=== PATIENT | female | born 1945 | race Caucasian/White ===

== ENCOUNTER 2020-10-15 22:32 | Inpatient (IN) | payer MEDICARE, SELFPAY ==
--- NOTE | 2020-10-15 08:55 | ECG_ITS ---
APPROVED REPORT Exam: Resting ECG HR:118 bpm ECG Measurements Heart Rate 118 AXES OK 166 P 56 QRSd 122 QRS -46 QT 334 T 81 QTc 468 Conclusion Sinus tachycardia Right bundle branch block Left anterior fascicular block Bifascicular block Abnormal ECG Electronically signed by : Ham Payne, 10/16/2020 21:08:26
--- NOTE | 2020-10-15 22:53 | PC.NURSE ---
patient arrived to floor at 22:36.
[2020-10-15 22:57] VITALS: BMI 24.3
[2020-10-16] VITALS (19 sets, daily range): BP systolic 105–134; BP diastolic 56–82; PULSE 98–119; RESP 12–20; TEMP 36.6–43; O2SAT 89–100; BMI 24.4
--- NOTE | 2020-10-16 00:01 | XR_ITS ---
PROCEDURE: XR CHEST PORTABLE CLINICAL HISTORY: sob COMPARISON: No exams were available for comparison FINDINGS: The cardiomediastinal silhouette and pulmonary vascularity are within normal limits. The lungs are clear without infiltrates, suspicious nodules, or pleural effusions. Surgical clips are present in the right paratracheal region. No acute bony finding. IMPRESSION: No acute findings. Dictated by: Jem Patterson MD 10/16/2020 08:27 Jem Patterson MD in [place] 10/16/2020 08:27
--- NOTE | 2020-10-16 00:25 | PC.NURSE ---
Med rec cannot be done at this time, pt is unable to recall medications taken
--- NOTE | 2020-10-16 04:20 | PC.NURSE ---
Pt A&O x4. Lungs CTA, on room air. Pt has been in immense pain since arrival to floor, pain has been partially relieved with dilaudid 1mg per mar. Pt has been NPO since midnight. Bowel soudns x4, abd soft and nontender. IV patent, NS @ 75. VSS, call light in reach, no concerns at this time.
[2020-10-16 07:20] LABS: Basophils % 0.3 % (0.1-2.0); Chloride 103 mmol/L (98-107); Hematocrit 40.6 % (37.0-47.0); Lymphocytes # 1.6 K/mm3 (0.7-4.5); Lymphocytes % 16.1 % (10-50); Mean Corpuscular HGB Conc 32.1 g/dL (31.8-35.4); Mean Corpuscular Hemoglobin 27.1 pg (27.0-31.2); Mean Corpuscular Volume 84.6 fl (81-99); Mean Platelet Volume 8.2 fl (7.4-10.4); Monocytes # 0.4 K/mm3 (0.1-1.0); Monocytes % 4.4 % (1.7-9.3); Neutrophils # 7.6 K/mm3 (1.8-7.8); Platelet Count 208 K/mm3 (142-424); Potassium 3.4 mmoL/L (3.5-5.1); Red Cell Distribution Width 12.5 % (11.5-17.5); Sodium 138 mmol/L (136-145); White Blood Count 9.6 K/mm3 (4.8-10.8)
[2020-10-16 07:23] LABS: Anion Gap 12.4 mEq/L (5-15); Blood Urea Nitrogen 16 mg/dl (7-17); Calcium 9.1 mg/dl (8.4-10.2); Carbon Dioxide 26 mmol/L (22.0-30.0); Creatinine Clearance Estimated 49 mL/min (50-200); Estimated Glomerular Filt Rate 120 ml/min (>60); GFR (African American) 145 ML/MIN (>60); Glucose 130 mg/dl (74-100)
[2020-10-16 07:24] LABS: Magnesium 1.9 mg/dl (1.6-2.3)
[2020-10-16 07:26] LABS: Prothrombin Time 10.7 seconds (10.1-12.5)
--- NOTE | 2020-10-16 07:54 | PC.NURSE ---
Dr. Brown notified of consult.
--- NOTE | 2020-10-16 08:37 | XR_ITS ---
PROCEDURE: XR HIP RT 2-3V W/PELVIS CLINICAL INDICATION: pain Fall with injury and pain COMPARISON: No exams were available for comparison FINDINGS: Fractures present through the right femoral neck in the transcervical/basicervical region with impaction of the fracture fragments. There is foreshortening of the femoral neck by approximately 1.7 cm. The femoral head is located. Mild osteoarthritic changes are present in the hips. There is some mild bony hypertrophy along the anterior superior iliac spine IMPRESSION: Impacted right femoral neck fracture Dictated by: Jem Patterson MD 10/16/2020 09:05 eJm Patterson MD in [facility] 10/16/2020 09:05
--- NOTE | 2020-10-16 09:31 | HMH.HP ---
*Admission Date: 10/15/20 *Chief complaint: fall *History of present illness: this is a wf who had fall at home trip type injury after playing with dog - she is ambulatory and lives at home - she was seen at [facility] and transferred to [facility] for ortho eval and treatment - she has htn but denied ht disease - and no prev issues with prev surg [facility] History I have reviewed the patient's past medical history: Yes Medical History: Reports:: Hyperlipidemia, Hypertension Denies:: Diabetes Mellitus Type 1, Diabetes Mellitus Type 2 *Have you ever received a pneumonia vaccine?: No *Have you received a flu vaccine this season?: No Other Medical History: Reports: Hypothyroidism Other Surgeries: Yes: Appendectomy, Cholecystectomy, Tubal Ligation - *Social History Last grade of school completed: GED Alcohol Intake: never *Occupational Status:: retired Household Members: spouse *Travel in the last 8 weeks: None Family Hx:: Unable to obtain Review of Systems - Review of Systems Review of systems:: pertinent systems reviewed and negative unless documented below - Constitutional Denies fever(s) - Eyes Denies change in vision - ENT Denies sore throat - *Cardiovascular Denies chest pain, Denies shortness of breath - *Respiratory Denies cough - *Gastrointestinal Denies abdominal pain - *Genitourinary Denies blood in urine - *Musculoskeletal Reports joint pain, Reports limited joint movement - Integumentary/Breasts Denies rash - *Neurologic Denies dizziness, Denies headache(s), Denies seizure-like activity - Psychiatric Denies depression Meds Allergies Allergy/AdvReac Type Severity Reaction Status Date / Time acetaminophen [From Percocet] AdvReac Mild Flushing Verified 10/16/20 01:13 oxycodone [From Percocet] AdvReac Mild Flushing Verified 10/16/20 01:13 Opioid Allergy Unknown Uncoded 07/02/17 14:38 Penicillin Allergy Unknown Uncoded 07/02/17 14:38 Sulfonamide Related Allergy Unknown Uncoded 07/02/17 14:38 Exam Vital signs and Labs for Last 24 Hours: Temp Pulse Resp BP Pulse Ox 99.1 F 119 H 18 134/72 90 L 10/16/20 08:00 10/16/20 08:00 10/16/20 08:00 10/16/20 08:00 10/16/20 08:00 Laboratory Results - last 24 hr 10/16/20 06:20: WBC 9.6, RBC 4.80, Hgb 13.0, Hct 40.6, MCV 84.6, MCH 27.1, MCHC 32.1, RDW 12.5, Plt Count 208, MPV 8.2, Neut % (Auto) 79.0, Lymph % (Auto) 16.1, [place]e % (Auto) 4.4, Eos % (Auto) 0.0 L, Baso % (Auto) 0.3, Neut # (Auto) 7.6, Lymph # (Auto) 1.6, [place] # (Auto) 0.4, Eos # (Auto) 0.0, Baso # (Auto) 0.0 10/16/20 06:20: PT 10.7, INR 0.90 10/16/20 06:20: Sodium 138, Potassium 3.4 L, Chloride 103, Carbon Dioxide 26, Anion Gap 12.4, BUN 16, Creatinine 0.50 L, Estimated Creat Clear 49, Estimated GFR 120, Est GFR ( Amer) 145, Glucose 130 H, Calcium 9.1, Magnesium 1.9 I & O for Last 24 hours: Intake & Output 10/13/20 10/14/20 10/15/20 10/16/20 11:59 11:59 11:59 11:59 Output Total 150 / 150 Balance -150 / -150 Weight 143 lb 3 oz - Constitutional no acute distress, average body habitus - *Routine HEENT Exam Head: Present: normocephalic Eye: Present: EOMI, PERRL ENT: Present: mucous membranes dry - *Routine Neck Exam Present: supple. Absent: JVD - *Routine Respiratory Exam Present: CTA bilaterally - *Routine Cardiovascular Exam Present: RRR, murmur, S4 - *Routine Abdominal Exam Present: soft - *Routine Extremities Exam Absent: calf tenderness Comments: rt lower leg shortening with pain with rom - *Routine Skin Exam Present: intact - *Routine Neurological Exam Present: alert, oriented X3, CN II-XII intact. Absent: motor deficit - Routine Psychiatric Exam Present: normal affect Assessment and Plan (1) Hip fracture Status: Acute Qualifiers: Encounter type: initial encounter Fracture type: closed Laterality: right Qualified Code(s): S72.001A - Fracture of unspecified part of neck of right femur, initial encounte
[2020-10-16 10:24] LABS: Microscopic, Urine URINE MICROSCOPIC (MICROSCOPIC)
--- NOTE | 2020-10-16 10:41 | HMH.ORTHOCON ---
*Admission Date: 10/15/20 *Reason for consult:: Fracture neck of femur, right hip *History of present illness: Ms Guerrero is a 75 year old female admitted to [facility] last night following transfer from [facility] for management of her RIGHT hip fracture. She says she is a resident of [place] and went to visit her son. She says a dog jumped on her while she was getting out of the car, causing her to fall and injure the right hip. She says she could not get up or walk after the fall. She reports that she was initially taken to a local hospital from where she was transferred to [facility]. However, [facility] contacted us to transfer the patient as their orthopedic surgeon is out of town for few days. Patient was transferred here last night and admitted to the floor under Dr. Malcolm's team. This morning she says she has pain around the right hip and spasms in the right lower extremity. 2 of her sons are by her bedside; one of the son lives here in [place]. X-rays at [facility] confirmed a displaced subcapital femoral neck fracture on the RIGHT side. Patient says she lives with her . She says she was mobile and independent prior to the fall. She normally does not use any walking aids. She reports that she had back surgery about 5 to 6 years ago and still continues to have occasional back pain. No history of any distal tingling or numbness, radicular symptoms or weakness. No history of any hip pain or problems prior to the fall. She has history of hypertension and hyperlipidemia but otherwise in fairly good health. She denies any other injuries including head injury, neck injury, back injury, chest or abdominal injury or upper extremity injury. She has not otherwise been ill. No history of any dizziness, headache or neck pain. She denies loss of consciousness, chest pain and shortness of breath. [facility] History I have reviewed the patient's past medical history: Yes Medical History: Reports:: Hyperlipidemia, Hypertension Denies:: Diabetes Mellitus Type 1, Diabetes Mellitus Type 2 *Have you ever received a pneumonia vaccine?: No *Have you received a flu vaccine this season?: No Other Medical History: Reports: Hypothyroidism Other Surgeries: Yes: Appendectomy, Cholecystectomy, Tubal Ligation - *Social History Last grade of school completed: GED Alcohol Intake: never *Occupational Status:: retired Household Members: spouse *Travel in the last 8 weeks: None Family Hx:: Unable to obtain Review of Systems - Review of Systems Review of systems:: pertinent systems reviewed and negative unless documented below - Constitutional Denies anorexia, Denies chills, Denies fever(s) - Eyes Denies change in vision - ENT Denies abnormal hearing, Denies change in voice - *Cardiovascular Denies chest pain, Denies shortness of breath - *Respiratory Denies chest congestion, Denies cough - *Gastrointestinal Denies abdominal pain - *Musculoskeletal Reports abnormal walking, Reports limited joint movement - *Neurologic Denies dizziness, Denies headache(s), Denies seizure-like activity - Endocrine Denies cold intolerance, Denies heat intolerance - Hematologic/Lymphatic Denies easy bleeding, Denies easy bruising Meds Allergies Allergy/AdvReac Type Severity Reaction Status Date / Time acetaminophen [From Percocet] AdvReac Mild Flushing Verified 10/16/20 01:13 oxycodone [From Percocet] AdvReac Mild Flushing Verified 10/16/20 01:13 Opioid Allergy Unknown Uncoded 07/02/17 14:38 Penicillin Allergy Unknown Uncoded 07/02/17 14:38 Sulfonamide Related Allergy Unknown Uncoded 07/02/17 14:38 Exam Vital signs and Labs for Last 24 Hours: Temp Pulse Resp BP Pulse Ox 99.1 F 119 H 18 134/72 90 L 10/16/20 08:00 10/16/20 08:00 10/16/20 08:00 10/16/20 08:00 10/16/20 08:00 Laboratory Results - last 24 hr 10/16/20 06:20: WBC 9.6, RBC 4.80, Hgb 13.0, Hc
[2020-10-16 10:43] LABS: Appearance,Urine SL CLOUDY (Clear); Bilirubin,Urine Negative (Negative); Blood, Urine 1+ (Negative); Color,Urine YELLOW (Yellow); Glucose,Urine (UA) Negative (Negative); Ketones,Urine 1+ (Negative); Leukocyte Esterase,Urine Negative (Negative); Nitrate,Urine Negative (Negative); PH,Urine 5.5 (5.0-8.5); Protein,Urine TRACE (Negative); Specific Gravity, Urine >= 1.030 (1.005-1.030); Urobilinogen,Urine 0.2 EU/dl (0.2)
[2020-10-16 11:14] LABS: Amorphous Sediment,Urine 2+ /lpf; Mucus,Urine 1+ /lpf
--- NOTE | 2020-10-16 12:21 | P.PN_ITS ---
[facility] Anesthesia Checklist - Structural Data Admitted From: Inpatient Planned Operative Procedure/s: orif r hip Consent for Planned Operative Procedure(s) Verified: Yes - Airway Assessment C-Spine Mobility Assessed: Yes TMJ Mobility Assessed: Yes Dentition: Poor Dentition - Neurological Assessment Level of Consciousness: Awake, Alert, Appropriate - Anesthesia Plan Anesthesia Risk discussed: Yes Anesthesia Plan: Verified ASA Class: III Anesthesia Type: Spinal [facility] History I have reviewed the patient's past medical history: Yes Medical History: Reports:: Hyperlipidemia, Hypertension Denies:: Diabetes Mellitus Type 1, Diabetes Mellitus Type 2 *Have you ever received a pneumonia vaccine?: No *Have you received a flu vaccine this season?: No Other Medical History: Reports: Hypothyroidism Anesthesia experience/problems:: none Other Surgeries: Yes: Appendectomy, Cholecystectomy, Tubal Ligation - *Social History Last grade of school completed: GED Alcohol Intake: never Substance Use Type: denies use *Occupational Status:: retired Household Members: spouse *Travel in the last 8 weeks: None Family Hx:: Unable to obtain
--- NOTE | 2020-10-16 13:13 | XR_ITS ---
PROCEDURE: XR HIP RT 2-3V W/PELVIS CLINICAL INDICATION: s/p right hip hemiarthroplasty Follow-up surgery COMPARISON: CR XR HIP RT 2-3V W/PELVIS from 10/16/2020 FINDINGS: Status post right hip hemiarthroplasty with good alignment of the prosthesis. Postsurgical gas noted. Hypertrophic change once again noted involving the right anterior superior iliac spine. Mild osteoarthritic change left hip. IMPRESSION: Good alignment status post right hip hemiarthroplasty Dictated by: Jem Patterson MD 10/17/2020 05:22 Jem Patterson MD in [place] 10/17/2020 05:22
--- NOTE | 2020-10-16 13:35 | HMH.ANESI ---
[facility] Anesthesia Record Part I Intake, IV Amount: 2,200 Estimated blood loss (mL): 150 Urine output (mL): 250 Blood Pressure: 107/56 SaO2: 99 Pulse Rate: 104 Respiratory Rate: 12 Temperature: 98.6 F Patient is:: Awake, Stable Stable to PACU at:: 13:25
--- NOTE | 2020-10-16 13:55 | HMH.OPNOTE ---
Date of procedure: 10/16/20 Pre-op Diagnosis:: Displaced subcapital fracture, right hip Post-op Diagnosis:: Same Procedure performed:: Uncemented bipolar hemiarthroplasty, right hip Surgeon:: Manuel Brown MD Performance Improvement Analyst(s):: Gosia Boyer ROD HANGER:: Brendon Hays Anesthesia: spinal Estimated blood loss (mL): 150 Clinical Note:: Patient is a 75-year-old female who sustained a displaced intracapsular fracture neck of right femur following a mechanical fall. A hemiarthroplasty is indicated to relieve pain and restore function. The operation is clinically indicated and is the standard of care for this type of fracture. Please refer to my consult note for full details. Operative findings:: Displaced sub capital femoral neck fracture of the right hip as noted on the preoperative hip x-rays. The articular cartilage of the acetabulum is well preserved without evidence of any significant arthritis. The proximal femur bone quality is good. Operative note:: On the day of the procedure the patient and family were met on the floor, and a physical examination was performed. The operating side and site were marked and initialed by me. I reviewed the diagnosis, natural history and management options in detail including both the nonsurgical and surgical. Given the nature of the fracture, I have recommended surgery in the form of a hemiarthroplasty of the right hip. I have discussed the procedure, risks and benefits, alternatives, potential complications and expected outcomes with the patient and family. The complications discussed include but are not limited to infection, injury to nerves and blood vessels, DVT and PE, femur fracture, limb length inequality, dislocation, implant failure, loosening, acetabular wear, osteolysis, periprosthetic femur fracture, heterotopic ossification, abductor weakness and a limp, incomplete relief of pain, incomplete return of function or motion, likely need for further surgery in future including revision, anesthetic/medical complications including heart attack, stroke, transfusion reactions and even . We discussed how any of these events can be devastating. We have discussed nonsurgical alternatives as well. We also discussed the postoperative course including the rehab and physical therapy required. Patient understood the risks, agreed to proceed with surgery, signed the consent form and no guarantees or assurances were given or implied. The patient was brought to the operating room and a spinal anesthesia was administered by the grain scooper. The patient was then transferred onto the operating table and positioned in the left lateral decubitus position with the right hip facing upwards. All the bony prominences were well-padded. The right lower extremity was then prepped and draped in the usual sterile fashion. The entire operative team used isolation suits and room traffic was controlled. The surgical landmarks and incision was marked over the skin with a marking pen. Ioban sterile drape was used to cover the operative site and isolate the perineum completely from the operative field. Administration of prophylactic IV antibiotics (Ancef and vancomycin) was confirmed with the grain scooper. A preprocedure timeout was performed as per hospital protocol. A posterior approach was used to the hip joint. An electrocautery was used for hemostasis. The skin incision was made centering over the posterior border of the greater trochanter extending posteriorly in a curvilinear fashion across the buttock. The dissection was carried through subcutaneous tissue down to the fascia ashanti. The fascia ashanti and gluteus fascia were split and a Charnley retractor was placed. The trochanteric bursa was then removed with blunt dissection. The sciatic nerve was identified and kept out of the harm's way throughout the rest of the procedure. The hip was then internally rotated and the fat over the external rotators was cleared with a sponge. The short external rotator musc
--- NOTE | 2020-10-16 13:57 | SUR.PHASEI ---
1357-radiology at bedside
--- NOTE | 2020-10-16 14:19 | PC.NURSE ---
1401-detailed report called to SelvinRN 1405-pt transported to 2nd floor room 206 via hospital bed with conchita rails up and left in care of AMAYA Montalvo with bed locked in lowest position, vss, pt stable, family at bedside
--- NOTE | 2020-10-16 14:28 | HMH.PHAVTE ---
[facility] VTE Monitoring - Patient Demographics Admission date: 10/15/20 Report Date: 10/16/20 Time: 14:28 Allergies/Adverse Reactions: Patient Allergies Penicillins Allergy (Verified 10/16/20 14:12) Unknown allergy reaction Sulfa (Sulfonamide Antibiotics) Allergy (Verified 10/16/20 14:12) Unknown allergy reaction acetaminophen [From Percocet] Adverse Reaction (Mild, Verified 10/16/20 01:13) Flushing oxycodone [From Percocet] Adverse Reaction (Mild, Verified 10/16/20 01:13) Flushing Height: 1.63 m Weight: 64.949 kg Patient Problems: Current Active Problems Hip fracture (Acute) RBBB (right bundle branch block with left anterior fascicular block) (Acute) Hypertension (Acute) Hyperlipidemia (Acute) - VTE Risk Labs: VTE Related Lab Results Hgb 13.0 g/dL (12.2-16.2) 10/16/20 06:20 Hct 40.6 % (37.0-47.0) 10/16/20 06:20 Plt Count 208 K/mm3 (142-424) 10/16/20 06:20 PT 10.7 seconds (10.1-12.5) 10/16/20 06:20 INR 0.90 (0.9-1.1) 10/16/20 06:20 BUN 16 mg/dl (7-17) 10/16/20 06:20 Creatinine 0.50 mg/dl (0.52-1.04) L 10/16/20 06:20 Estimated Creat Clear 49 mL/min (50-200) 10/16/20 06:20 VTE Score: 3 VTE Risk Level: Low Risk - Prophylaxis VTE Prophylaxis Ordered?: Yes Types of VTE Prophylaxis: IPCS Thigh High, Pharmacological Location of Applied Device: Bilateral Lower Extremeties Pharmacologic Type: Enoxaparin
--- NOTE | 2020-10-16 21:17 | PC.NURSE ---
PT IS RESTING IN BED. ALERT AND ORIENTED X4. PT HAS NOT COMPLAINED OF ANY PAIN SINCE SURGERY BUT STATED SHE WAS HAVING SOME NAUSEA AND HEARTBURN. PT HAD A DOSE OF ZOFRAN. DR. LUGO NOTIFIED AND HE STATED TO GIVE PT A ONE TIME DOSE OF REGLAN 10 MG IV. BEFORE GIVING THE REGLAN PT VOMITED UP A MODERATE AMOUNT OF COFFEE GROUND EMESIS. NOTIFIED AND HE ORDERED PROTONIX IV 40 MG BID AND HE WANTS GENERAL SURGERY TO SEE PT TOMORROW FOR A POSSIBLE EGD. PT WILL ALSO NEED TO BE NPO. PT HAS NOT VOMITED SINCE SHE HAD PROTONIX. TOLERATED BATH AND BED CHANGE. LUNG SOUNDS CLEAR. ABDOMEN SOFT/NON TENDER WITH ACTIVE BOWEL SOUNDS. DRESSING TO THE RT HIP C/D/I. KELVIN NOTED TO THE LLE. PT WAS TURNED AND REPOSITIONED AFTER BATH. HEEL PROTECTORS ON. PALPABLE PULSES. VSS. WILL CONTINUE TO MONITOR.
[2020-10-17] VITALS (7 sets, daily range): BP systolic 111–146; BP diastolic 53–75; PULSE 100–118; RESP 16–20; TEMP 36.8–37.3; O2SAT 93–99
--- NOTE | 2020-10-17 04:12 | PC.NURSE ---
No acute changes this shift, Pt A&O x4, lungs CTA, Pt on 2L NC PRN, Bowel sounds present in all 4 quadrants, cheema catheter in place and patent, yellow urine flowing, Pt Rt hip dressing CDI, Pt denies SOA, headache, N/V, Pt medicated for pain per MAR
[2020-10-17 06:59] LABS: Basophils % 0.4 % (0.1-2.0); Eosinophils % 0.3 % (0.1-12.0); Hematocrit 31.3 % (37.0-47.0); Lymphocytes # 1.3 K/mm3 (0.7-4.5); Lymphocytes % 15.7 % (10-50); Mean Corpuscular Hemoglobin 27.6 pg (27.0-31.2); Mean Corpuscular Volume 86.4 fl (81-99); Mean Platelet Volume 8.4 fl (7.4-10.4); Monocytes # 0.4 K/mm3 (0.1-1.0); Monocytes % 5.1 % (1.7-9.3); Neutrophils # 6.4 K/mm3 (1.8-7.8); Neutrophils % 78.5 % (37.0-80.0); Platelet Count 160 K/mm3 (142-424); Red Blood Count 3.62 M/mm3 (4.20-5.40); Red Cell Distribution Width 12.7 % (11.5-17.5); White Blood Count 8.2 K/mm3 (4.8-10.8)
[2020-10-17 07:02] LABS: Chloride 108 mmol/L (98-107); Potassium 3.2 mmoL/L (3.5-5.1); Sodium 138 mmol/L (136-145)
[2020-10-17 07:05] LABS: Alanine Aminotransferase 19 U/L (12-78); Albumin Level 3.2 g/dl (3.5-5.0); Albumin/Globulin Ratio 1.3 (1.1-1.8); Alkaline Phosphatase 54 U/L (38-126); Anion Gap 6.2 mEq/L (5-15); Aspartate Amino Transferase 44 U/L (14-36); Bilirubin,Total 0.6 mg/dl (0.2-1.3); Blood Urea Nitrogen 12 mg/dl (7-17); Carbon Dioxide 27 mmol/L (22.0-30.0); Creatinine Clearance Estimated 49 mL/min (50-200); Estimated Glomerular Filt Rate 155 ml/min (>60); GFR (African American) 188 ML/MIN (>60); Globulin 2.5 g/dL (1.3-3.2); Total Protein,Serum 5.7 g/dl (6.3-8.2)
[2020-10-17 07:06] LABS: Calcium 8.2 mg/dl (8.4-10.2); Glucose 121 mg/dl (74-100)
--- NOTE | 2020-10-17 07:28 | P.PN_ITS ---
[facility] Anesthesia Record Part II Discharge Time: 14:05 Destination: Obstetric PACU nurse assessment reviewed?: Yes Patient Condition:: Good Anesthesia Complications:: None Swallowing reflex intact?: Yes Cyanosis?: No Blood Pressure: 111/60 Pulse Rate: 100 Temperature: 98.5 F Mental Status: Alert & Oriented Pain level:: 0 Nausea and/or vomitting:: None Intake, IV Amount: 0
--- NOTE | 2020-10-17 08:00 | PC.NURSE ---
PT ASSESSED AT THIS TIME. BILATERAL LUNG SOUNDS CLEAR. NO EDEMA NOTED. INDWELLING CATHETER PATENT AND DRAINING DARK YELLOW URINE. 93% SPO2 ON 2L NC. IV INFUSING WELL. PAIN RATED 8/10 ON VERBAL SCALE R/T R HIP. INCISIONAL DRESSING C/D/I NO DRAINAGE NOTED. PT IN BED AND WEDGE IN PLACE. WILL CONTINUE TO OBSERVE.
--- NOTE | 2020-10-17 08:00 | HMH.PHAINT ---
MEDICATION RECONCILIATION COMPLETED ON PATIENT USING EXTERNAL FILL HISTORY FROM PHARMACY. -ANNMARIE SIEGEL, NIMAD
--- NOTE | 2020-10-17 08:05 | PC.NURSE ---
DR. BAILON AT BEDSIDE FOR CONSULT. STATES HE DOES NOT WANT TO PERFORM A PROCEDURE AT THIS TIME. STATES FOR NURSING TO CONTINUE TO ASSESS EMESIS AND BM FOR SIGNS OF BLEEDING AND NOTIFY HIM.
--- NOTE | 2020-10-17 08:20 | HMH.GSCON ---
*Admission Date: 10/15/20 *Reason for consult:: Possible coffee-ground emesis *History of present illness: Patient is a pleasant 75-year-old female who was transferred to [facility] after she sustained a right hip fracture at outside facility. She underwent right hip hemiarthroplasty yesterday morning. Reportedly in the postoperative period she had some vomiting which was possibly coffee-ground. Patient does not recall this. She had no preceding gastrointestinal complaints and none at this point. Denies any known hematemesis. No melena. Review of Systems - Review of Systems Review of systems:: pertinent systems reviewed and negative unless documented below - *Neurologic Reports abnormal walking, Denies abnormal hearing, Denies dizziness, Denies headache(s), Denies seizure-like activity [facility] History I have reviewed the patient's past medical history: Yes Medical History: Reports:: Hyperlipidemia, Hypertension Denies:: Diabetes Mellitus Type 1, Diabetes Mellitus Type 2 *Have you ever received a pneumonia vaccine?: No *Have you received a flu vaccine this season?: No Other Medical History: Reports: Hypothyroidism Anesthesia experience/problems:: none Other Surgeries: Yes: Appendectomy, Cholecystectomy, Tubal Ligation - *Social History Last grade of school completed: GED Alcohol Intake: never Substance Use Type: denies use *Occupational Status:: retired Household Members: spouse *Travel in the last 8 weeks: None Family Hx:: Unable to obtain Meds Home Medications Medication Instructions Recorded Confirmed Type Cholecalciferol (Vitamin D3) 50,000 unit PO WEEKLY 10/16/20 10/16/20 History [Vitamin D3 50,000 unit Cap] Metoprolol Tartrate 50 mg PO DAILY 10/16/20 10/16/20 History Omeprazole [Omeprazole 40mg 40 mg PO DAILY 10/16/20 10/16/20 History Capsule] Sennosides/Docusate Sodium 1 each PO DAILY 10/16/20 10/16/20 History [Docusate Sodium-Senna Tablet] Simvastatin 20 mg PO HS 10/16/20 10/17/20 History diphenhydrAMINE HCL 25 mg PO DAILY 10/16/20 10/16/20 History [Diphenhydramine HCl] Carbidopa/Levodopa 1 each PO HS 10/17/20 10/17/20 History [Carbidopa/Levodopa 25/100mg Tablet] Allergies Allergy/AdvReac Type Severity Reaction Status Date / Time Penicillins Allergy Unknown Verified 10/16/20 14:12 allergy reaction Sulfa (Sulfonamide Allergy Unknown Verified 10/16/20 14:12 Antibiotics) allergy reaction acetaminophen [From Percocet] AdvReac Mild [place] Verified 10/16/20 01:13 oxycodone [From Percocet] AdvReac Mild [place] Verified 10/16/20 01:13 Exam Vital signs and Labs for Last 24 Hours: Temp Pulse Resp BP Pulse Ox 98.5 F 100 H 19 111/60 94 L 10/17/20 07:29 10/17/20 07:29 10/17/20 04:00 10/17/20 07:29 10/17/20 04:00 Laboratory Results - last 24 hr 10/16/20 09:50: Urine Color Yellow, Urine Appearance Sl cloudy, Urine pH 5.5, Ur Specific [place] >= 1.030, Urine Protein Trace, Urine Glucose (UA) Negative, Urine Ketones 1+, Urine Blood 1+, Urine Nitrate Negative, Urine Bilirubin Negative, Urine Urobilinogen 0.2, Ur Leukocyte Esterase Negative, Urine RBC 10-20, Urine WBC 5-10, Ur Squamous Epith Cells 5-10, Amorphous Sediment 2+, Urine Bacteria None, Urine Mucus 1+ 10/16/20 10:30: Blood Type A Negative, Antibody Screen Negative 10/17/20 06:41: WBC 8.2, RBC 3.62 L, Hgb 10.0 L, Hct 31.3 L, MCV 86.4, MCH 27.6, MCHC 32.0, RDW 12.7, Plt Count 160, MPV 8.4, Neut % (Auto) 78.5, Lymph % (Auto) 15.7, [place] % (Auto) 5.1, Eos % (Auto) 0.3, Baso % (Auto) 0.4, Neut # (Auto) 6.4, Lymph # (Auto) 1.3, [place] # (Auto) 0.4, Eos # (Auto) 0.0, Baso # (Auto) 0.0 10/17/20 06:41: Sodium 138, Potassium 3.2 L, Chloride 108 H, Carbon Dioxide 27, Anion Gap 6.2, BUN 12, Creatinine 0.40 L, Estimated Creat Clear 49, Estimated GFR 155, Est GFR ( Amer) 188 D, Glucose 121 H, Calcium 8.2 L, Total Bilirubin 0.6, AST 44 H, ALT 19, Alkaline Phosphatase 54, Total Protein 5.7 L, Al
--- NOTE | 2020-10-17 09:00 | PC.NURSE ---
PT X1 ASSIST TO CHAIR AT THIS TIME VIA PHYSICAL THERAPY. PT TOLERATED WELL.
--- NOTE | 2020-10-17 10:35 | HMH.ACPN2 ---
Internal Medicine - PN: Subj *Date: 10/18/20 *Time: 12:30 Interval history: doing better and no more episodes of vomiting - has pain assoc with hip repair Exam Vital signs and Labs for Last 24 Hours: Temp Pulse Resp BP Pulse Ox 98.5 F 100 H 19 111/60 94 L 10/17/20 07:29 10/17/20 07:29 10/17/20 04:00 10/17/20 07:29 10/17/20 04:00 Laboratory Results - last 24 hr 10/16/20 09:50: Urine Color Yellow, Urine Appearance Sl cloudy, Urine pH 5.5, Ur Specific [place] >= 1.030, Urine Protein Trace, Urine Glucose (UA) Negative, Urine Ketones 1+, Urine Blood 1+, Urine Nitrate Negative, Urine Bilirubin Negative, Urine Urobilinogen 0.2, Ur Leukocyte Esterase Negative, Urine RBC 10-20, Urine WBC 5-10, Ur Squamous Epith Cells 5-10, Amorphous Sediment 2+, Urine Bacteria None, Urine Mucus 1+ 10/16/20 10:30: Blood Type A Negative, Antibody Screen Negative 10/17/20 06:41: WBC 8.2, RBC 3.62 L, Hgb 10.0 L, Hct 31.3 L, MCV 86.4, MCH 27.6, MCHC 32.0, RDW 12.7, Plt Count 160, MPV 8.4, Neut % (Auto) 78.5, Lymph % (Auto) 15.7, [place] % (Auto) 5.1, Eos % (Auto) 0.3, Baso % (Auto) 0.4, Neut # (Auto) 6.4, Lymph # (Auto) 1.3, [place] # (Auto) 0.4, Eos # (Auto) 0.0, Baso # (Auto) 0.0 10/17/20 06:41: Sodium 138, Potassium 3.2 L, Chloride 108 H, Carbon Dioxide 27, Anion Gap 6.2, BUN 12, Creatinine 0.40 L, Estimated Creat Clear 49, Estimated GFR 155, Est GFR ( Amer) 188 D, Glucose 121 H, Calcium 8.2 L, Total Bilirubin 0.6, AST 44 H, ALT 19, Alkaline Phosphatase 54, Total Protein 5.7 L, Albumin 3.2 L, Globulin 2.5, Albumin/Globulin Ratio 1.3 I & O for Last 24 hours: Intake & Output 10/14/20 10/15/20 10/16/20 10/17/20 11:59 11:59 11:59 11:59 Intake Total 2200 / 2200 Output Total 150 / 150 1775 / 1775 Balance -150 / -150 425 / 425 Weight 143 lb 3 oz Microbiology Reports for the Last 24 Hours: Microbiology 10/15/20 10:30 Nasopharyngeal Coronavirus COVID-19 PCR - Final - Constitutional no acute distress - *Routine HEENT Exam Head: Present: normocephalic Eye: Present: EOMI, PERRL ENT: Present: mucous membranes dry - *Routine Neck Exam Present: supple. Absent: JVD - *Routine Respiratory Exam Present: CTA bilaterally - *Routine Cardiovascular Exam Present: RRR - *Routine Abdominal Exam Present: soft - *Routine Extremities Exam Absent: calf tenderness - *Routine Skin Exam Present: intact - *Routine Neurological Exam Present: alert, CN II-XII intact - Routine Psychiatric Exam Present: normal affect Assessment and Plan (1) Hip fracture Status: Acute Qualifiers: Encounter type: initial encounter Fracture type: closed Laterality: right Qualified Code(s): S72.001A - Fracture of unspecified part of neck of right femur, initial encounter for closed fracture Category: Medical Code(s): S72.009A - Fracture of unspecified part of neck of unspecified femur, initial encounter for closed fracture (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
--- NOTE | 2020-10-17 10:44 | HMH.PTEV ---
Physical Therapy Evaluation Rehab PT IP Evaluation Start: 10/16/20 13:51 Freq: ONCE Status: Active Protocol: Document 10/17/20 09:00 PHORNE (Rec: 10/17/20 10:44 PHORNE [id number]) Subjective/History History History 75 yowf adm to [facility] after fall at home with R hip fx, now S/P ALLI. She reports she has no stairs at home, lives with her , and is independent with ambulation at baseline. Subjective Subjective Pt c/o pain in the R hip Rehab PT IP Eval Objective Appearance Patient Behavior Appropriate Patient Orientation Person,Place,Time Difficulty following instructions none Speech Pattern Clear Ambulation Patient Able to Ambulate Yes Ambulation Observation IP General Gait Pattern Observation Antalgic Gait,Decrease Weight Bear (L),Decrease Stride Lngth (R),Decrease Stride Lngth (L) Ambulation Distance (feet) 4 Ambulation Assistive Device Rolling Walker Ambulation Ability Minimal x 1 (25% assist) Balance Ability to Arise Able, uses arms to help Sitting Balance Steady, safe Standing Balance Narrow stance w/o support Dynamic Sitting Balance Ability Good Dynamic Standing Balance Ability Fair Transfers Bed Transfer Ability Minimal x 1 (25% assist) Chair Transfer Ability Minimal x 1 (25% assist) Sit to Stand Bed Transfer Ability Minimal x 1 (25% assist) Sit to Stand Chair Transfer Ability Minimal x 1 (25% assist) ROM All Extremities PT ROM Status WFL MMT All Extremities PT MMT WFL Rehab PT IP prob,goals,plan Problems Date of Evaluation: 10/17/20 PT IP Problems Bed Mobility,Transfers,Gait Rehab Potential Rehab Potential Good Equipment Needs Assistive Devices Rolling / Wheeled Walker Plan PT Intervention Plan Bed Mobility,Transfers,Gait, Therapeutic Exercise PT Plan Frequency BID Duration LOS Discharge Goals Bed Transfer Ability Contact Guard/Hand Hold Sit to Stand Chair Transfer Ability Contact Guard/Hand Hold Ambulation Assistive Device Rolling Walker Ambulation Distance (feet) 25 Discharge Plan PT Discharge Plan Pt is most appropriate for rehab placement at this time. However she could return home once medically stable if she has assistance at home. G -code Required No Eval
--- NOTE | 2020-10-17 11:13 | HMH.OTEV ---
OT Inpatient Evaluation Rehab OT IP Evaluation Start: 10/16/20 13:51 Freq: ONCE Status: Complete Protocol: Document 10/17/20 11:07 ASHELYBEN (Rec: 10/17/20 11:12 LÓPEZ [id number]) Rehab OT IP Assessment Subjective History Patient is a 75-year-old female who sustained a displaced intracapsular fracture neck of right femur following a mechanical fall. A hemiarthroplasty is indicated to relieve pain and restore function. The operation is clinically indicated and is the standard of care for this type of fracture. Please refer to my consult note for full details. Displaced sub capital femoral neck fracture of the right hip as noted on the preoperative hip x-rays. The articular cartilage of the acetabulum is well preserved without evidence of any significant arthritis. The proximal femur bone quality is good. Uncemented bipolar hemiarthroplasty, right hip. PMH: Hyperlipidemia, Hypertension Subjective I can try to get up. Instructed Patient on safety awareness during functional transfers with usage of RW x2. Instructed Patient on safety awareness from standing->SPT to EOB->supine requiring Min A . No LOB noted. Objective Patient Orientation Person,Place,Name,Age,Birthday ,Year,Situation Upper Extremity Gross ROM WNL Bed Mobility bed mobility - supine/sit Assist Level Minimal x 1 (25% assist) Transfer Training Sit/Stand/Pivot Transfer Assist Level Minimal x 1 (25% assist) Chair Transfer Ability Minimal x 1 (25% assist) Chair Transfer Technique Stand Step Pivot Chair Transfer Assistive Devices Rolling Walker Rehab OT IP prob,goals,plan Problems Date of Evaluation: 10/17/20 OT IP Problems Bed Mobility,Transfers,Balance ,Self care,Safety Rehab Potential
--- NOTE | 2020-10-17 11:18 | SW/DCPLANNER ---
Addendum entered by Sammie Arcadia 10/18/20 09:06: Hailey with [facility] has called me stating they can accept this patient today for their swingbed. I have notified patients family and nurse (Lis Tate) along with . Patient will discharge today. Hailey has stated that no further COVID testing is needed at this time. Report # [phone] Fax # for discharge [phone] Addendum entered by Sammie Arcadia 10/17/20 14:14: Hailey with [facility] has called stating they are interested in this patient and currently discussing patient with Finance. Hailey stated that she will call me back once she starts precert if approved. Addendum entered by Sammie Arcadia 10/17/20 11:59: Patient has called me back to her room stating that her daughter in law works for [facility] and she would like to go there to the Swingbed Unit. I spoke with daughter in law (Anna) and she stated that [employer] [facility] [employer] [facility] (Hailey) is currently waiting for referral and they do have beds available. Patient information has been faxed to Hailey and I will follow up with her once information is reviewed. I also informed Halina at [facility] to please disregard referral. [facility] (Hailey) fax #: [phone] Original Note: I have spoke with this patient regarding discharge plans due to hip surgery. Patient stated that she resides in [place] and would have 24/7 assistance at home. After lengthy discussion placement vs home health patient is agreeable for me to fax information to [facility]. I have spoke with Halina at [facility] and they do have female beds available. Patient stated that she would be agreeable to placement only in [facility]. Patient information has been faxed to Halina. I will follow up with Halina once information is reviewed. Discharge date is unknown at this time.
--- NOTE | 2020-10-17 14:30 | PC.NURSE ---
PT AMBULATED TO BR AND BACK TO BED WITH ROLLING WALKER AND X1 ASSIST. PT TOLERATED WELL.
--- NOTE | 2020-10-17 17:15 | HMH.ORTHPN ---
Subjective Date: 10/17/20 Time: 16:30 Principal diagnosis: Fracture neck of femur, right hip Interval history: Patient is status post right hip bipolar hemiarthroplasty post op day #1. Patient is lying down in the bed. Her son is by her bedside. Patient says she is doing well and reports no problems. Patient has minimal pain and says it's well-controlled with as needed pain medication. No history of any nausea or vomiting. No history of any cough, chest pain, shortness of breath or palpitations. No history of any distal tingling or numbness. PN: Obj Ex Vital signs: Temp Pulse Resp BP Pulse Ox 98.3 F 118 H 18 146/75 H 93 L 10/17/20 08:00 10/17/20 08:00 10/17/20 08:00 10/17/20 08:00 10/17/20 08:00 Narrative: Laboratory Results - last 24 hr 10/17/20 06:41: WBC 8.2, RBC 3.62 L, Hgb 10.0 L, Hct 31.3 L, MCV 86.4, MCH 27.6, MCHC 32.0, RDW 12.7, Plt Count 160, MPV 8.4, Neut % (Auto) 78.5, Lymph % (Auto) 15.7, [place] % (Auto) 5.1, Eos % (Auto) 0.3, Baso % (Auto) 0.4, Neut # (Auto) 6.4, Lymph # (Auto) 1.3, [place] # (Auto) 0.4, Eos # (Auto) 0.0, Baso # (Auto) 0.0 10/17/20 06:41: Sodium 138, Potassium 3.2 L, Chloride 108 H, Carbon Dioxide 27, Anion Gap 6.2, BUN 12, Creatinine 0.40 L, Estimated Creat Clear 49, Estimated GFR 155, Est GFR ( Amer) 188 D, Glucose 121 H, Calcium 8.2 L, Total Bilirubin 0.6, AST 44 H, ALT 19, Alkaline Phosphatase 54, Total Protein 5.7 L, Albumin 3.2 L, Globulin 2.5, Albumin/Globulin Ratio 1.3 Intake & Output 10/15/20 10/16/20 10/17/20 10/18/20 11:59 11:59 11:59 11:59 Intake Total 2320 / 2320 240 / 240 Output Total 150 / 150 2175 / 2175 250 / 250 Balance -150 / -150 145 / 145 -10 / -10 Weight 143 lb 3 oz Exam General appearance: alert, active, awake, no acute distress Cardiovascular: regular rate & rhythm, normal peripheral pulses Respiratory: Speaks in full sentences; no respiratory distress stress noted ABD: soft and non tender Neuro: alert, awake, oriented x 3 On examination of the lower extremities the limb lengths are equal. Thigh and calf are soft and nontender. On examination of the right hip the dressings are clean, dry and intact. No evidence of any bleeding or other complications noted. Distal pulses are 1+. Distal sensation is intact to light touch throughout. No motor deficits noted distally. Postoperative check x-ray is satisfactory. - Urinary Catheter Management [place] Cath placed during this visit: no Progress Note: A&P (1) Hip fracture Status: Acute (2) RBBB (right bundle branch block with left anterior fascicular block) Status: Acute (3) Hypertension Status: Acute (4) Hyperlipidemia Status: Acute Assessment and Plan for All Diagnoses:: I have reviewed the findings and progress with the patient. Overall she is doing well and reports no problems. She started mobilization and is mobilizing well with the walker and and help from physical therapist. Use abduction pillow when in bed and continue using this for 6 weeks postop. Continue standard precautions for posterior approach to the hip joint. Discontinue IV fluids as patient is eating and drinking well. Continue DVT prophylaxis for 6 weeks (Appropriate agents include [id number] aspirin, subcu Lovenox, warfarin, Xarelto, Eliquis and similar). Continue physical therapy. Patient can be discharged as appropriate from an orthopedic standpoint. Follow-up in my office in 2 weeks time. Continue medical management as per Dr. Malcolm.
--- NOTE | 2020-10-17 19:10 | PC.NURSE ---
report received from leila montilla rn
--- NOTE | 2020-10-17 19:18 | PC.NURSE ---
report given to Brandt Cornejo RN.
--- NOTE | 2020-10-17 19:30 | INFXCTL.NOTE ---
PATIENT AMBULATED TO AND FROM BATHROOM WITH WALKER AND STANDBY ASSIST. PATIENT TOLERATED WELL.
--- NOTE | 2020-10-17 21:20 | PC.NURSE ---
PATIENT AMBULATED TO [facility] AT THIS TIME. TOLERATED WELL WITH STANDBY ASSIST.
[2020-10-18 00:30] VITALS: BP 109/55; PULSE 107; RESP 20; TEMP 36.9; O2SAT 95
[2020-10-18 04:00] VITALS: BP 140/72; PULSE 104; RESP 20; TEMP 36.7; O2SAT 95
--- NOTE | 2020-10-18 04:23 | PC.NURSE ---
NO ACUTE CHANGES THIS SHIFT. PT IS A&O X4. VSS, LUNGS CTAB AND BOWELS ACTIVE X4 QUADRANTS. PAIN MANAGED WWELL ITH MEDICATION PER MAR. PATIENT HAS AMBULATED WELL TO RESTROOM AND BSC TO VOID. URINE OUTPUT IS ADEQUATE AND CLEAR, YELLOW URINE.
--- NOTE | 2020-10-18 07:01 | PC.NURSE ---
report given to chu montilla rn
[2020-10-18 07:50] VITALS: PULSE 108; RESP 20; O2SAT 94
--- NOTE | 2020-10-18 07:50 | PC.NURSE ---
ASSESSMENT COMPLETED AT THIS TIME. LUNGS CTA AND BOWEL SOUNDS ACTIVE X4. REPORTS PASSING GAS BUT NO BM. ENCOURAGED USE OF INCENTIVE SPRIO. RIGHT HIP WITH DRESSING THAT IS C/D/I. STATES MD IS GOING TO CHANGE THIS TODAY. PULSES 2+ PEDAL, CAP REFIL <3SECONDS. RATES PAIN AN 8/10 RIGHT NOW- R/T JUST GETTIG UP. PT WALKS WELL WITH STANDBY ASSIST. A/O X4. NO NEEDS. CALL LIGHT WITHIN REACH
--- NOTE | 2020-10-18 07:50 | PC.NURSE ---
Patient up to bedside commode- standby assist. tolerated well.
[2020-10-18 08:00] VITALS: BP 156/71; PULSE 105; RESP 20; TEMP 37.1; O2SAT 94
--- NOTE | 2020-10-18 08:35 | PC.NURSE ---
08:35 spoke with merlin zapata APRN ABOUT PATIENTS IV BEING D/C R/T LEAKING- HE STATES DO NOT RESTART IV AND PATIENT CAN HAVE PEPCID 40MG PO INSTEAD OF IV. R/V ALL ORDERS
--- NOTE | 2020-10-18 09:01 | PC.NURSE ---
patient up to chair. vanilla essure given to patient for breakfast at this time. no other needs voiced to nurse
--- NOTE | 2020-10-18 09:26 | HMH.DCSUM ---
General - General Admission date:: 10/15/20 Discharge date: 10/18/20 HPI HPI: this is a wf who had fall at home trip type injury after playing with dog - she is ambulatory and lives at home - she was seen at [facility] and transferred to [facility] for ortho eval and treatment - she has htn but denied ht disease - and no prev issues with prev surg Hospital Course Hospital Course: Ms Guerrero is a 75 year old female admitted to [facility] last night following transfer from [facility] for management of her RIGHT hip fracture. She says she is a resident of [place] and went to visit her son. She says a dog jumped on her while she was getting out of the car, causing her to fall and injure the right hip. She says she could not get up or walk after the fall. She reports that she was initially taken to a local hospital from where she was transferred to [facility]. However, [facility] contacted us to transfer the patient as their orthopedic surgeon is out of town for few days. Patient was transferred here last night and admitted to the floor under Dr. Malcolm's team. This morning she says she has pain around the right hip and spasms in the right lower extremity. 2 of her sons are by her bedside; one of the son lives here in [place]. X-rays at [facility] confirmed a displaced subcapital femoral neck fracture on the RIGHT side. Patient says she lives with her . She says she was mobile and independent prior to the fall. She normally does not use any walking aids. She reports that she had back surgery about 5 to 6 years ago and still continues to have occasional back pain. No history of any distal tingling or numbness, radicular symptoms or weakness. No history of any hip pain or problems prior to the fall. She has history of hypertension and hyperlipidemia but otherwise in fairly good health. She denies any other injuries including head injury, neck injury, back injury, chest or abdominal injury or upper extremity injury. She has not otherwise been ill. No history of any dizziness, headache or neck pain. She denies loss of consciousness, chest pain and shortness of breath. 10/16/20 chest x-ray: No acute findings 10/16/20 R Hip XR: FINDINGS: Fractures present through the right femoral neck in the transcervical/basicervical region with impaction of the fracture fragments. There is foreshortening of the femoral neck by approximately 1.7 cm. The femoral head is located. Mild osteoarthritic changes are present in the hips. There is some mild bony hypertrophy along the anterior superior iliac spine IMPRESSION: Impacted right femoral neck fracture Dictated by: Leonardo 10/16/20 R Hip XR: Post Uncemented bipolar hemiarthroplasty, right hip FINDINGS: Status post right hip hemiarthroplasty with good alignment of the prosthesis. Postsurgical gas noted. Hypertrophic change once again noted involving the right anterior superior iliac spine. Mild osteoarthritic change left hip. IMPRESSION: Good alignment status post right hip hemiarthroplasty Dictated by: Leonardo, 10/16/20 Ortho performed a Uncemented bipolar hemiarthroplasty, right hip Ortho has seen and recommends: I have reviewed the findings and progress with the patient. Overall she is doing well and reports no problems. She started mobilization and is mobilizing well with the walker and and help from physical therapist. Use abduction pillow when in bed and continue using this for 6 weeks postop. Continue standard precautions for posterior approach to the hip joint. Discontinue IV fluids as patient is eating and drinking well. Continue DVT prophylaxis for 6 weeks (Appropriate agents include [id number] aspirin, subcu Lovenox, warfarin, Xarelto, Eliquis and similar). Continue physical therapy. Patient can be discharged as appropriate from an orthopedic standpoint. Follow-up in my off
--- NOTE | 2020-10-18 12:04 | PC.NURSE ---
ATTEMPTED TO CALL REPORT TO [facility]. NO ANSWER WILL TRY AGAIN
--- NOTE | 2020-10-18 12:24 | PC.NURSE ---
REPORT CALLED TO DIANNE CONDE AT THIS TIME
--- NOTE | 2020-10-18 13:06 | PC.NURSE ---
CALLED DR. GERARDO OFFICE. REPORTED TO HAVE DR. OROZCO TO COME TO OB
--- NOTE | 2020-10-18 13:30 | PC.NURSE ---
DR. MATOS HERE CHANGING PATIENTS DRESSING- DR. MATOS EDUCATED PATIENT ON THIS. MD REPORTS SHE IS GOOD TO GO
== END 2020-10-18 14:30 | DRG 522 ==
LOC: 2ND 10-16 13:48 → OB 10-16 21:56
PROVIDERS: Orthopaedic Surgery; Admitting Provider Emergency Medicine; PCP Family Medicine; Visit Provider Emergency Medicine
PROC: 0SRR03A Replacement of Right Hip Joint, Femoral Surface with Ceramic Synthetic Substitute, Uncemented, Open Approach (ICD-10-PCS; CPT 27125; principal; 2020-10-16 10:30)
DX: S72.011A Unspecified intracapsular fracture of right femur, initial encounter for closed fracture (principal); V48.4XXA Person boarding or alighting a car injured in noncollision transport accident, initial encounter; Y92.014 Private driveway to single-family (private) house as the place of occurrence of the external cause; I44.7 Left bundle-branch block, unspecified; I10 Essential (primary) hypertension; E78.5 Hyperlipidemia, unspecified; Z79.899 Other long term (current) drug therapy; Z88.2 Allergy status to sulfonamides; Z88.1 Allergy status to other antibiotic agents; Z88.8 Allergy status to other drugs, medicaments and biological substances
CPT/HCPCS: 27236; 36415; 71045; 73502; 80048; 80053; 81001; 83735; 85025; 85610; 86850; 93005; 93306; 97116; 97162; 97165; 97530; C1713; C1776; J2405; U0003

== ENCOUNTER → 2020-11-01 13:15 | Outpatient (CLI) | payer MEDICARE, SELFPAY ==
--- NOTE | 2020-11-01 13:20 | XR_ITS ---
PROCEDURE: XR HIP RT 2-3V W/PELVIS CLINICAL INDICATION: rt hip fracture COMPARISON: CR XR HIP RT 2-3V W/PELVIS from 10/16/2020 FINDINGS: Post right hip hemiarthroplasty with good alignment. No acute fracture or dislocation. No evidence of prosthesis loosening or dislocation. IMPRESSION: Good alignment status post right hip hemiarthroplasty Dictated by: Jem Patterson MD 11/01/2020 17:47 Jem Patterson MD in [place] 11/01/2020 17:47
== END ==
PROVIDERS: PCP Family Medicine; Visit Provider Orthopaedic Surgery
DX: S72.001A Fracture of unspecified part of neck of right femur, initial encounter for closed fracture (principal)
CPT/HCPCS: 73502

== ENCOUNTER → 2020-11-29 12:07 | Outpatient (CLI) | payer MEDICARE, SELFPAY ==
--- NOTE | 2020-11-29 12:16 | XR_ITS ---
PROCEDURE: XR HIP RT 2-3V W/PELVIS CLINICAL INDICATION: sp RT bipolar hemiarthroplasty, DOS 10/16/20 COMPARISON: CR XR HIP RT 2-3V W/PELVIS from 11/01/2020 FINDINGS: Status post right hip hemiarthroplasty. Bipolar prosthesis is present in good position with no obvious orthopedic complications. Incidental note made of degenerative changes of the lumbar spine and mild osteoarthritis of the left hip. The tip of the prosthesis is not imaged on the AP view but is seen on the cross-table lateral view and has an unremarkable appearance. IMPRESSION: Status post right hip hemiarthroplasty with good alignment Dictated by: Jem Patterson MD 11/29/2020 14:33 Jem Patterson MD in [facility] 11/29/2020 14:33
== END ==
PROVIDERS: PCP Family Medicine; Visit Provider Orthopaedic Surgery
DX: Z09 Encounter for follow-up examination after completed treatment for conditions other than malignant neoplasm (principal); M25.551 Pain in right hip
CPT/HCPCS: 73502

== ENCOUNTER → 2021-01-11 12:30 | Outpatient (CLI) | payer MEDICARE, SELFPAY ==
--- NOTE | 2021-01-11 12:35 | XR_ITS ---
PROCEDURE: XR HIP RT 2-3V W/PELVIS CLINICAL INDICATION: sp RT bipolar hemiarthroplasty Follow-up surgery COMPARISON: CR XR HIP RT 2-3V W/PELVIS from 11/29/2020 FINDINGS: Status post right hip hemiarthroplasty. There is good alignment of the prosthesis with no obvious orthopedic complications. IMPRESSION: Good alignment status post right hip hemiarthroplasty Dictated by: Jem Patterson MD 01/11/2021 13:22 Jem Patterson MD in [facility] 01/11/2021 13:22
== END ==
LOC: RAD 12:31
PROVIDERS: PCP Family Medicine; Visit Provider Orthopaedic Surgery
DX: Z96.641 Presence of right artificial hip joint (principal); M25.551 Pain in right hip
CPT/HCPCS: 73502

== ENCOUNTER → 2021-05-10 13:18 | Outpatient (CLI) | payer MEDICARE, SELFPAY ==
--- NOTE | 2021-05-10 13:22 | XR_ITS ---
PROCEDURE INFORMATION: Exam: XR Right Hip Exam date and time: 05/10/2021 1:22 PM Age: 76 years old Clinical indication: Condition or disease; Joint replacement status; Right; Prior surgery; Surgery date: 6+ months; Additional info: RT hip bipolar hemiarthroplasty TECHNIQUE: Imaging protocol: XR Right hip. Views: 2 or 3 views hip with pelvis when performed. COMPARISON: CR XR HIP RT 2-3V W/PELVIS 01/11/2021 12:49 PM FINDINGS: Bones/joints: Right bipolar hemiarthroplasty without evidence of complication.. There is no evidence of acute fracture.There is no evidence of malalignment or dislocation. Degenerative changes in the lumbar spine Soft tissues: Unremarkable. IMPRESSION: 1. Right bipolar hemiarthroplasty without evidence of complication.. 2. There is no evidence of acute fracture.There is no evidence of malalignment or dislocation.
== END ==
LOC: RAD 13:20
PROVIDERS: PCP Family Medicine; Visit Provider Orthopaedic Surgery
DX: Z96.641 Presence of right artificial hip joint (principal); M25.551 Pain in right hip
CPT/HCPCS: 73502

== ENCOUNTER → 2021-11-29 11:48 | Outpatient (CLI) | payer MEDICARE, SELFPAY ==
--- NOTE | 2021-11-29 11:57 | XR_ITS ---
FINAL REPORT CLINICAL HISTORY: sp rt hip sx on 10/16/2020 COMPARISON: May 10 and January 11, 2021 FINDINGS: 2 views of the right hip with an AP pelvis were obtained. There is no acute fracture or dislocation. There has been right hip arthroplasty. There are no soft tissue abnormalities. IMPRESSION: Stable right hip arthroplasty. Reviewed, Interpreted and Dictated by Lenin Barragan III, MD Transcribed by Kai Brown Authenticated by Lenin Barragan III, MD on 11/29/2021 01:49:09 PM [facility]
== END ==
LOC: RAD 11:50
PROVIDERS: PCP Family Medicine; Visit Provider Orthopaedic Surgery
DX: S72.001A Fracture of unspecified part of neck of right femur, initial encounter for closed fracture (principal)
CPT/HCPCS: 73502

== ENCOUNTER → 2022-05-09 09:13 | Outpatient (CLI) | payer MEDICARE, SELFPAY ==
--- NOTE | 2022-05-09 | CA_ITS ---
APPROVED REPORT EXAM: Comprehensive 2D, Doppler, and color-flow Echocardiogram Operations Technician: Leora Palomino RT(R) Ht: 5 ft 4 in Wt: 142lbs BSA: 1.69 BP: 196/86 mmHg Indications: murmur, HTN, ex smoker, hyperlipidemia 2D Dimensions LVOT 1.96 cm (M/F) 1.5-2.5 LA Volume 19.50 mL LA Volume Index 11.53 mL/m2 (M/F) 16-34 M-Mode Dimensions RVDd 2.24 cm (0.9-2.6) LA Diam 3.32 cm (1.9-4.0) LVDd 5.40 cm (3.5-5.7) Ao Diam 2.59 cm (2.0-3.7) LVDs 4.37 cm (3.5-5.7) IVSd 0.95 cm (0.6-1.1) PWd 1.14 cm (0.6-1.1) EF (Teich) 38.90% FS 19.10% EDV (Teich) 141.30 mL ESV (Teich) 86.30 mL LV Diastology E Decel Time 173.00 (160-240 msec) E/A Ratio 0.8 Aortic Valve LVOT Max 104.00 (70-110 cm/s) LVOT VTI 22.25 cm AoV Peak Talon. 201.00 (50-130 cm/s) AI PHT 611.00 ms AO Peak GR. 16.10 mmHg AO Mean GR. 7.90 (<5 mmHg) AO VTI 41.89 (18-25 cm) SHERIN (VTI) 1.60 (2.5-4.5 cm2) Mitral Valve MV E Max Talon. 83.00 (40-130 cm/s) MV A Velocity 105.00 (40-130 cm/s) E/A Ratio 0.79 MV Decel. Time 173.00 (160-240 ms) MV PHT 51.00 ms Left Ventricle Left atrium is mildly enlarged, left ventricle is normal size, mild concentric left ventricular hypertrophy, estimated ejection fraction 55% with no regional wall motion abnormality, Doppler evidence of impaired LV relaxation seen. Right Ventricle Right atrium and right ventricle are normal size and contractility. Aortic Valve Aortic valve is minimally thickened and fibrosed there is no aortic stenosis, there is mild aortic insufficiency. Mitral Valve Mitral valve is minimally thickened, there is mild mitral regurgitation. Tricuspid Valve Tricuspid valve is grossly normal, there is mild tricuspid regurgitation, tricuspid regurgitation jet velocity is inadequate for calculation of the right ventricular systolic pressure. Pulmonic Valve Pulmonic valve is poorly visualized. Great Vessels Aortic root is normal size. Inferior vena cava is poorly visualized. Pericardium No significant pericardial effusion noted. Conclusion 1. Mildly enlarged left atrium, normal left ventricular size, mild concentric left ventricular hypertrophy, estimated ejection fraction 55% with no regional wall motion abnormality, Doppler evidence of impaired LV relaxation seen. 2. Mild aortic, mitral and tricuspid regurgitation. 3. No significant pericardial effusion noted. 4. Inferior vena cava is poorly visualized. Electronically signed by : Quinn Baron MD 05/11/2022 15:29:55
== END ==
LOC: RT 09:13
PROVIDERS: PCP Family Medicine; Visit Provider Nurse Practitioner Family
DX: R01.1 Cardiac murmur, unspecified (principal)
CPT/HCPCS: 93306

== ENCOUNTER 2024-02-16 12:23 | Emergency (ER) | payer MEDICARE, SELFPAY ==
[2024-02-16] VITALS (9 sets, daily range): BP systolic 148–190; BP diastolic 85–101; PULSE 73–90; RESP 20; TEMP 36.8; O2SAT 89–99; BMI 25.7
--- NOTE | 2024-02-16 12:36 | HMH.EDGENADL ---
Discharge Plan Disposition Patient Disposition: Xfer Other Condition: Fair Chief Complaint: Fall Prescriptions Prescriptions: No Action metoprolol tartrate 100 mg tablet 100 mg PO omeprazole 40 MG capsule,delayed release(DR/EC) 40 mg PO DAILY simvastatin 20 MG tablet 20 mg PO HS diphenhydramine HCl 25 MG tablet 25 mg PO DAILY cholecalciferol (vitamin D3) 1,250 MCG capsule 50,000 unit PO WEEKLY carbidopa-levodopa 1 EACH tablet 1 each PO HS Referrals Follow up/Referrals: Jennifer Nava APRN [Primary Care Provider] - See instructions Clinical Impressions Clinical Impression: Closed fracture of left hip, Hypokalemia Print Language Print Language: Turkish Discharge ED Provider: Toby Richards General Adult HPI General Chief complaint: Fall Stated complaint: fall Time Seen by Provider: 02/16/24 12:36 Mode of Arrival: EMS Source of Information: Patient Limitations: No Limitations Description of Symptoms (Recalled from ER Triage Doc. by RN): pt to ed c/o fall. pt reports pain to the left hip. left leg visibly rotated. ems reports giving a total of 100mcg of fentanyl in route. History of Present Illness HPI narrative: 79-year-old female with past medical history significant for right hip replacement, HTN, HLD, RBBB, presents today for evaluation concerning left hip pain after falling off of her porch. She did hit her head but did not lose consciousness. She denies any neck pain, back pain, upper extremity pain, abdominal pain, chest pain, right lower extremity pain. She does report left femur pain. No other complaints at this time. Related Data Home Medications ?Medication ?Instructions ?Recorded ?Confirmed cholecalciferol (vitamin D3) 1,250 50,000 unit PO WEEKLY Supplement 10/16/20 11/29/21 mcg (50,000 unit) capsule diphenhydramine HCl 25 mg tablet 25 mg PO DAILY Allergy symptoms 10/16/20 11/29/21 omeprazole 40 mg capsule,delayed 40 mg PO DAILY GERD 10/16/20 11/29/21 release simvastatin 20 mg tablet 20 mg PO HS Cholesterol 10/16/20 11/29/21 carbidopa 25 mg-levodopa 100 mg 1 each PO HS Tremors 10/17/20 11/29/21 tablet metoprolol tartrate 100 mg tablet 100 mg PO 11/29/21 11/29/21 Allergies Allergy/AdvReac Type Severity Reaction Status Date / Time Penicillins Allergy Unknown Verified 11/29/21 13:04 allergy reaction Sulfa (Sulfonamide Allergy Unknown Verified 11/29/21 13:04 Antibiotics) allergy reaction oxycodone [From Percocet] AdvReac Mild Flushing Verified 11/29/21 13:04 [facility] Disclaimer: The information contained in this section may have been updated after the patient was seen, as this information can be updated by other users. Social History Smoking Status: Never smoker alcohol intake: never substance use type: denies use current occupational status: retired Travel in the last 8 weeks: None household members: spouse ROS Obtained: Yes All systems reviewed & no additional complaints except as documented Physical Exam General General appearance: alert and in no apparent distress Head Head exam: atraumatic and normocephalic Eye Eye exam: Present normal appearance, PERRL and EOMI ENT ENT exam: Present normal oropharynx and mucous membranes moist Neck Neck exam: Present full ROM; Absent meningismus Respiratory Respiratory exam: Absent respiratory distress, wheezes, stridor or accessory muscle use Cardiovascular Cardiovascular exam: Present normal rhythm Abdominal Exam Abdominal exam: Present soft; Absent distention, tenderness, guarding, rebound or rigidity Extremities Exam Extremities exam: Present normal inspection and tenderness (Tenderness palpation over the left hip and mid thigh. Left lower extremity is shortened and externally rotated.); Absent full ROM Neurological Exam Neurological exam: Present alert, oriented X3 and CN II-XII intact; Absent motor sensory deficit Psychiatric Psychiatric exam: Present normal affect and normal mood Skin Skin exam: Present warm and dry Medical Decision Making Medical Records Medical records reviewed: Yes I reviewed the patient's medical records. Steffen Inquiry Pt receiving controlled substance: No Steffen was queried for this patient: No Vital Signs: 02/16/24 12:26 02/16/24 12:30 02/16/24 12:30 Temperature 98.2 F Temperature Source Oral Pulse Rate 74 73 Pulse Rate [Left Radial] 76 Respiratory Rate 20 Blood Pressure 190/91 H 188/92 H Blood Pressure [Right Arm] 190/91 H Blood Pressure Mean [Right Arm] 124 02 Sat by Pulse Oximetry 89 L 93 L 94 L Oxygen Delivery Method Room Air Room Air Room Air Oxygen Flow Rate (LPM) 02/16/24 13:01 02/16/24 13:30 02/16/24 14:00 Temperature Temperature Source Pulse Rate 78 79 84 Pulse Rate [Left Radial] Respiratory Rate Blood Pressure 180/85 H 185/89 H 187/101 H Blood Pressure [Right Arm] Blood Pressure Mean [Right Arm] 02 Sat by Pulse Oximetry 96 97 97 Oxygen Delivery Method Room Air Room Air Room Air Oxygen Flow Rate (LPM) 02/16/24 14:31 02/16/24 15:00 Temperature Temperature Source Pulse Rate 81 78 Pulse Rate [Left Radial] Respiratory Rate Blood Pressure 171/88 H 160/89 H Blood Pressure [Right Arm] Blood Pressure Mean [Right Arm] 02 Sat by Pulse Oximetry 97 98 Oxygen Delivery Method Nasal Cannula Nasal Cannula Oxygen Flow Rate (LPM) 2 2 Lab Data Lab Results 02/16/24 12:26: WBC 9.4, RBC 4.44, Hgb 12.7, Hct 38.2, MCV 86.1, MCH 28.6, MCHC 33.3, RDW 14.1, Plt Count 214, MPV 9.2, Neut % (Auto) 75.0, Lymph % (Auto) 18.6, [place] % (Auto) 5.5, Eos % (Auto) 0.6, Baso % (Auto) 0.4, Neut # (Auto) 7.1, Lymph # (Auto) 1.8, [place] # (Auto) 0.5, Eos # (Auto) 0.1, Baso # (Auto) 0.0, PT 10.3, INR 0.91, Sodium 141, Potassium 2.8 L*, Chloride 108 H, Carbon Dioxide 25, Anion Gap 10.8, BUN 10, Creatinine 0.40 L, Estimated Creat Clear 48, Estimated GFR 154, Est GFR ( Amer) 186, Glucose 105 H, Calcium 8.2 L, Magnesium 1.9, Total Bilirubin 0.5, AST 40 H, ALT 28, Alkaline Phosphatase 71, Total Protein 6.8, Albumin 4.0, Globulin 2.8, Albumin/Globulin Ratio 1.4 02/16/24 14:04: Urine Color Yellow, Urine Appearance Clear, Urine pH 7.0, Ur Specific [place] 1.015, Urine Protein Negative, Urine Glucose (UA) Negative, Urine Ketones Trace, Urine Blood Negative, Urine Nitrate Negative, Urine Bilirubin Negative, Urine Urobilinogen 1.0, Ur Leukocyte Esterase Negative, Urine RBC Occasional, Urine WBC 5-10, Ur Squamous Epith Cells Occasional, Urine Bacteria 4+ 02/16/24 12:26 02/16/24 12:26 Orders (Tests/Meds): ED MEDICATIONS Discontinued Medications Generic Name Dose Route Start Last Admin Trade Name Gaby PRN Reason Stop Dose Admin Methocarbamol 750 mg 02/16/24 13:48 02/16/24 13:53 Methocarbamol 500mg Tablet PO 02/16/24 13:49 750 mg ONCE ONE Administration Morphine Sulfate 2 mg 02/16/24 12:44 02/16/24 12:50 Morphine 2mg/Ml Syringe IV 02/16/24 12:45 2 mg ONCE ONE Administration Morphine Sulfate 4 mg 02/16/24 13:33 02/16/24 13:46 Morphine 4mg/Ml Syringe IV 02/16/24 13:34 4 mg ONCE ONE Administration Ondansetron HCl 4 mg 02/16/24 12:44 02/16/24 14:12 Ondansetron 4mg/2ml Vial IV 02/16/24 12:45 4 mg ONCE ONE Administration Potassium Chloride 40 meq 02/16/24 14:21 02/16/24 14:54 Potassium Chloride 20meq Tab PO 02/16/24 14:22 Not Given ONCE ONE Potassium Chloride 40 meq 02/16/24 14:53 02/16/24 15:00 Potassium Chloride 20meq/15ml Udc PO 02/16/24 14:54 40 meq ONCE ONE Administration ORDERS Category Date Time Status CT cervical spine wo con Stat Cat Scan 02/16/24 12:[address] head/brain wo con Stat Cat Scan 02/16/24 12:44 Completed Femur XR left 2 views [XR femur LT 2V] Stat Exams 02/16/24 12:44 Completed Hip XR left minimum 2 views [XR hip LT 2-3V w/pelvis] Exams 02/16/24 12:44 Completed Stat Knee XR left 2 views [XR knee LT 2V] Stat Exams 02/16/24 12:44 Completed Complete Blood Count Auto Diff Stat Lab 02/16/24 12:26 Completed Comprehensive Metabolic Panel Stat Lab 02/16/24 12:26 Completed Magnesium Stat Lab 02/16/24 12:26 Completed PT/INR [Prothrombin Time INR] Stat Lab 02/16/24 12:26 Completed Urinalysis and Microscopic Stat Lab 02/16/24 14:04 Completed Urine Culture Stat Micro 02/16/24 14:04 Received Medical Decision Narrative: 79-year-old female with past medical history significant for right hip replacement, HTN, HLD, RBBB, presents today for evaluation concerning left hip pain after falling off of her porch. She did hit her head but did not lose consciousness. She denies any neck pain, back pain, upper extremity pain, abdominal pain, chest pain, right lower extremity pain. She does report left femur pain. On assessment she was hemodynamically stable and in no acute distress. Alert and oriented to person place time and situation. No midline palpation of the C/T/L-spine. No external signs of trauma on the head. No chest wall or abdominal tenderness. She did have left hip and left femur tenderness to palpation. The left lower extremity was shortened and externally rotated. Palpable DP pulses. Differential diagnoses include not limited to femur fracture, pelvic fracture, intracranial abnormality, among others. CT head and CT C-spine were ordered and did not show any acute abnormalities. I also ordered for x-ray imaging of the left hip, left femur and left knee and on my informal interpretation patient has a femoral neck fracture. Radiology report notes displaced and angulated subcapital fracture of the left hip. On reassessment the patient remains hemodynamically stable and in no acute distress. Provided with more pain medication to further assist. I discussed ED workup and results as well as current plan to admit with orthopedics consult for operative management. She was agreeable to plan. Orthopedic surgery is not available here and so I did consult with orthopedics at [place], Dr. Sanchez, and discussed management and he has agreed to evaluate patient upon arrival for operative management. Also spoke with hospital medicine at [place], Dr. Fernández, who has accepted admission. Patient beti hemodynamically stable in no acute distress at this time. Critical Care Critical Care Time Critical Care Time: No
--- NOTE | 2024-02-16 12:37 | PC.NURSE ---
Dr. Richards at [facility] for pt eval
--- NOTE | 2024-02-16 12:44 | XR_ITS ---
PROCEDURE INFORMATION: Exam: XR Left Femur Exam date and time: 02/16/2024 1:02 PM Age: 79 years old Clinical indication: Injury or trauma; Fall; Blunt trauma; Hip; Left; Additional info: Pain TECHNIQUE: Imaging protocol: Radiologic exam of the left femur. Views: 2 views. COMPARISON: CR XR FEMUR LT 2V 02/16/2024 1:02 PM FINDINGS: Bones/joints: Distal femur intact. Osteoarthritic changes of the knee. Soft tissues: Unremarkable. IMPRESSION: No acute findings.
--- NOTE | 2024-02-16 12:44 | CT_ITS ---
PROCEDURE INFORMATION: Exam: CT Cervical Spine Without Contrast Exam date and time: 02/16/2024 1:26 PM Age: 79 years old Clinical indication: Injury or trauma; Fall; Blunt trauma TECHNIQUE: Imaging protocol: Computed tomography of the cervical spine without contrast. Radiation optimization: All CT scans at this facility use at least one of these dose optimization techniques: automated exposure control; mA and/or kV adjustment per patient size (includes targeted exams where dose is matched to clinical indication); or iterative reconstruction. COMPARISON: CT HEAD/BRAIN WO CON 02/16/2024 1:26 PM FINDINGS: Bones: No acute fracture. Normal alignment. No significant disc bulge or herniation. Mild disc space narrowing throughout the cervical spine, moderate at C6-C7. No severe spinal canal stenosis. Multilevel facet arthropathy with associated foraminal stenosis. Lungs: Lung apices are normal. Soft tissues: Heterogeneous and enlarged left thyroid lobe. Consider nonemergent ultrasound. Right thyroidectomy. IMPRESSION: No acute findings.
--- NOTE | 2024-02-16 12:44 | CT_ITS ---
PROCEDURE INFORMATION: Exam: CT Head Without Contrast Exam date and time: 02/16/2024 1:26 PM Age: 79 years old Clinical indication: Injury or trauma; Fall; Blunt trauma (contusions or hematomas) TECHNIQUE: Imaging protocol: Computed tomography of the head without contrast. Radiation optimization: All CT scans at this facility use at least one of these dose optimization techniques: automated exposure control; mA and/or kV adjustment per patient size (includes targeted exams where dose is matched to clinical indication); or iterative reconstruction. COMPARISON: CT CERVICAL SPINE WO CON 02/16/2024 1:26 PM FINDINGS: Brain: Central and cortical brain atrophy evident, appropriate for patient age. There is nonspecific periventricular low attenuation, likely microangiopathic disease. No acute intracranial hemorrhage. Remote lacunar infarction right caudate head. Cerebral ventricles: No ventriculomegaly. Paranasal sinuses: Visualized sinuses are unremarkable. No fluid levels. Mastoid air cells: Visualized mastoid air cells are well aerated. Bones: Unremarkable. No acute fracture. Soft tissues: Unremarkable. IMPRESSION: No acute intracranial abnormality.
--- NOTE | 2024-02-16 12:44 | XR_ITS ---
PROCEDURE INFORMATION: Exam: XR Left Hip Exam date and time: 02/16/2024 1:02 PM Age: 79 years old Clinical indication: Injury or trauma; Fall; Blunt trauma (contusions or hematomas); Left; Hip; Additional info: L hip pain TECHNIQUE: Imaging protocol: Radiologic exam of the left hip. Views: 2 or 3 views hip with pelvis when performed. COMPARISON: CR XR FEMUR LT 2V 02/16/2024 1:02 PM FINDINGS: Bones/joints: Displaced and angulated subcapital fracture left hip. No femoral head dislocation. Right total hip prosthesis. Soft tissues: Unremarkable. IMPRESSION: Displaced and angulated subcapital fracture left hip.
--- NOTE | 2024-02-16 12:44 | XR_ITS ---
PROCEDURE INFORMATION: Exam: XR Left Knee Exam date and time: 02/16/2024 1:02 PM Age: 79 years old Clinical indication: Injury or trauma; Fall; Blunt trauma; Hip; Left TECHNIQUE: Imaging protocol: Radiologic exam of the left knee. Views: 1 or 2 views. COMPARISON: CR XR FEMUR LT 2V 02/16/2024 1:02 PM FINDINGS: Bones/joints: No acute fracture or dislocation. Moderate tricompartmental joint space narrowing. Suprapatellar soft tissue swelling. Soft tissues: See Bones/joints finding. IMPRESSION: Suprapatellar soft tissue swelling.
[2024-02-16] MEDS: MORPHINE 2MG/ML SYRINGE 2 MG IV (12:50)
--- NOTE | 2024-02-16 13:20 | PC.NURSE ---
message left for Dr. Yepez. Waiting production support consultant back.
--- NOTE | 2024-02-16 13:28 | PC.NURSE ---
PT returned to room from RAD
[2024-02-16 13:37] LABS: Basophils % 0.4 % (0.1-2.0); Eosinophils # 0.1 K/mm3 (0.0-0.4); Eosinophils % 0.6 % (0.1-12.0); Hematocrit 38.2 % (37.0-47.0); Hemoglobin 12.7 g/dL (12.2-16.2); Lymphocytes # 1.8 K/mm3 (0.7-4.5); Lymphocytes % 18.6 % (10-50); Mean Corpuscular HGB Conc 33.3 g/dL (31.8-35.4); Mean Corpuscular Hemoglobin 28.6 pg (27.0-31.2); Mean Corpuscular Volume 86.1 fl (81-99); Mean Platelet Volume 9.2 fl (7.4-10.4); Monocytes # 0.5 K/mm3 (0.1-1.0); Monocytes % 5.5 % (1.7-9.3); Neutrophils # 7.1 K/mm3 (1.8-7.8); Platelet Count 214 K/mm3 (142-424); Red Blood Count 4.44 M/mm3 (4.20-5.40); Red Cell Distribution Width 14.1 % (11.5-17.5); White Blood Count 9.4 K/mm3 (4.8-10.8)
--- NOTE | 2024-02-16 13:40 | PC.NURSE ---
calling for [facility] transfer
--- NOTE | 2024-02-16 13:41 | ECG_ITS ---
APPROVED REPORT Exam: Resting ECG HR:75 bpm ECG Measurements Heart Rate 75 AXES WI 190 P 55 QRSd 130 QRS -31 QT 425 T 35 QTc 455 Conclusion SINUS RHYTHM LEFT AXIS DEVIATION [QRS AXIS < -30] RIGHT BUNDLE BRANCH BLOCK [120+ ms QRS DURATION, UPRIGHT V1, 40+ ms S IN I/aVL/V4/V5/V6] ABNORMAL ECG Electronically signed by : EVELYN WILL, 02/16/2024 16:19:25
[2024-02-16 13:42] LABS: INR 0.91 (0.9-1.1); Prothrombin Time 10.3 seconds (10.1-12.5)
[2024-02-16 13:43] LABS: Chloride 108 mmol/L (98-107); Sodium 141 mmol/L (136-145)
[2024-02-16 13:45] LABS: Blood Urea Nitrogen 10 mg/dl (7-17); Creatinine Clearance Estimated 48 mL/min (50-200); Estimated Glomerular Filt Rate 154 ml/min (>60); GFR (African American) 186 ML/MIN (>60)
[2024-02-16 13:46] LABS: Alanine Aminotransferase 28 U/L (12-78); Albumin/Globulin Ratio 1.4 (1.1-1.8); Alkaline Phosphatase 71 U/L (38-126); Anion Gap 10.8 mEq/L (5-15); Aspartate Amino Transferase 40 U/L (14-36); Bilirubin,Total 0.5 mg/dl (0.2-1.3); Calcium 8.2 mg/dl (8.4-10.2); Carbon Dioxide 25 mmol/L (22.0-30.0); Globulin 2.8 g/dL (1.3-3.2); Glucose 105 mg/dl (74-100); Total Protein,Serum 6.8 g/dl (6.3-8.2)
[2024-02-16] MEDS: MORPHINE 4MG/ML SYRINGE 4 MG IV (13:46)
[2024-02-16 13:53] LABS: Potassium 2.8 mmoL/L (3.5-5.1)
[2024-02-16] MEDS: METHOCARBAMOL 500MG TABLET 750 MG PO (13:53)
--- NOTE | 2024-02-16 13:53 | PC.NURSE ---
aware of potassium of 2.8
[2024-02-16 14:06] LABS: Magnesium 1.9 mg/dl (1.6-2.3)
[2024-02-16 14:09] LABS: Microscopic, Urine URINE MICROSCOPIC (MICROSCOPIC)
[2024-02-16] MEDS: ONDANSETRON 4MG/2ML VIAL 4 MG IV (14:12)
[2024-02-16 14:13] LABS: Appearance,Urine CLEAR (Clear); Bilirubin,Urine Negative (Negative); Blood, Urine Negative (Negative); Color,Urine YELLOW (Yellow); Glucose,Urine (UA) Negative (Negative); Ketones,Urine TRACE (Negative); Leukocyte Esterase,Urine Negative (Negative); Nitrate,Urine Negative (Negative); Protein,Urine Negative (Negative); Specific Gravity, Urine 1.015 (1.005-1.030)
[2024-02-16 14:39] LABS: Bacteria,Urine 4+ /lpf; RBC,Urine Occasional #/hpf (0-3); Squamous Epithelial Cell,Urine Occasional #/hpf (0-5)
--- NOTE | 2024-02-16 14:58 | PC.NURSE ---
calling [facility] for transfer for ortho
[2024-02-16] MEDS: POTASSIUM CHLORIDE 20MEQ/15ML UDC 40 MEQ PO (15:00)
--- NOTE | 2024-02-16 15:00 | PC.NURSE ---
st states has no bed at this time
--- NOTE | 2024-02-16 15:03 | PC.NURSE ---
called [facility] transfer states it will be awhile they have several calls ahead
--- NOTE | 2024-02-16 15:06 | PC.NURSE ---
called for a update on speaking with md about transfer they states that it will be a bit before they could call back no eta
--- NOTE | 2024-02-16 15:11 | PC.NURSE ---
[facility] FOR [facility] TRANSFER FOR ORTHO THEY ARE PUTTING A PAGE OUT TO [facility] AND WILL CALL BACK
--- NOTE | 2024-02-16 15:13 | PC.NURSE ---
Dr. Richards speaking with Dr. Leach, ortho at [facility]
--- NOTE | 2024-02-16 15:14 | PC.NURSE ---
Dr. Leach accepted pt for ortho. Waiting conductor/engineer back from hospitalist.
--- NOTE | 2024-02-16 15:25 | PC.NURSE ---
Dr. Richards speaking with Dr. Johns, hospitalist at [facility]
--- NOTE | 2024-02-16 15:27 | PC.NURSE ---
pt accepted to [facility] by Dr. Fernández
--- NOTE | 2024-02-16 15:35 | PC.NURSE ---
PT IS GO[facility] TO [facility] @ [facility]
--- NOTE | 2024-02-16 15:37 | PC.NURSE ---
UPDATED PT FAMILY ABOUT ACCEPTANCE AT [facility]
--- NOTE | 2024-02-16 15:40 | PC.NURSE ---
CALLED EMS AND NOTIFIED THEM OF TRANSFER TO [facility]
--- NOTE | 2024-02-16 15:43 | PC.NURSE ---
report called to receiving RN at [facility]
--- NOTE | 2024-02-16 16:22 | PC.NURSE ---
EMPTIED [facility] OUT OF PT [facility]
--- NOTE | 2024-02-18 17:34 | PC.NURSE ---
URINE CULTURE FAXED TO [facility]
== END 2024-02-16 16:21 | disposition other institution (70) ==
PROVIDERS: Emergency Provider Emergency Medicine; PCP Nurse Practitioner Family
DX: S72.012A Unspecified intracapsular fracture of left femur, initial encounter for closed fracture (principal); E87.6 Hypokalemia; B96.29 Other Escherichia coli [E. coli] as the cause of diseases classified elsewhere; M25.552 Pain in left hip; I10 Essential (primary) hypertension; E78.5 Hyperlipidemia, unspecified; I45.10 Unspecified right bundle-branch block; Z96.641 Presence of right artificial hip joint; W19.XXXA Unspecified fall, initial encounter
CPT/HCPCS: 51702; 70450; 72125; 73502; 73552; 73560; 80053; 81001; 83735; 85025; 85610; 87086; 87088; 87186; 93005; 96374; 96375; 96376; 99285; J2270; J2405

== ENCOUNTER 2024-08-04 07:45 | Emergency (ER) | payer MEDICARE, SELFPAY ==
[2024-08-04 07:55] VITALS: BP 170/79; PULSE 80; RESP 18; TEMP 37.2; O2SAT 93; BMI 25.7
[2024-08-04 08:00] VITALS: BP 154/68; PULSE 78; O2SAT 95
--- NOTE | 2024-08-04 08:11 | CT_ITS ---
FINAL REPORT TECHNIQUE: Axial CT images were performed through the head. Coronal reformatted images were submitted. This study was performed with techniques to keep radiation doses as low as reasonably achievable (ALARA). Individualized dose reduction techniques using automated exposure control or adjustment of mA and/or kV according to the patient's size were employed. CLINICAL HISTORY: fall >65, low back pain rad down L leg COMPARISON: 02/16/2024 FINDINGS: There is mild atrophy. There is an old lacunar infarct in the anterior limb of the right internal capsule, stable. There is physiologic calcification of the basal ganglia. The ventricles are normal in size. There is no evidence of hemorrhage. There is no mass or edema identified. There is no abnormal extra-axial fluid seen. The sinuses are well aerated. IMPRESSION: No acute intracranial process. Atrophy and chronic appearing findings. Reviewed, Interpreted and Dictated by Jorge Marquez MD Transcribed by Marisa Hirsch Authenticated and [facility]
--- NOTE | 2024-08-04 08:11 | XR_ITS ---
FINAL REPORT CLINICAL HISTORY: fall >65, low back pain rad down L leg COMPARISON: 11/29/2021 FINDINGS: LEFT HIP: Two views of the left hip demonstrate no acute fracture or dislocation. In the interval since the prior exam a left hip arthroplasty has been performed. The arthroplasty hardware is unremarkable in appearance. Osteopenia is noted. The visualized bony structures are well aligned. No soft tissue abnormality is seen. IMPRESSION: Interval left hip arthroplasty since the prior exam of 2021. No acute bony abnormality identified. Reviewed, Interpreted and Dictated by Jorge Marquez MD Transcribed by Anna Chang Authenticated and [facility]
--- NOTE | 2024-08-04 08:11 | CT_ITS ---
FINAL REPORT TECHNIQUE: Axial images were obtained of the lumbar spine by computed tomography. Coronal and sagittal reconstruction process performed. This study was performed with techniques to keep radiation doses as low as reasonably achievable (ALARA). Individualized dose reduction techniques using automated exposure control or adjustment of mA and/or kV according to the patient''s size were employed. CLINICAL HISTORY: fall >65, low back pain rad down L leg COMPARISON: None FINDINGS: There is 20 degrees of lumbar scoliosis convex to the left. Advanced disc space narrowing is noted at L2-3, L3-4, and L4-5. The vertebrae are normal in height. On the parasagittal images, there is significant neuroforaminal narrowing bilaterally at L2-3, L3-4, L4-5, and L5-S1. There is no evidence of acute fracture. IMPRESSION: Scoliosis and diffuse changes of degenerative disc disease without acute bony abnormality. Reviewed, Interpreted and Dictated by Jorge Marquez MD Transcribed by Bettye Mcdonald Authenticated and [facility]
--- NOTE | 2024-08-04 08:11 | CT_ITS ---
FINAL REPORT CLINICAL HISTORY: fall >64, low back pain rad down L leg COMPARISON: None FINDINGS: Axial images through the pelvis were performed by computed tomography. Sagittal and coronal reconstruction images were performed. This study was performed with techniques to keep radiation doses as low as reasonably achievable (ALARA). Individualized dose reduction techniques using automated exposure control or adjustment of mA and/or kV according to the patient's size were employed. Bilateral hip arthroplasties have been performed. The hardware implants produce streak artifact somewhat limiting overall image quality. No fracture is identified. No dislocation identified. Advanced degenerative changes are present in the lower lumbar spine. No soft tissue abnormality. IMPRESSION: No acute bony abnormality identified. Bilateral hip arthroplasties, with streak artifact somewhat limiting overall image quality. Reviewed, Interpreted and Dictated by Jorge Marquez MD Transcribed by Anna Chang Authenticated and [facility]
--- NOTE | 2024-08-04 08:11 | CT_ITS ---
FINAL REPORT TECHNIQUE: Axial images were obtained of the thoracic spine by computed tomography. Coronal and sagittal reconstruction process performed. This study was performed with techniques to keep radiation doses as low as reasonably achievable (ALARA). Individualized dose reduction techniques using automated exposure control or adjustment of mA and/or kV according to the patient's size were employed. CLINICAL HISTORY: fall >64, low back pain rad down L leg COMPARISON: None FINDINGS: There is mild thoracic scoliosis convex to the right measuring about 15 degrees. The vertebrae are normal in height. There is no malalignment. Mild to moderate anterior osteophyte formation is noted in the mid and lower thoracic spine. There is no evidence of acute bony abnormality. IMPRESSION: No acute bony abnormality. Reviewed, Interpreted and Dictated by Jorge Marquez MD Transcribed by Bettye Mcdonald Authenticated and [facility]
--- NOTE | 2024-08-04 08:11 | CT_ITS ---
FINAL REPORT TECHNIQUE: Axial images were obtained of the cervical spine by computed tomography. Coronal and sagittal reconstruction process performed. This study was performed with techniques to keep radiation doses as low as reasonably achievable (ALARA). Individualized dose reduction techniques using automated exposure control or adjustment of mA and/or kV according to the patient''s size were employed. CLINICAL HISTORY: fall >64, low back pain rad down L leg COMPARISON: 02/16/2024 FINDINGS: There is advanced to space narrowing C5-6 and C6-7. Minimal spondylolisthesis is noted of C5 on C6. There is prominent endplate hypertrophy. Moderate bilateral neuroforaminal narrowing is noted on the left at C3-4 and C4-5. At C5-6 and C6-7 endplate hypertrophy results in moderate bilateral neuroforaminal narrowing at C6-7 and mild to moderate bilaterally at C6-7. There is no evidence of fracture. Moderate facet hypertrophy is noted. IMPRESSION: Hypertrophic changes of degenerative disc disease most evident at C5-6 and C6-7 without evidence of acute fracture. Reviewed, Interpreted and Dictated by Jorge Marquez MD Transcribed by Bettye Mcdonald Authenticated and [facility]
--- NOTE | 2024-08-04 08:11 | XR_ITS ---
FINAL REPORT TECHNIQUE: 4 views left femur CLINICAL HISTORY: fall >64, low back pain rad down L leg COMPARISON: None FINDINGS: LEFT FEMUR: A total hip arthroplasty has been performed on the left side. The hardware is unremarkable in appearance. The femur itself does not reveal any evidence of acute fracture or dislocation. IMPRESSION: No acute bony abnormality of the left femur identified. Reviewed, Interpreted and Dictated by Jorge Marquez MD Transcribed by Anna Chang Authenticated and [facility]
[2024-08-04 08:35] VITALS: BP 154/68; PULSE 82; O2SAT 98
--- NOTE | 2024-08-04 08:36 | HMH.EDGENADL ---
Discharge Plan Disposition Patient Disposition: Home, Self-Care Condition: Good Prescriptions Prescriptions: New naproxen 500 mg tablet 500 mg PO BID Qty: 20 0RF methocarbamol 750 mg tablet 750 mg PO Q8H PRN (Reason: pain) Qty: 20 0RF No Action metoprolol tartrate 100 mg tablet 100 mg PO omeprazole 40 MG capsule,delayed release(DR/EC) 40 mg PO DAILY simvastatin 20 MG tablet 20 mg PO HS diphenhydramine HCl 25 MG tablet 25 mg PO DAILY cholecalciferol (vitamin D3) 1,250 MCG capsule 50,000 unit PO WEEKLY carbidopa-levodopa 1 EACH tablet 1 each PO HS Referrals Follow up/Referrals: Jennifer Nava APRN [Primary Care Provider] - See instructions Activity Restrictions/Add. Instructions Additional Instructions/Restrictions: You were evaluated in the emergency department today. Please follow-up closely with your primary care provider for reassessment. 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 You may also take Tylenol every 4-6 hours as needed. Return to the emergency department for new or worsening symptoms. Clinical Impressions Clinical Impression: Fall, Hypokalemia, Back pain, Acute lumbar radiculopathy Instructions Patient Instructions: DI for Low Back Pain, DI for Hypokalemia, DI for Back Pain With Sciatica Print Language Print Language: Greenlandic Discharge ED Provider: Halina Rg General Adult HPI General Chief complaint: Back Pain/Injury Stated complaint: AO 07/30 lower back pain down left leg Time Seen by Provider: 08/04/24 07:48 Mode of Arrival: Wheelchair Source of Information: Patient Limitations: No Limitations Description of Symptoms (Recalled from ER Triage Doc. by RN): pt fell to knee last week. c/o pain in lower back down the left leg. Hx of fx left hip with surgery in FEB. History of Present Illness HPI narrative: This patient is an 79-year-old female who has a history of prior left hip fracture status post left hip replacement presenting to the emergency department for evaluation with concern for low back pain radiating down her right leg after a mechanical ground-level fall that happened on 07/30/2023. She states that she tripped and fell forward, landing on her knees but never actually falling completely to the ground. She did not hit her head or lose consciousness. She states that since then, she has had low back pain mostly at her tailbone radiating down her left leg. No numbness, tingling, saddle anesthesia, incontinence, retention, or other concerns. She was well prior to the fall. She denies any other pain, such as abdominal pain, and she also has had no vomiting, changes in bowel movements, or urinary symptoms. Related Data Home Medications ?Medication ?Instructions ?Recorded ?Confirmed cholecalciferol (vitamin D3) 1,250 50,000 unit PO WEEKLY Supplement 10/16/20 11/29/21 mcg (50,000 unit) capsule diphenhydramine HCl 25 mg tablet 25 mg PO DAILY Allergy symptoms 10/16/20 11/29/21 omeprazole 40 mg capsule,delayed 40 mg PO DAILY GERD 10/16/20 11/29/21 release simvastatin 20 mg tablet 20 mg PO HS Cholesterol 10/16/20 11/29/21 carbidopa 25 mg-levodopa 100 mg 1 each PO HS Tremors 10/17/20 11/29/21 tablet metoprolol tartrate 100 mg tablet 100 mg PO 11/29/21 11/29/21 Previous Rx's ?Medication ?Instructions ?Recorded methocarbamol 750 mg tablet 750 mg PO Q8H PRN pain #20 tabs 08/04/24 naproxen 500 mg tablet 500 mg PO BID #20 tabs 08/04/24 Allergies Allergy/AdvReac Type Severity Reaction Status Date / Time Penicillins Allergy Unknown Verified 11/29/21 13:04 allergy reaction Sulfa (Sulfonamide Allergy Unknown Verified 11/29/21 13:04 Antibiotics) allergy reaction oxycodone (From Percocet) AdvReac Mild Flushing Verified 11/29/21 13:04 PFSH [facility] Disclaimer: The information contained in this section may have been updated after the patient was seen, as this information can be updated by other users. Social History Smoking Status: Never smoker alcohol intake: never substance use type: denies use current occupational status: retired Travel in the last 8 weeks: None household members: spouse Have you lived/traveled outside [place] in past 30 days?: No Contact w/someone who lives/traveled outside [place] past 30 days?: No Exposure to someone with infectious disease in past 14 days?: No Do you have a fever (greater than 100.4 F or 38 C)?: No Have you tested positive for COVID-19: No Exposed to someone with COVID-19 in past 14 days?: No Do you have a sore throat?: No Do you have a cough?: No Do you have any weakness?: No Do you have any diarrhea?: No Are you experiencing any unusual bleeding?: No Do you have any muscle aches/pain?: No Do you have any abdominal pain?: No Are you experiencing loss of taste or smell?: No Other Medical History Have you received the Flu Vaccine for this season: No Have you received the Pneumonia Vaccine: No ROS Obtained: Yes All systems reviewed & no additional complaints except as documented Physical Exam General General appearance: alert and in no apparent distress Head Head exam: atraumatic and normocephalic Eye Eye exam: Present normal appearance, PERRL and EOMI ENT ENT exam: Present normal exam, normal oropharynx, mucous membranes moist and normal external ear exam Neck Neck exam: Present normal inspection, full ROM and trachea midline; Absent tenderness Chest Chest inspection: Present normal inspection and symmetric chest wall rise; Absent tenderness Respiratory Respiratory exam: Present normal lung sounds bilaterally; Absent respiratory distress, wheezes, stridor or accessory muscle use Cardiovascular Cardiovascular exam: Present regular rate and normal rhythm Abdominal Exam Abdominal exam: Present soft; Absent distention, tenderness or guarding Extremities Exam Extremities exam: Present normal inspection, full ROM and normal capillary refill; Absent tenderness or edema Back Exam Back exam: Present full ROM and tenderness (Lumbosacral region) Neurological Exam Neurological exam: Present alert, oriented X3, CN II-XII intact and normal gait; Absent motor sensory deficit Psychiatric Psychiatric exam: Present normal affect and normal mood Skin Skin exam: Present warm and dry Medical Decision Making Medical Records Medical records reviewed: Yes I reviewed the patient's medical records. Screening: Per USPSTF and CDC recommendations, given the prevalence of disease in our region, it is our hospital?s policy to screen for HIV and viral Hepatitis for all patients aged 18 and over and those with ongoing risk factors. Steffen Inquiry Pt receiving controlled substance: No Vital Signs: 08/04/24 07:55 08/04/24 08:00 08/04/24 08:35 Temperature 99.0 F Temperature Source Temporal Artery Scan Pulse Rate 78 82 Pulse Rate [Right Radial] 80 Respiratory Rate 18 Blood Pressure 154/68 H 154/68 H Blood Pressure [Right Arm] 170/79 H Blood Pressure Mean [Right Arm] 109 02 Sat by Pulse Oximetry 93 L 95 98 Oxygen Delivery Method Room Air 08/04/24 11:07 Temperature 98.6 F Temperature Source Oral Pulse Rate 82 Pulse Rate [Right Radial] Respiratory Rate 18 Blood Pressure 154/68 H Blood Pressure [Right Arm] Blood Pressure Mean [Right Arm] 02 Sat by Pulse Oximetry Oxygen Delivery Method Room Air Lab Data Lab results reviewed: Yes I reviewed the patient's lab results. Lab Results 08/04/24 08:30: Urine Color Yellow, Urine Appearance Clear, Urine pH 5.5, Ur Specific [place] <= 1.005, Urine Protein Negative, Urine Glucose (UA) Negative, Urine Ketones Trace, Urine Blood Negative, Urine Nitrate Negative, Urine Bilirubin Negative, Urine Urobilinogen 0.2, Ur Leukocyte Esterase Negative, Urine RBC None, Urine WBC None, Ur Squamous Epith Cells Occasional, Urine Bacteria Trace 08/04/24 09:42: WBC 7.4, RBC 4.38, Hgb 11.7 L, Hct 35.4 L, MCV 80.8 L, MCH 26.7 L, MCHC 33.1, RDW 13.2, Plt Count 255, MPV 11.4 H, Neut % (Auto) 70.1, Lymph % (Auto) 20.8, [place] % (Auto) 6.9, Eos % (Auto) 1.4, Baso % (Auto) 0.5, Neut # (Auto) 5.2, Lymph # (Auto) 1.5, [place] # (Auto) 0.5, Eos # (Auto) 0.1, Baso # (Auto) 0.0, Sodium 141, Potassium 3.2 L, Chloride 102, Carbon Dioxide 28, Anion Gap 14.2, BUN 8, Creatinine 0.40 L, Estimated Creat Clear 45, Estimated GFR 154, Est GFR ( Amer) 186, Glucose 110 H, Calcium 9.1, Total Bilirubin 1.0, AST 34, ALT 18, Alkaline Phosphatase 128 H, Total Protein 6.9, Albumin 4.3, Globulin 2.6, Albumin/Globulin Ratio 1.7 08/04/24 09:42 08/04/24 09:42 Orders (Tests/Meds): ED MEDICATIONS Discontinued Medications Generic Name Dose Route Start Last Admin Trade Name Freq PRN Reason Stop Dose Admin Acetaminophen 1,000 mg 08/04/24 08:12 08/04/24 08:39 Acetaminophen 500mg Tab PO 08/04/24 08:13 1,000 mg ONCE ONE Administration Gabapentin 300 mg 08/04/24 08:12 08/04/24 08:39 Gabapentin 300mg Capsule PO 08/04/24 08:13 300 mg ONCE ONE Administration Ketorolac Tromethamine 30 mg 08/04/24 08:12 08/04/24 08:40 Ketorolac 30mg/Ml Vial IM 08/04/24 08:13 30 mg ONCE ONE Administration Lidocaine 1 each 08/04/24 08:12 08/04/24 08:40 Lidocaine 5% Transdermal Patch TP 08/04/24 08:13 1 each ONCE ONE Administration Methocarbamol 500 mg 08/04/24 08:13 08/04/24 08:39 Methocarbamol 500mg Tablet PO 08/04/24 08:14 500 mg ONCE ONE Administration Ondansetron HCl 4 mg 08/04/24 08:12 08/04/24 08:39 Ondansetron 4mg Odt SL 08/04/24 08:13 4 mg ONCE ONE Administration Potassium Chloride 60 meq 08/04/24 10:29 08/04/24 10:40 Potassium Chloride 20meq Tab PO 08/04/24 10:30 60 meq ONCE ONE Administration ORDERS Category Date Time Status CT abdomen pelvis wo con Stat Cat Scan 08/04/24 08:[address] bony pelvis Stat Cat Scan 08/04/24 08:[address] cervical spine wo con Stat Cat Scan 08/04/24 08:[address] head/brain wo con Stat Cat Scan 08/04/24 08:[address] lumbar spine wo con Stat Cat Scan 08/04/24 08:[address] thoracic spine wo con Stat Cat Scan 08/04/24 08:11 Completed Femur XR left 2 views [XR femur LT 2V] Stat Exams 08/04/24 08:11 Completed Hip XR left minimum 2 views [XR hip LT 2-3V w/pelvis] Exams 08/04/24 08:11 Completed Stat CBC w/Auto Diff [Complete Blood Count Auto Diff] Stat Lab 08/04/24 09:42 Completed CMP [Comprehensive Metabolic Panel] Stat Lab 08/04/24 09:42 Completed UA [Urinalysis and Microscopic] Stat Lab 08/04/24 08:30 Completed Medical Decision Narrative: In summary, this patient is a 79-year-old female presenting to the Emergency Department for evaluation of back pain radiating down the left leg after a mechanical ground-level fall last week. Differential diagnoses considered include but are not limited to fracture, contusion, strain/sprain, disc herniation, polytrauma, spinal injury, lumbar radiculopathy. Ruling out the most morbid conditions drove assessment. It should be noted patient's history includes hypertension, hyperlipidemia which are reportedly at goal therapy. This complicates all aspects of care by increasing patient's risk for morbidity. I reviewed patient's past medical records and noted previous evaluation 02/16/24 for a closed fracture of the left hip. On exam, the patient is sitting in a wheelchair, uncomfortable appearing. She is neurologically intact with no alarm findings consistent with cauda equina syndrome or spinal cord compression. Her exam is otherwise normal with the exception of some lumbosacral tenderness to palpation. Abdominal exam is completely benign. Workup included CT head, CT spines, and CT bony pelvis as well as x-ray of the left hip/pelvis, left femur, left knee. She was given oral Tylenol, IM Toradol, oral Robaxin, oral gabapentin, topical Lidoderm patch for symptomatic improvement. I also gave her oral Zofran as she notes that she gets nauseated with pain medications. Prior to obtaining imaging, son reported concerns that she could have a kidney stone, because he states that her pain actually started overnight more so than when she had fallen. He notes that she does have a history of kidney stones. Given this, added on CBC, CMP, urinalysis, and CT abdomen pelvis without IV contrast. I independently interpreted CT's and XR prior to the radiologist read and noted no acute fracture, no renal stone. Please see their read for final interpretation. Labs were obtained that demonstrated mild hypokalemia for which oral replacement was ordered. Looks like she has chronic hypokalemia. Mild anemia noted. Urine is not concerning for infection, CBC and chemistry otherwise reassuring, imaging not concerning for acute fracture.. Patient is feeling better after administration of medications and she is able to ambulate in the emergency department. Given this, I feel that she is appropriate for discharge home with close follow-up on an outpatient basis for further advanced imaging if she continues to have pain. She is given prescription for naproxen and Robaxin and strict return precautions. She was discharged after all questions were answered Critical Care Critical Care Time Critical Care Time: No
[2024-08-04] MEDS: METHOCARBAMOL 500MG TABLET 500 MG PO (08:39)
[2024-08-04] MEDS: ACETAMINOPHEN 500MG TAB 1000 MG PO (08:39)
[2024-08-04] MEDS: ONDANSETRON 4MG ODT 4 MG SL (08:39)
[2024-08-04] MEDS: GABAPENTIN 300MG CAPSULE 300 MG PO (08:39)
[2024-08-04] MEDS: KETOROLAC 30MG/ML VIAL 30 MG IM (08:40)
[2024-08-04] MEDS: LIDOCAINE 5% TRANSDERMAL PATCH 1 EACH TP (08:40)
--- NOTE | 2024-08-04 08:53 | CT_ITS ---
FINAL REPORT TECHNIQUE: Axial images through the abdomen and pelvis were performed without contrast. This study was performed with techniques to keep radiation doses as low as reasonably achievable, (ALARA). Individualized dose reduction techniques using automated exposure control or adjustment of mA and/or kV according to the patient's size were employed. CLINICAL HISTORY: L sided low back pain COMPARISON: None FINDINGS: Abdomen: Scarring is present in the lung bases bilaterally. A small sliding-type hiatal hernia is present. The liver parenchyma is homogeneous. The gallbladder is surgically absent. The pancreas, adrenals and kidneys are unremarkable. Calcified granulomas are present in the spleen. Pelvis: The urinary bladder is unremarkable. The appendix is normal in appearance. Streak artifact from bilateral hip prostheses obscures portions of the bony pelvis. There is 25 degrees of levoscoliosis. IMPRESSION: No acute abnormality identified in the abdomen or pelvis. Streak artifact from bilateral hip prostheses obscures portions of the pelvis. Reviewed, Interpreted and Dictated by Jorge Marquez MD Transcribed by Anna Chang Authenticated and [facility]
[2024-08-04 09:25] LABS: Microscopic, Urine URINE MICROSCOPIC (MICROSCOPIC)
[2024-08-04 09:29] LABS: Appearance,Urine CLEAR (Clear); Bilirubin,Urine Negative (Negative); Blood, Urine Negative (Negative); Color,Urine YELLOW (Yellow); Glucose,Urine (UA) Negative (Negative); Ketones,Urine TRACE (Negative); Leukocyte Esterase,Urine Negative (Negative); Nitrate,Urine Negative (Negative); PH,Urine 5.5 (5.0-8.5); Protein,Urine Negative (Negative); Specific Gravity, Urine <= 1.005 (1.005-1.030); Urobilinogen,Urine 0.2 EU/dl (0.2)
[2024-08-04 09:49] LABS: Basophils % 0.5 % (0.1-2.0); Eosinophils # 0.1 K/mm3 (0.0-0.4); Eosinophils % 1.4 % (0.1-12.0); Hematocrit 35.4 % (37.0-47.0); Hemoglobin 11.7 g/dL (12.2-16.2); Lymphocytes # 1.5 K/mm3 (0.7-4.5); Lymphocytes % 20.8 % (10-50); Mean Corpuscular HGB Conc 33.1 g/dL (31.8-35.4); Mean Corpuscular Hemoglobin 26.7 pg (27.0-31.2); Mean Corpuscular Volume 80.8 fl (81-99); Mean Platelet Volume 11.4 fl (7.4-10.4); Monocytes # 0.5 K/mm3 (0.1-1.0); Monocytes % 6.9 % (1.7-9.3); Neutrophils # 5.2 K/mm3 (1.8-7.8); Neutrophils % 70.1 % (37.0-80.0); Platelet Count 255 K/mm3 (142-424); Red Blood Count 4.38 M/mm3 (4.20-5.40); Red Cell Distribution Width 13.2 % (11.5-17.5); White Blood Count 7.4 K/mm3 (4.8-10.8)
[2024-08-04 09:52] LABS: Bacteria,Urine Trace /lpf; Squamous Epithelial Cell,Urine Occasional #/hpf (0-5)
[2024-08-04 10:07] LABS: Alanine Aminotransferase 18 U/L (12-78); Albumin Level 4.3 g/dl (3.5-5.0); Albumin/Globulin Ratio 1.7 (1.1-1.8); Alkaline Phosphatase 128 U/L (38-126); Anion Gap 14.2 mEq/L (5-15); Aspartate Amino Transferase 34 U/L (14-36); Blood Urea Nitrogen 8 mg/dl (7-17); Calcium 9.1 mg/dl (8.4-10.2); Carbon Dioxide 28 mmol/L (22.0-30.0); Chloride 102 mmol/L (98-107); Creatinine Clearance Estimated 45 mL/min (50-200); Estimated Glomerular Filt Rate 154 ml/min (>60); GFR (African American) 186 ML/MIN (>60); Globulin 2.6 g/dL (1.3-3.2); Glucose 110 mg/dl (74-100); Potassium 3.2 mmoL/L (3.5-5.1); Sodium 141 mmol/L (136-145); Total Protein,Serum 6.9 g/dl (6.3-8.2)
--- NOTE | 2024-08-04 10:39 | PC.NURSE ---
PT MEDICATED AND PROVIDED CRACKERS AND PEANUT BUTTER, FAMILY AT BEDSIDE. NO NEEDS AT THIS TIME
[2024-08-04] MEDS: POTASSIUM CHLORIDE 20MEQ TAB 60 MEQ PO (10:40)
--- NOTE | 2024-08-04 10:58 | PC.NURSE ---
Fior and Jairo ambulated the pt with no issues with a walker.
[2024-08-04 11:07] VITALS: BP 154/68; PULSE 82; RESP 18; TEMP 37; O2SAT 98
== END 2024-08-04 11:08 | disposition home or self-care (01) ==
PROVIDERS: Emergency Provider Emergency Medicine; PCP Nurse Practitioner Family
DX: M54.16 Radiculopathy, lumbar region (principal); M54.50 Low back pain, unspecified; M79.605 Pain in left leg; W19.XXXA Unspecified fall, initial encounter
CPT/HCPCS: 70450; 72125; 72128; 72131; 72192; 73502; 73552; 74176; 80053; 81001; 85025; 96372; 99285; J1885; Q0162

== ENCOUNTER 2024-08-16 17:43 | Observation (INO) | payer MEDICARE, SELFPAY ==
[2024-08-16] VITALS (10 sets, daily range): BP systolic 142–186; BP diastolic 64–99; PULSE 53–86; RESP 11–24; TEMP 36.6–36.9; O2SAT 94–98; BMI 24.0; BMI 22.5
[2024-08-16 18:26] LABS: Coronavirus 19, PCR Not Detected (NotDetected); Influenza A, PCR Not Detected (NotDetected); Influenza B, PCR Not Detected (NotDetected)
[2024-08-16 18:32] LABS: Basophils % 0.5 % (0.1-2.0); Eosinophils # 0.2 K/mm3 (0.0-0.4); Eosinophils % 2.7 % (0.1-12.0); Hematocrit 37.5 % (37.0-47.0); Hemoglobin 13.7 g/dL (12.2-16.2); Lymphocytes # 2.8 K/mm3 (0.7-4.5); Mean Corpuscular HGB Conc 36.5 g/dL (31.8-35.4); Mean Corpuscular Hemoglobin 29.3 pg (27.0-31.2); Mean Corpuscular Volume 80.3 fl (81-99); Mean Platelet Volume 11.7 fl (7.4-10.4); Monocytes # 0.7 K/mm3 (0.1-1.0); Monocytes % 7.8 % (1.7-9.3); Neutrophils # 4.8 K/mm3 (1.8-7.8); Neutrophils % 55.7 % (37.0-80.0); Platelet Count 315 K/mm3 (142-424); Red Blood Count 4.67 M/mm3 (4.20-5.40); Red Cell Distribution Width 13.2 % (11.5-17.5); White Blood Count 8.6 K/mm3 (4.8-10.8)
[2024-08-16 18:36] LABS: Microscopic, Urine URINE MICROSCOPIC (MICROSCOPIC)
[2024-08-16 18:37] LABS: Alanine Aminotransferase 22 U/L (12-78); Albumin Level 4.4 g/dl (3.5-5.0); Albumin/Globulin Ratio 1.6 (1.1-1.8); Alkaline Phosphatase 192 U/L (38-126); Anion Gap 13.2 mEq/L (5-15); Aspartate Amino Transferase 31 U/L (14-36); Bilirubin,Total 0.7 mg/dl (0.2-1.3); Blood Urea Nitrogen 16 mg/dl (7-17); Calcium 9.2 mg/dl (8.4-10.2); Carbon Dioxide 29 mmol/L (22.0-30.0); Chloride 98 mmol/L (98-107); Creatinine Clearance Estimated 45 mL/min (50-200); Estimated Glomerular Filt Rate 154 ml/min (>60); GFR (African American) 186 ML/MIN (>60); Globulin 2.8 g/dL (1.3-3.2); Glucose 116 mg/dl (74-100); Lipase 267 U/L (23-300); Sodium 138 mmol/L (136-145); Total Protein,Serum 7.2 g/dl (6.3-8.2)
[2024-08-16 18:38] LABS: Appearance,Urine CLEAR (Clear); Bilirubin,Urine Negative (Negative); Blood, Urine Negative (Negative); Color,Urine YELLOW (Yellow); Glucose,Urine (UA) Negative (Negative); Ketones,Urine Negative (Negative); Leukocyte Esterase,Urine TRACE (Negative); Nitrate,Urine Negative (Negative); PH,Urine 5.5 (5.0-8.5); Protein,Urine Negative (Negative); Specific Gravity, Urine <= 1.005 (1.005-1.030); Urobilinogen,Urine 0.2 EU/dl (0.2)
[2024-08-16 18:39] LABS: HCG Qualitative, Serum Negative (Negative)
[2024-08-16 18:41] LABS: Potassium 2.2 mmoL/L (3.5-5.1)
--- NOTE | 2024-08-16 18:41 | PC.NURSE ---
STENCIL TYPIST MELVIN TOOK CRITICAL FROM LAB POTASSIUM 2.2
--- NOTE | 2024-08-16 18:42 | ED_ITS ---
Discharge Plan Disposition Patient Disposition: Admitted Condition: Fair Chief Complaint: Abdominal Pain Clinical Impressions Clinical Impression: Hypokalemia, Nausea vomiting and diarrhea, Acute dehydration Discharge ED Provider: Pepe Márquez Adult HPI General Chief complaint: Abdominal Pain Stated complaint: V/D,stomach pain,weakness Time Seen by Provider: 08/16/24 18:18 Mode of Arrival: Ambulatory Source of Information: Patient Limitations: No Limitations Description of Symptoms (Recalled from ER Triage Doc. by RN): Patient presents with generalized illness. States she has been having nausea today. States she also feels generally ill with body aches. Denies fever. Endorses diarrhea. Denies blood in stool. Denies any urinary symptoms. History of Present Illness HPI narrative: Patient is an 79-year-old female with a history of hypertension, hyperlipidemia, recent hip replacement on daily aspirin. She is presenting today due to nausea, nonbloody vomiting and nonbloody diarrhea that began this morning upon waking up. Also generalized malaise. She denies any sick contacts peer denies any fevers, chest pain, shortness of breath. Global weakness, nothing focal. Cramping epigastric and left upper quadrant pain. Does not radiate. Has tried Tylenol at home with minimal relief. Related Data Home Medications ?Medication ?Instructions ?Recorded ?Confirmed cholecalciferol (vitamin D3) 1,250 50,000 unit PO WEEKLY Supplement 10/16/20 11/29/21 mcg (50,000 unit) capsule diphenhydramine HCl 25 mg tablet 25 mg PO DAILY Allergy symptoms 10/16/20 11/29/21 omeprazole 40 mg capsule,delayed 40 mg PO DAILY GERD 10/16/20 11/29/21 release simvastatin 20 mg tablet 20 mg PO HS Cholesterol 10/16/20 11/29/21 carbidopa 25 mg-levodopa 100 mg 1 each PO HS Tremors 10/17/20 11/29/21 tablet metoprolol tartrate 100 mg tablet 100 mg PO 11/29/21 11/29/21 Previous Rx's ?Medication ?Instructions ?Recorded methocarbamol 750 mg tablet 750 mg PO Q8H PRN pain #20 tabs 08/04/24 naproxen 500 mg tablet 500 mg PO BID #20 tabs 08/04/24 Allergies Allergy/AdvReac Type Severity Reaction Status Date / Time Penicillins Allergy Unknown Verified 08/16/24 17:56 allergy reaction Sulfa (Sulfonamide Allergy Unknown Verified 08/16/24 17:56 Antibiotics) allergy reaction oxycodone (From Percocet) AdvReac Mild Flushing Verified 08/16/24 17:56 [facility] Disclaimer: The information contained in this section may have been updated after the patient was seen, as this information can be updated by other users. Social History Smoking Status: Never smoker alcohol intake: never substance use type: denies use current occupational status: retired Travel in the last 8 weeks: None household members: spouse Have you lived/traveled outside [place] in past 30 days?: No Contact w/someone who lives/traveled outside [place] past 30 days?: No Exposure to someone with infectious disease in past 14 days?: No Do you have a fever (greater than 100.4 F or 38 C)?: No Have you tested positive for COVID-19: No Exposed to someone with COVID-19 in past 14 days?: No Do you have a sore throat?: No Do you have a cough?: No Do you have any weakness?: Yes Do you have any diarrhea?: Yes Are you experiencing any unusual bleeding?: No Do you have any muscle aches/pain?: No Do you have any abdominal pain?: No Are you experiencing loss of taste or smell?: No Other Medical History Have you received the Flu Vaccine for this season: No Have you received the Pneumonia Vaccine: No ROS Obtained: Yes All systems reviewed & no additional complaints except as documented Physical Exam General General appearance: alert and in no apparent distress Head Head exam: atraumatic and normocephalic Eye Eye exam: Present PERRL and EOMI ENT ENT exam: Present normal oropharynx and mucous membranes dry Neck Neck exam: Present full ROM and trachea midline Chest Chest inspection: Present symmetric chest wall rise Respiratory Respiratory exam: Present normal lung sounds bilaterally; Absent stridor Cardiovascular Cardiovascular exam: Present regular rate and normal rhythm Abdominal Exam Abdominal exam: Present soft; Absent distention or tenderness Extremities Exam Extremities exam: Present full ROM Neurological Exam Neurological exam: Present alert and oriented X3 Psychiatric Psychiatric exam: Present normal mood Skin Skin exam: Present warm and dry Medical Decision Making Medical Records Screening: Per USPSTF and CDC recommendations, given the prevalence of disease in our region, it is our hospital?s policy to screen for HIV and viral Hepatitis for all patients aged 18 and over and those with ongoing risk factors. Steffen Inquiry Pt receiving controlled substance: No Vital Signs: 08/16/24 17:50 08/16/24 18:42 08/16/24 18:43 Temperature 98.5 F Temperature Source Oral Pulse Rate 56 L 72 Pulse Rate [Radial] 53 L Respiratory Rate 18 24 Blood Pressure 177/71 H Blood Pressure [R Arm] 142/82 H Blood Pressure Mean [R Arm] 102 Blood Pressure Source [R Arm] Automatic Cuff Blood Pressure Position [R Arm] Sitting 02 Sat by Pulse Oximetry 98 97 96 Oxygen Delivery Method Room Air Room Air 08/16/24 18:45 08/16/24 19:00 08/16/24 19:01 Temperature Temperature Source Pulse Rate 79 54 L 60 Pulse Rate [Radial] Respiratory Rate 18 17 16 Blood Pressure 167/64 H Blood Pressure [R Arm] Blood Pressure Mean [R Arm] Blood Pressure Source [R Arm] Blood Pressure Position [R Arm] 02 Sat by Pulse Oximetry 98 96 97 Oxygen Delivery Method 08/16/24 19:15 08/16/24 19:30 08/16/24 19:31 Temperature Temperature Source Pulse Rate 56 L 58 L 69 Pulse Rate [Radial] Respiratory Rate 11 L 20 17 Blood Pressure 168/69 H Blood Pressure [R Arm] Blood Pressure Mean [R Arm] Blood Pressure Source [R Arm] Blood Pressure Position [R Arm] 02 Sat by Pulse Oximetry 94 L 96 94 L Oxygen Delivery Method Lab Data Lab Results 08/16/24 18:10: WBC 8.6, RBC 4.67, Hgb 13.7, Hct 37.5, MCV 80.3 L, MCH 29.3, M CHC 36.5 H, RDW 13.2, Plt Count 315, MPV 11.7 H, Neut % (Auto) 55.7, Lymph % (Auto) 33.0, [place] % (Auto) 7.8, Eos % (Auto) 2.7, Baso % (Auto) 0.5, Neut # (Auto) 4.8, Lymph # (Auto) 2.8, [place] # (Auto) 0.7, Eos # (Auto) 0.2, Baso # (Auto) 0.0, Sodium 138, Potassium 2.2 L*, Chloride 98, Carbon Dioxide 29, Anion Gap 13.2, BUN 16, Creatinine 0.40 L, Estimated Creat Clear 45, Estimated GFR 154, Est GFR ( Amer) 186, Glucose 116 H, Calcium 9.2, Magnesium 1.9, Total Bilirubin 0.7, AST 31, ALT 22, Alkaline Phosphatase 192 H, Total Protein 7.2, Albumin 4.4, Globulin 2.8, Albumin/Globulin Ratio 1.6, Lipase 267, Serum HCG, Qual Negative, Urine Color Yellow, Urine Appearance Clear, Urine pH 5.5, Ur Specific [place] <= 1.005, Urine Protein Negative, Urine Glucose (UA) Negative, Urine Ketones Negative, Urine Blood Negative, Urine Nitrate Negative, Urine Bilirubin Negative, Urine Urobilinogen 0.2, Ur Leukocyte Esterase Trace, Urine RBC None, Urine WBC 3-5, Ur Squamous Epith Cells 3-5, Urine Bacteria Trace, HCV Ab CHARLIE w/Rflx PCR Qn Negative, HIV Ag/Ab Combo Qual Negative 08/16/24 18:12: SARS-CoV-2 (PCR) Not detected, Influenza A Untype (PCR) Not detected, Influenza Type B (PCR) Not detected 08/16/24 19:25: Lactate 1.8 08/16/24 18:10 08/16/24 18:10 Orders (Tests/Meds): ED MEDICATIONS Discontinued Medications Generic Name Dose Route Start Last Admin Trade Name Freq PRN Reason Stop Dose Admin Acetaminophen 1,000 mg 08/16/24 18:50 08/16/24 18:58 Acetaminophen 500mg Tab PO 08/16/24 18:51 1,000 mg ONCE ONE Administration Lactated Ringer's 1,000 mls @ 999 mls/hr 08/16/24 18:50 08/16/24 18:58 Lactated Ringer's 1000 Ml Bag IV 08/16/24 19:50 999 mls/hr .Q1H1M ONE Administration Iopamidol 75 ml 08/16/24 19:43 08/16/24 19:44 Iopamidol-370 (76%);100ml Bottle IV 08/16/24 19:44 75 ml ONCE ONE Administration Ondansetron HCl 4 mg 08/16/24 18:50 08/16/24 18:58 Ondansetron 4mg/2ml Vial IV 08/16/24 18:51 4 mg ONCE ONE Administration Potassium Chloride 60 meq 08/16/24 18:52 08/16/24 18:58 Potassium Chloride 20meq Tab PO 08/16/24 18:53 60 meq ONCE ONE Administration Sodium Chloride 10 ml 08/16/24 19:43 08/16/24 19:44 Sodium Chloride 0.9% 10ml Syr (Rad Only) IV 08/16/24 19:44 10 ml ONCE ONE Administration ORDERS Category Date Time Status CT abdomen pelvis w con Stat Cat Scan 08/16/24 18:53 Completed Complete Blood Count Auto Diff Stat Lab 08/16/24 18:10 Completed Comprehensive Metabolic Panel Stat Lab 08/16/24 18:10 Completed HIV Combo Stat Lab 08/16/24 18:10 Completed Hepatitis C Ab Qual. W/ RFX Stat Lab 08/16/24 18:10 Completed Lactic Acid Stat Lab 08/16/24 19:25 Completed Lipase Stat Lab 08/16/24 18:10 Completed Magnesium Stat Lab 08/16/24 18:10 Completed Rapid PCR Covid and Flu A/B Stat Lab 08/16/24 18:12 Completed Serum [HCG Qualitative, Serum] Stat Lab 08/16/24 18:10 Completed Urinalysis and Microscopic Stat Lab 08/16/24 18:10 Completed Medical Decision Narrative: In summary, this 79-year-old female presents to the emergency department today with nausea vomiting diarrhea abdominal pain. On initial evaluation patient is afebrile, hemodynamically stable. On exam, she appears dry, but has full pulses in upper extremities. Diminished capillary refill to about 3 seconds. Will fluid resuscitate. She has had no bleeding noted. Her abdominal exam is soft, not distended, no peritoneal signs but does have reproducible epigastric and left upper quadrant abdominal pain.. Differential diagnosis includes but is not limited to viral gastroenteritis, flu, electrolyte disturbance, dehydration, bowel obstruction, diverticulitis, intra-abdominal abscess. Based on these concerns, I ordered CBC CMP lipase lactate CT abdomen pelvis with, urinalysis. ECG personally interpreted demonstrates normal sinus rhythm with an incomplete right bundle branch block, no acute ischemic ST changes, QTc elongated at 520.. Patient received LR bolus, Zofran, Tylenol, potassium for treatment. Labs personally reviewed demonstrate no leukocytosis, no evidence of anemia, hypokalemia to 2.2, urinalysis unremarkable. COVID flu negative. CT imaging personally interpreted demonstrate no acute intra-abdominal pathology, does remark upon sacral ala fractures and a transverse process fracture in her lumbar spine. She is ambulatory and not overtly tender in those areas. She does report that she had a fall 2 weeks ago and was having pain then. She has been ambulatory on it, these are not acutely actionable.. I had an interactive discussion with the hospitalist who agrees to meet the patient to service for further workup and further management to be transferred to the service in hemodynamically still condition. On reassessment patient reports no improvement in her pain. She has been unable to tolerate oral intake here in the emergency department.. At this time it was felt that the patient was safe to be discharged home. The patient was in agreement with this plan. The patient was given strict return precautions prior to being discharged from the emergency department. Critical Care Critical Care Time Critical Care Time: Yes Attestation: On 08/16/24, the high probability of a clinically significant, sudden or life threatening deterioration of the following system(s) required my full and direct attention, intervention and personal management. The time I documented below is in addition to time spent performing reported procedures but includes the following listed in this critical care notation. Total Time Total Critical Care Time: 35
--- NOTE | 2024-08-16 18:53 | CT_ITS ---
PROCEDURE INFORMATION: Exam: CT Abdomen And Pelvis With Contrast Exam date and time: 08/16/2024 7:43 PM Age: 79 years old Clinical indication: Abdominal pain; Generalized; Additional info: Rlq and suprapubic ttp, n/v/d TECHNIQUE: Imaging protocol: Computed tomography of the abdomen and pelvis with contrast. Radiation optimization: All CT scans at this facility use at least one of these dose optimization techniques: automated exposure control; mA and/or kV adjustment per patient size (includes targeted exams where dose is matched to clinical indication); or iterative reconstruction. Contrast material: ISOVUE; Contrast volume: 75 ml; Contrast route: IV; COMPARISON: CT ABDOMEN PELVIS WO CON 08/04/2024 9:05 AM FINDINGS: Lungs: Calcified small right posterior lung nodule. Liver: Normal. No mass. Gallbladder and biliary ducts: Cholecystectomy Pancreas: Normal. No ductal dilation. 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 Adrenal glands: Normal. No mass. Kidneys and ureters: Normal. No hydronephrosis. Stomach and bowel: Unremarkable. No obstruction. No mucosal thickening. Appendix: Normal appendix Intraperitoneal space: Unremarkable. No free air. No significant fluid collection. Vasculature: Unremarkable. No abdominal aortic aneurysm. Lymph nodes: Unremarkable. No enlarged lymph nodes. Urinary bladder: Unremarkable as visualized. Reproductive: Unremarkable as visualized. Bones/joints: Bilateral hip arthroplasties. Leftward curvature of the lumbar alignment. At the right transverse process of L5, there is a new nondisplaced fracture. Nondisplaced sacral ala fractures are also present bilaterally. Previous L4 laminectomy. Diffuse decreased disc space height is demonstrated through the majority of the lumbar spine extending from the L2-L5 levels. Soft tissues: Unremarkable. IMPRESSION: 1. New nondisplaced fractures of the right L5 transverse process and bilateral sacral ala. correlate with history of falls. 2. No visible acute intra-abdominal abnormality.
[2024-08-16] MEDS: ACETAMINOPHEN 500MG TAB 1000 MG PO (18:58)
[2024-08-16] MEDS: ONDANSETRON 4MG/2ML VIAL 4 MG IV (18:58)
[2024-08-16] MEDS: LACTATED RINGERS 1000ML 1,000 ML 999 ML IV (18:58)
[2024-08-16] MEDS: POTASSIUM CHLORIDE 20MEQ TAB 60 MEQ PO (18:58)
--- NOTE | 2024-08-16 19:07 | ECG_ITS ---
APPROVED REPORT Exam: Resting ECG HR:75 bpm ECG Measurements Heart Rate 75 AXES MN 169 P 46 QRSd 154 QRS -35 QT 491 T -43 QTc 520 Conclusion SINUS RHYTHM WITH OCCASIONAL SUPRAVENTRICULAR PREMATURE COMPLEXES LEFT AXIS DEVIATION [QRS AXIS < -30] RIGHT BUNDLE BRANCH BLOCK [120+ ms QRS DURATION, UPRIGHT V1, 40+ ms S IN I/aVL/V4/V5/V6] MODERATE T-WAVE ABNORMALITY, CONSIDER LATERAL ISCHEMIA [-0.1+ mV T-WAVE IN I/aVL/V5/V6] MODERATE T-WAVE ABNORMALITY, CONSIDER INFERIOR ISCHEMIA [-0.1+ mV T-WAVE IN II/aVF] ABNORMAL ECG UNCONFIRMED REPORT Electronically signed by : Pepe Márquez, 08/16/2024 23:18:49
[2024-08-16 19:09] LABS: Bacteria,Urine Trace /lpf
[2024-08-16 19:16] LABS: Magnesium 1.9 mg/dl (1.6-2.3)
[2024-08-16 19:22] LABS: HIV Combo NEGATIVE (Negative)
--- NOTE | 2024-08-16 19:22 | PC.NURSE ---
Iv positional, reposition arm,
[2024-08-16] MEDS: SODIUM CHLORIDE 0.9% 10ML SYR (RAD ONLY) 10 ML IV (19:44)
[2024-08-16] MEDS: IOPAMIDOL-370 (76%);100ML BOTTLE 75 ML IV (19:44)
[2024-08-16 19:46] LABS: Hepatitis C Ab Qual. W/ RFX NEGATIVE (Negative)
[2024-08-16 19:50] LABS: Lactic Acid 1.8 mmol/L (0.7-2.1)
--- NOTE | 2024-08-16 21:10 | PC.NURSE ---
iv fluids not running. IV site blown. Restarted #20 to left wrist.
--- NOTE | 2024-08-16 22:31 | PC.NURSE ---
Report called to [facility]
--- NOTE | 2024-08-16 22:46 | PC.NURSE ---
Patient arrived to floor via stretcher from ED at 22:45.
[2024-08-17] VITALS (8 sets, daily range): BP systolic 144–180; BP diastolic 47–89; PULSE 70–89; RESP 16; TEMP 36.6–36.9; O2SAT 94–96; BMI 22.5
[2024-08-17] MEDS: POTASSIUM CHLORIDE 20MEQ TAB 40 MEQ PO ×3 (00:59→09:31)
[2024-08-17] MEDS: LACTATED RINGERS 1000ML 1,000 ML 50 ML IV ×2 (00:59→19:58)
[2024-08-17] MEDS: MAGNESIUM SULFATE IN WATER 2 GM/50 ML PIGGYBACK IV (00:59)
--- NOTE | 2024-08-17 02:14 | P.HP_ITS ---
<Statement entered by Nik Dumont MD - 08/18/24 12:47> I personally evaluated patient and agree with plan of care outlined by the NETWORK SUPPORT TECHNICIAN. History of Present Illness *Admission Date: 08/16/24 *Reason for visit:: Nausea malaise *History of present illness: The patient is an 79-year-old female with a past medical history of hypertension, hyperlipidemia, and a recent hip replacement who takes daily aspirin. She presents with nausea, nonbloody vomiting, and nonbloody diarrhea that started upon waking this morning, accompanied by generalized malaise. She denies fever, chest pain, shortness of breath, or recent sick contacts. She describes epigastric and left upper quadrant abdominal cramping without radiation, partially relieved by Tylenol at home. On examination, she is afebrile, hemodynamically stable, appears mildly dehydrated with a capillary refill of about 3 seconds, and reports no bleeding. Her abdomen is soft and nondistended, with no peritoneal signs, but epigastric and LUQ tenderness. Initial labs show hypokalemia (K? 2.2), normal WBC, and a lipase of 267. Urinalysis is unremarkable, and COVID/flu testing is negative. A CT of the abdomen and pelvis reveals no acute intra-abdominal process but notes old sacral ala fractures and a transverse process fracture likely related to a fall two weeks ago. She remains ambulatory and is not overtly tender in those areas. She received IV fluids (LR), ondansetron, acetaminophen, and potassium supple mentation. Initially she was to be discharged but failed p.o. challenge due to nausea and was admitted for her hypokalemia continue monitoring evaluation [facility] Disclaimer: The information contained in this section may have been updated after the patient was seen, as this information can be updated by other users. Medical History Hyperlipemia HTN (hypertension) HTN (hypertension) Diverticulitis Surgical History History of hip surgery Social History Smoking Status: Never smoker alcohol intake: never substance use type: denies use current occupational status: retired Travel in the last 8 weeks: None household members: spouse Have you lived/traveled outside US in past 30 days?: No Contact w/someone who lives/traveled outside US past 30 days?: No Exposure to someone with infectious disease in past 14 days?: No Do you have a fever (greater than 100.4 F or 38 C)?: No Have you tested positive for COVID-19: No Exposed to someone with COVID-19 in past 14 days?: No Do you have a sore throat?: No Do you have a cough?: No Do you have any weakness?: Yes Do you have any diarrhea?: Yes Are you experiencing any unusual bleeding?: No Do you have any muscle aches/pain?: No Do you have any abdominal pain?: No Are you experiencing loss of taste or smell?: No Other Medical History Have you received the Flu Vaccine for this season: Yes Have you received the Pneumonia Vaccine: No Review of Systems Review of Systems Review of systems (narrative): 13 point review of systems negative outside [facility] Meds Home Medications and Allergies Home Medications ?Medication ?Instructions ?Recorded ?Confirmed ?Type cholecalciferol (vitamin D3) 1,250 50,000 unit PO WEEKLY Supplement 10/16/20 08/17/24 History mcg (50,000 unit) capsule diphenhydramine HCl 25 mg tablet 25 mg PO DAILY Allergy symptoms 10/16/20 08/17/24 History omeprazole 40 mg capsule,delayed 40 mg PO DAILY GERD 10/16/20 08/17/24 History release simvastatin 20 mg tablet 20 mg PO HS Cholesterol 10/16/20 08/17/24 History metoprolol tartrate 100 mg tablet 100 mg PO DAILY 11/29/21 08/17/24 History methocarbamol 750 mg tablet 750 mg PO Q8H PRN pain #20 tabs 08/04/24 08/17/24 Rx naproxen 500 mg tablet 500 mg PO BID #20 tabs 08/04/24 08/17/24 Rx New Prescriptions to Start Prescriptions: Allergies Allergy/AdvReac Type Severity Reaction Status Date / Time Penicillins Allergy Unknown Verified 08/16/24 17:56 allergy reaction Sulfa (Sulfonamide Allergy Unknown Verified 08/16/24 17:56 Antibiotics) allergy reaction oxycodone (From Percocet) AdvReac Mild Flushing Verified 08/16/24 17:56 Exam Data for Last 24 hours Vital signs and Labs for Last 24 Hours: Temp Pulse Resp BP Pulse Ox O2 Del Method 97.8 F 80 14 186/99 H 96 Room Air 08/16/24 23:00 08/17/24 00:00 08/16/24 23:00 08/16/24 23:00 08/16/24 23:00 08/17/24 01:00 Laboratory Results - last 24 hr 08/16/24 18:10: WBC 8.6, RBC 4.67, Hgb 13.7, Hct 37.5, MCV 80.3 L, MCH 29.3, MCHC 36.5 H, RDW 13.2, Plt Count 315, MPV 11.7 H, Neut % (Auto) 55.7, Lymph % (Auto) 33.0, [place] % (Auto) 7.8, Eos % (Auto) 2.7, Baso % (Auto) 0.5, Neut # (Auto) 4.8, Lymph # (Auto) 2.8, [place] # (Auto) 0.7, Eos # (Auto) 0.2, Baso # (Auto) 0.0, Sodium 138, Potassium 2.2 L*, Chloride 98, Carbon Dioxide 29, Anion Gap 13.2, BUN 16, Creatinine 0.40 L, Estimated Creat Clear 45, Estimated GFR 154, Est GFR ( Amer) 186, Glucose 116 H, Calcium 9.2, Magnesium 1.9, Total Bilirubin 0.7, AST 31, ALT 22, Alkaline Phosphatase 192 H, Total Protein 7.2, Albumin 4.4, Globulin 2.8, Albumin/Globulin Ratio 1.6, Lipase 267, Serum HCG, Qual Negative, Urine Color Yellow, Urine Appearance Clear, Urine pH 5.5, Ur Specific [place] <= 1.005, Urine Protein Negative, Urine Glucose (UA) Negative, Urine Ketones Negative, Urine Blood Negative, Urine Nitrate Negative, Urine Bilirubin Negative, Urine Urobilinogen 0.2, Ur Leukocyte Esterase Trace, Urine RBC None, Urine WBC 3-5, Ur Squamous Epith Cells 3-5, Urine Bacteria Trace, HCV Ab CHARLIE w/Rflx PCR Qn Negative, HIV Ag/Ab Combo Qual Negative 08/16/24 18:12: SARS-CoV-2 (PCR) Not detected, Influenza A Untype (PCR) Not detected, Influenza Type B (PCR) Not detected 08/16/24 19:25: Lactate 1.8 I & O for Last 24 hours: Intake & Output 08/14/24 08/15/24 08/16/24 08/17/24 23:59 23:59 23:59 23:59 Intake Total 250 / 250 Balance 250 / 250 Weight 59.92 kg Constitutional Constitutional: no acute distress *Routine HEENT Exam Head: Present normocephalic Eye: Present EOMI and PERRL ENT: Present mucous membranes moist *Routine Neck Exam Neck: Present supple; Absent lymphadenopathy *Routine Respiratory Exam Respiratory: Present CTA bilaterally *Routine Cardiovascular Exam Cardiovascular: Present RRR *Routine Abdominal Exam Abdominal: Present soft and normoactive bowel sounds; Absent tenderness *Routine Rectal Exam Rectal:: deferred *Routine Genitalia Exam Genitalia:: deferred *Routine Extremities Exam Extremities: Absent cyanosis, clubbing or edema *Routine Skin Exam Skin: Present warm; Absent rash *Routine Neurological Exam Neurological: Present alert and oriented X3 Assessment and Plan *Assessment and plan (1) Acute dehydration: Status: Acute Category: Medical Code(s): E86.0 - Dehydration (2) Nausea vomiting and diarrhea: Status: Acute Category: Medical Code(s): R11.2 - Nausea with vomiting, unspecified; R19.7 - Diarrhea, unspecified (3) Acute lumbar radiculopathy: Status: Acute Category: Medical Code(s): M54.16 - Radiculopathy, lumbar region (4) Hypokalemia: Status: Acute Category: Medical Code(s): E87.6 - Hypokalemia (5) Closed fracture of left hip: Status: Acute Category: Medical Code(s): S72.002A - Fracture of unspecified part of neck of left femur, initial encounter for closed fracture (6) Hypertension: Status: Acute Category: Medical Code(s): I10 - Essential (primary) hypertension Plan Medical Decision Making Her presentation of acute gastroenteritis-like symptoms with hypokalemia and elevated lipase raises concern for possible mild pancreatitis versus viral gastroenteritis or another inflammatory process. However, the CT scan shows no acute pathology, and labs do not reveal leukocytosis or other red flags for surgical abdomen. She appears hemodynamically stable with improvement after IV fluid resuscitation and antiemetics. We will continue electrolyte repletion and pain control, monitor for resolution of gastrointestinal symptoms, and ensure no further cardiac concerns given her elongated QTc. If she remains stable and adequately hydrated with normalizing potassium, outpatient management may be sufficient. Acute Nausea, Vomiting, Diarrhea (Possible Viral Gastroenteritis vs. Mild Pancreatitis) * Continue IV fluids (LR or normal saline) to address dehydration. * Maintain bowel rest/light diet as tolerated, advance diet gradually. * Recheck electrolytes and lipase if symptoms persist or worsen. * Monitor for any signs of escalation (persistent pain, rising WBC, hemodynamic instability). Hypokalemia (K? 2.2) * IV potassium replacement has been initiated; repeat potassium level to ensure normalization. * Consider oral supplementation once she is able to tolerate PO intake. * Avoid QT-prolonging agents if possible, given her already prolonged QTc. Elevated Lipase (267) * Could represent a mild pancreatitis vs. nonspecific elevation. * Absence of severe abdominal pain or imaging findings reduces likelihood of acute pancreatitis, but continue to monitor pain levels and trend lipase if clinically indicated. Dehydration * Continue to assess fluid status (I/Os, weight, orthostatic vitals). * Ensure adequate oral intake once nausea subsides. Fractures on CT (Sacral Ala, Lumbar Transverse Process) * Appears old/healing based on history of a fall two weeks ago; she is ambulatory with minimal tenderness. * No acute orthopedic intervention required given current stability. * Advise follow-up with orthopedics or PCP if pain worsens or mobility declines. Hypertension, Hyperlipidemia, Recent Hip Replacement on Aspirin * Continue home regimen as appropriate; monitor blood pressure while on IV fluids. * Ensure no significant bleeding risk from aspirin. Disposition * Admit vs. Observation: Depending on response to fluids and electrolyte replacement, she may be observed for repletion and nausea control. * If stable, tolerating oral intake, with corrected potassium and improved symptoms, she could be discharged with close outpatient follow-up. * Repeat routine labs in a.m.
--- NOTE | 2024-08-17 04:28 | PC.NURSE ---
Pt A&OX4 and has tolerated room air. Lung sounds clear and bowel sounds active. She has remained fatigued. Potassium and magnesium replaced. Receiving LR@50. Purewick has remained in place and is draining well. Family member at bedside. No complaints at this time call light within reach.
[2024-08-17 07:06] LABS: Basophils % 0.4 % (0.1-2.0); Eosinophils # 0.4 K/mm3 (0.0-0.4); Eosinophils % 5.6 % (0.1-12.0); Hematocrit 36.8 % (37.0-47.0); Hemoglobin 12.4 g/dL (12.2-16.2); Lymphocytes # 1.9 K/mm3 (0.7-4.5); Lymphocytes % 28.3 % (10-50); Mean Corpuscular HGB Conc 33.7 g/dL (31.8-35.4); Mean Platelet Volume 11.9 fl (7.4-10.4); Monocytes # 0.5 K/mm3 (0.1-1.0); Monocytes % 6.9 % (1.7-9.3); Neutrophils % 58.4 % (37.0-80.0); Platelet Count 295 K/mm3 (142-424); Red Cell Distribution Width 13.2 % (11.5-17.5); White Blood Count 6.8 K/mm3 (4.8-10.8)
[2024-08-17 07:30] LABS: Anion Gap 10.3 mEq/L (5-15); Blood Urea Nitrogen 8 mg/dl (7-17); Calcium 8.4 mg/dl (8.4-10.2); Carbon Dioxide 28 mmol/L (22.0-30.0); Chloride 105 mmol/L (98-107); Creatinine Clearance Estimated 42 mL/min (50-200); Estimated Glomerular Filt Rate 154 ml/min (>60); GFR (African American) 186 ML/MIN (>60); Glucose 100 mg/dl (74-100); Magnesium 2.6 mg/dl (1.6-2.3); Potassium 3.3 mmoL/L (3.5-5.1); Sodium 140 mmol/L (136-145)
--- NOTE | 2024-08-17 08:53 | HMH.PHAINT1 ---
Pharmacy Intervention Comments: home medication list verified using list from outpatient pharmacy, pt interview and office list
[2024-08-17] MEDS: METOPROLOL TARTRATE 50MG TABLET 100 MG PO (09:31)
--- NOTE | 2024-08-17 09:49 | SW/DCPLANNER ---
Addendum entered by [facility] 08/19/24 13:21: Rosmery w/ [facility] stated that services will not be able to start till 08/31. I did call and update patient/family and they are fine w/ waiting longer for [facility]. Addendum entered by [facility] 08/19/24 11:55: Patient information/order faxed to [facility]. Addendum entered by [facility] 08/19/24 10:36: This patient has been denied SNF level of care by insurance. Patient/family are agreeable for patient to return home w/ home health services. Patient has used [facility] in the past and prefers to use this agency again at discharge. I will set up home health services. Per MD patient will discharge home later today. Patient currently has a rolling walker at home. Family will be at home to assist patient w/ needs. Addendum entered by [facility] 08/19/24 10:23: Updated documentation faxed to [facility]. Addendum entered by Celsa Wagner RN 08/18/24 13:18: Called [facility] and they stated it is with the MD for review and are unsure of when they would have a determiniation. Addendum entered by [facility] 08/17/24 14:29: [facility] has started a precert for SNF level of care. Original Note: I spoke w/ this patient and her son regarding plans once medically stable for discharge. PT/OT evaluated patient this AM and recommended SNF level of care. Patient is agreeable to placement at this time and prefers [facility]. Patient information will be faxed to [facility]. I will continue to follow up w/ patient, family, MD and [facility]. Discharge date is unknown at this time.
--- NOTE | 2024-08-17 10:25 | HMH.OTEV ---
OT Inpatient Evaluation Rehab OT IP Evaluation Start: 08/17/24 08:06 Freq: ONCE Status: Active Protocol: Document 08/17/24 10:19 LÓPEZ (Rec: 08/17/24 10:25 LÓPEZ [id number]) Rehab OT IP Assessment Subjective History The patient is an 79-year-old female with a past medical history of hypertension, hyperlipidemia, and a recent hip replacement who takes daily aspirin. She presents with nausea, nonbloody vomiting, and nonbloody diarrhea that started upon waking this morning, accompanied by generalized malaise. She denies fever, chest pain, shortness of breath, or recent sick contacts. She describes epigastric and left upper quadrant abdominal cramping without radiation, partially relieved by Tylenol at home. On examination, she is afebrile, hemodynamically stable, appears mildly dehydrated with a capillary refill of about 3 seconds, and reports no bleeding. Her abdomen is soft and nondistended, with no peritoneal signs, but epigastric and LUQ tenderness. Initial labs show hypokalemia (K? 2.2), normal WBC, and a lipase of 267. Urinalysis is unremarkable, and COVID/flu testing is negative. A CT of the abdomen and pelvis reveals no acute intra-abdominal process but notes old sacral ala fractures and a transverse process fracture likely related to a fall two weeks ago. She remains ambulatory and is not overtly tender in those areas. She received IV fluids (LR), ondansetron, acetaminophen, and potassium supplementation. Initially she was to be discharged but failed p.o. challenge due to nausea and was admitted for her hypokalemia continue monitoring evaluation Patient lives in 1 story home with . Patient is a caregiver to with dementia. Family is assisting with while patient is in hospital. Independent with ADLS and fx'l mobility prior to hospitalization. Family will assist with transportation and IADLs as needed. Subjective I need help. Instructed Patient on proper hand and foot placement to complete bed mobility from supine->sit @ EOB requiring Min A. Instructed Patient on safety awareness to complete fx'l mobility within room and toileting tasks. Patient required Min A for all transfers and CGA to maneuver safely with RW. Patient reported pain in lower back during mobility. Max A for toilet hygiene. Objective Patient Orientation Person,Place,Name,Age,Birthday ,Year Right Upper Extremity Gross ROM WFL Left Upper Extremity Gross ROM WFL Bed Mobility bed mobility - supine/sit Assist Level Minimal x 1 (25% assist) Transfer Training Sit/Stand Transfer Assist Level Minimal x 1 (25% assist) Chair Transfer Ability Minimal x 1 (25% assist) Chair Transfer Technique Sit to/from Ambulatory Rehab OT IP prob,goals,plan Problems Date of Evaluation: 08/17/24 OT IP Problems Bed Mobility,Transfers,Balance ,Self care,Safety Rehab Potential Rehab Potential Good Equipment Needs Assistive Devices None / NA Plan OT intervention Plan Bed Mobility,Transfers,Balance ,Self care,Safety,Therapeutic Exercise OT Plan Frequency Daily Duration LOS Discharge Goals Bed Mobility Ability Standby Assistance Sit to Stand Chair Transfer Ability Contact Guard/Hand Hold Chair Transfer Ability Contact Guard/Hand Hold Chair Transfer Technique Sit to/from Ambulatory Chair Transfer Assistive Devices Rolling Walker Discharge Plan OT Discharge Plan Recommend placement at this time. Son is consulting with other family members if they can provide 24/7 care for patient and her . If unable to do so, recommend skilled rehab in order to improve patient's ADLs and overall generalized strength. Eval Complexity Eval Charge Codes 07750 - Low Complexity PHYSICIAN CERTIFICATION: I certify the specified therapy services for Emma Guerrero are required, authorized, and reviewed every 30 days.
--- NOTE | 2024-08-17 12:28 | HMH.PTEV ---
Physical Therapy Evaluation Rehab PT IP Evaluation Start: 08/16/24 23:15 Freq: ONCE Status: Active Protocol: Document 08/17/24 12:22 WALI ([facility]24 12[id number] Subjective/History History History The patient is an 79-year-old female with a past medical history of hypertension, hyperlipidemia, and a recent hip replacement who takes daily aspirin. She presents with nausea, nonbloody vomiting, and nonbloody diarrhea that started upon waking this morning, accompanied by generalized malaise. She denies fever, chest pain, shortness of breath, or recent sick contacts. She describes epigastric and left upper quadrant abdominal cramping without radiation, partially relieved by Tylenol at home. On examination, she is afebrile, hemodynamically stable, appears mildly dehydrated with a capillary refill of about 3 seconds, and reports no bleeding. Her abdomen is soft and nondistended, with no peritoneal signs, but epigastric and LUQ tenderness. Initial labs show hypokalemia (K? 2.2), normal WBC, and a lipase of 267. Urinalysis is unremarkable, and COVID/flu testing is negative. A CT of the abdomen and pelvis reveals no acute intra-abdominal process but notes old sacral ala fractures and a transverse process fracture likely related to a fall two weeks ago. She remains ambulatory and is not overtly tender in those areas. She received IV fluids (LR), ondansetron, acetaminophen, and potassium supplementation. Initially she was to be discharged but failed p.o. challenge due to nausea and was admitted for her hypokalemia continue monitoring evaluation Patient lives in 1 story home with . Patient is a caregiver to with dementia. Family is assisting with while patient is in hospital. Independent with ADLS and fx'l mobility prior to hospitalization. Family will assist with transportation and IADLs as needed. Subjective Subjective Pt agrees to mobility assessment this am, but requires consistent verbal and physical cues to redirect her progress while performing all mobility assessment activities. Rehab PT IP Eval Objective Appearance Patient Behavior Appropriate,Confused Patient Orientation Person Difficulty following instructions mild Speech Pattern Clear Ambulation Patient Able to Ambulate Yes Ambulation Observation IP General Gait Pattern Observation Wide Based Gait Ambulation Distance (feet) 50 Ambulation Assistive Device Rolling Walker Ambulation Ability Contact Guard/Hand Hold Balance Ability to Arise Able, uses arms to help Sitting Balance Steady, safe Standing Balance Steady, wide stance Dynamic Sitting Balance Ability Fair Dynamic Standing Balance Ability Fair Transfers Bed Transfer Ability Contact Guard/Hand Hold Chair Transfer Ability Contact Guard/Hand Hold Sit to Stand Bed Transfer Ability Contact Guard/Hand Hold Sit to Stand Chair Transfer Ability Contact Guard/Hand Hold Rehab PT IP prob,goals,plan Problems Date of Evaluation: 08/17/24 PT IP Problems Bed Mobility,Transfers,Gait Rehab Potential Rehab Potential Good Plan PT Intervention Plan Bed Mobility,Transfers,Gait, Therapeutic Exercise PT Plan Frequency Daily Duration LOS Discharge Goals Bed Transfer Ability Supervision/Stand by Sit to Stand Chair Transfer Ability Supervision/Stand by Ambulation Assistive Device Rolling Walker Ambulation Distance (feet) 75 Discharge Plan PT Discharge Plan Pt presents with increased confusion this am and required multiple episode of redirection of activity while mobility assessment was being performed. Questionable safety understanding this date and likely unable to care for herself or her safely if she returns home at this time. Recommend short term rehab placement at this time. Skilled therapy is indicated to increase ambulation ability , improve transfers, and improve safety understanding in order to return pt to [facility]. If pt confusion clears and she meets all therapy goals she may be appropriate to return home at that time. Eval Complexity Eval Charge Codes 38643 - High Complexity PHYSICIAN CERTIFICATION: I certify the specified therapy services for Emma Guerrero are required, authorized, and reviewed every 30 days.
[2024-08-17] MEDS: PANTOPRAZOLE 40MG TABLET 40 MG PO (20:40)
[2024-08-17] MEDS: PRAVASTATIN 40MG TAB 40 MG PO (20:40)
[2024-08-17] MEDS: ROPINIROLE 1MG TABLET 0.5 MG PO (20:40)
[2024-08-18] VITALS (8 sets, daily range): BP systolic 147–190; BP diastolic 72–91; PULSE 70–100; RESP 16; TEMP 36.4–37.3; O2SAT 94–100; BMI 22.5
--- NOTE | 2024-08-18 03:26 | PC.NURSE ---
Pt. is alert and orientated x 4. Pt. on room air tolerating well. IV fluids infusing, Pt. denies any pain, SOA, [facility] Pt. up several times to bedside commode. Assist x 1. Family member at bedside. VSS, Pt. personal items and call ortiz in reach.
--- NOTE | 2024-08-18 06:34 | PC.NURSE ---
0530: Pt. woke up when IV was beeping. Pt. very anxious and confused. She was stating I ddin't do it my son does not believe me. Pt's son at bedside. He states she had a couple of episodes like this when she broke her hip. Pt. was reassured. She was trying to get out of bed. Pt. assisted to bedside commode. Pt. voided and assited back to bed. Pt. was able to calm . She was reassured several times by myself and her son. Pt. was than alert and seemed orientated. .
[2024-08-18 06:48] LABS: Hemoglobin 12.7 g/dL (12.2-16.2); Red Blood Count 4.48 M/mm3 (4.20-5.40)
[2024-08-18 06:49] LABS: Basophils % 0.5 % (0.1-2.0); Eosinophils # 0.5 K/mm3 (0.0-0.4); Eosinophils % 5.9 % (0.1-12.0); Hematocrit 36.7 % (37.0-47.0); Lymphocytes # 2.1 K/mm3 (0.7-4.5); Lymphocytes % 26.4 % (10-50); Mean Corpuscular HGB Conc 34.6 g/dL (31.8-35.4); Mean Corpuscular Hemoglobin 28.3 pg (27.0-31.2); Mean Corpuscular Volume 81.9 fl (81-99); Monocytes # 0.5 K/mm3 (0.1-1.0); Monocytes % 6.5 % (1.7-9.3); Neutrophils # 4.8 K/mm3 (1.8-7.8); Neutrophils % 60.3 % (37.0-80.0); Platelet Count 251 K/mm3 (142-424); Red Cell Distribution Width 13.4 % (11.5-17.5)
[2024-08-18 07:26] LABS: Chloride 107 mmol/L (98-107); Sodium 140 mmol/L (136-145)
[2024-08-18 07:27] LABS: Potassium 3.5 mmoL/L (3.5-5.1)
[2024-08-18 07:29] LABS: Blood Urea Nitrogen 5 mg/dl (7-17); Creatinine Clearance Estimated 42 mL/min (50-200); Estimated Glomerular Filt Rate 154 ml/min (>60); GFR (African American) 186 ML/MIN (>60)
[2024-08-18 07:30] LABS: Anion Gap 12.5 mEq/L (5-15); Calcium 8.8 mg/dl (8.4-10.2); Carbon Dioxide 24 mmol/L (22.0-30.0); Glucose 110 mg/dl (74-100)
[2024-08-18] MEDS: METOPROLOL TARTRATE 50MG TABLET 100 MG PO (09:06)
[2024-08-18] MEDS: LACTATED RINGERS 1000ML 1,000 ML 50 ML IV (09:07)
[2024-08-18] MEDS: ACETAMINOPHEN 325MG TAB 650 MG PO (09:14)
--- NOTE | 2024-08-18 12:35 | PC.NURSE ---
patient ambulated 200 feet with a rolling walker independently with staff.
[2024-08-18] MEDS: ONDANSETRON 4MG/2ML VIAL 4 MG IV (13:22)
--- NOTE | 2024-08-18 13:37 | ECG_ITS ---
APPROVED REPORT Exam: Resting ECG HR:73 bpm ECG Measurements Heart Rate 73 AXES OR 175 P 53 QRSd 132 QRS -38 QT 434 T -3 QTc 459 Conclusion SINUS RHYTHM LEFT AXIS DEVIATION [QRS AXIS < -30] RIGHT BUNDLE BRANCH BLOCK [120+ ms QRS DURATION, UPRIGHT V1, 40+ ms S IN I/aVL/V4/V5/V6] ABNORMAL ECG UNCONFIRMED REPORT Electronically signed by : Ham Payne MD 08/18/2024 20:08:09
[2024-08-18] MEDS: HYDRALAZINE 20MG/ML VIAL 10 MG IV (13:40)
--- NOTE | 2024-08-18 13:43 | CT_ITS ---
FINAL REPORT TECHNIQUE: Axial images were performed through the brain. This study was performed with techniques to keep radiation doses as low as reasonably achievable, (ALARA). Individualized dose reduction techniques using automated exposure control or adjustment of mA and/or kV according to the patient''s size were employed. CLINICAL HISTORY: lethargic, AMS COMPARISON: 08/04/2024 FINDINGS: There is mild diffuse cortical atrophy. The ventricles are normal in size for the degree of atrophy. There is low-attenuation in the anterior limb of the right internal capsule consistent with an old lacunar infarct. Findings are stable since previous. There is physiologic calcification of the basal ganglia. There is no extra-axial fluid or midline shift. There is no evidence of acute hemorrhage or mass. IMPRESSION: Atrophy and chronic appearing findings. No acute intracranial process. Reviewed, Interpreted and Dictated by Jorge Marquez MD Transcribed by Marisa Hirsch Authenticated and . [facility]
[2024-08-18 13:48] LABS: POC Glucose,Bedside 163 (70-110)
--- NOTE | 2024-08-18 17:27 | EXP.ACUTE.PN ---
Subjective *Date: 08/18/24 *Time: 22:36 Interval history: In bedside chair on morning rounds. Feeling better. No further nausea or vomiting. Ate eggs for breakfast. Was doing well. Awaiting approval for rehab. Son at bedside. After lunch however patient had some mild nausea, received a dose of Zofran and proceeded to go to the bathroom. Then became somnolent and a rapid response was called. Concern for altered mental status. Vitals obtained showing elevated blood pressure with systolic 1 90-200. Heart rate in the 70s. O2 sats in the 90s on room air. Blood sugar 160. Would awaken to sternal rub and loud voice but no meaningful response. Symptoms gradually resolved after improving blood pressure. Only medication received prior to this with Zofran. Concern for medication side effect versus complication of hypertension. CT of head obtained showing no acute process. Symptoms resolved after about an hour. Patient back to baseline. Medical Exam Vital signs and Labs for Last 24 Hours: Vital Signs Temp Pulse Pulse Resp BP Pulse Ox O2 Del Method 08/18/24 16:00 80 08/18/24 16:00 99.1 F 71 16 173/74 H 96 08/18/24 15:00 Room Air 08/18/24 12:33 Room Air 08/18/24 12:00 70 08/18/24 11:00 Room Air 08/18/24 09:00 Room Air 08/18/24 08:00 85 08/18/24 08:00 Room Air 08/18/24 08:00 98.1 F 100 H 16 187/81 H 100 08/18/24 07:00 Room Air 08/18/24 05:00 Room Air 08/18/24 04:00 80 08/18/24 03:00 Room Air 08/18/24 01:00 Room Air 08/18/24 00:00 80 08/18/24 00:00 98.8 F 79 16 148/74 H 95 Room Air 08/17/24 23:00 Room Air 08/17/24 21:00 Room Air 08/17/24 20:00 Room Air 08/17/24 20:00 75 08/17/24 20:00 98.4 F 80 16 159/80 H 94 L Room Air 08/17/24 18:45 Room Air Intake and Output 08/18/24 08/18/24 08/18/24 07:59 15:59 23:59 Intake Total 640 / 1360 720 / 1360 Output Total 0 / 0 0 / 0 Balance 640 / 1360 720 / 1360 Intake: Intake, Oral Amount 240 / 960 720 / 960 Intake, Total IV Amount 400 / 400 Lactated Ringers 1000ML 1,000 400 / 400 ml @ 50 mls/hr IV .Q20H [facility] Rx# :[id number] Output: Output, Urine Amount 0 / 0 0 / 0 Other: Number of Voids 4 Number of Unmeasured Voids 1 0 Weight 59.83 kg Patient Weight 08/18/24 23:59 Weight 59.83 kg Laboratory Results - last 24 hr 08/18/24 06:10: WBC 8.0, RBC 4.48, Hgb 12.7, Hct 36.7 L, MCV 81.9, MCH 28.3, MCHC 34.6, RDW 13.4, Plt Count 251, MPV 12.0 H, Neut % (Auto) 60.3, Lymph % (Auto) 26.4, [place] % (Auto) 6.5, Eos % (Auto) 5.9, Baso % (Auto) 0.5, Neut # (Auto) 4.8, Lymph # (Auto) 2.1, [place] # (Auto) 0.5, Eos # (Auto) 0.5 H, Baso # (Auto) 0.0, Sodium 140, Potassium 3.5, Chloride 107, Carbon Dioxide 24, Anion Gap 12.5, BUN 5 L D, Creatinine 0.40 L, Estimated Creat Clear 42, Estimated GFR 154, Est GFR ( Amer) 186, Glucose 110 H, Calcium 8.8 08/18/24 13:40: POC Glucose 163 H I & O for Labs for Last 24 Hours: Intake & Output 08/15/24 08/16/24 08/17/24 08/18/24 23:59 23:59 23:59 23:59 Intake Total 1843 / 2483 1360 / 1360 Output Total 650 / 650 0 / 0 Balance 1193 / 1833 1360 / 1360 Weight 59.92 kg 59.92 kg 59.83 kg Constitutional: Present no acute distress, average body habitus, chronically ill appearing and cooperative Head: Present atraumatic and normocephalic ENT: Present normal exam Respiratory: Present normal respiratory effort; Absent rhonchi, wheezes or crackles Cardiac: Present Reg Rate and Rhythm GI: Present soft and normal bowel sounds; Absent distention or tenderness Extremities: Present normal inspection and full ROM Skin: Present intact; Absent erythema Neuro: Present Grossly Intact, alert, awake and moves all extremities Assessment and Plan *Assessment and plan (1) Nausea vomiting and diarrhea: Status: Acute Category: Medical Code(s): R11.2 - Nausea with vomiting, unspecified; R19.7 - Diarrhea, unspecified (2) Hypertension: Status: Acute Category: Medical Code(s): I10 - Essential (primary) hypertension (3) Hypokalemia: Status: Acute Category: Medical Code(s): E87.6 - Hypokalemia (4) Acute dehydration: Status: Acute Category: Medical Code(s): E86.0 - Dehydration (5) Anemia: Status: Acute Qualifiers: Anemia type: unspecified type Qualified Code(s): D64.9 - Anemia, unspecified Category: Medical Code(s): D64.9 - Anemia, unspecified (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 Also found to have elevated blood pressure. Showing improvement. Had episode today however of altered mental status after receiving Zofran. CT of head was unremarkable, blood sugar normal. Blood pressure also severely elevated. Symptoms resolved and back to baseline mentation. Will monitor overnight. Problems addressed as follows: Nausea and vomiting Hypokalemia -Nausea and vomiting doing better. Discontinue Zofran given episode. Potassium improved to 3.5, kidney function normal BUN 5, creatinine 0.4. -Repeat labs ordered for the morning with CBC, CMP, magnesium. Will replace per electrolyte protocol -Tolerating p.o. intake. -Consider Phenergan for any further nausea or emesis. Hypertension - Tolerating metoprolol tartrate 100 mg p.o. daily. Trend patient to 50 mg twice daily -Continue hydralazine 10 mg IV every 4 hours as needed for systolic greater than 170. -Initiate irbesartan 75 mg daily -Goal blood pressure systolic less than 150. Continue ropinirole 0.5 mg nightly and methocarbamol 750 mg 3 times a day as needed. Continue pantoprazole 40 mg nightly for GERD Continue pravastatin 40 mg daily for hyperlipidemia Full code Regular diet Awaiting placement at [facility]. Will monitor overnight given her episode today. If remains stable, anticipate discharge tomorrow.
--- NOTE | 2024-08-18 18:00 | PC.NURSE ---
SRNA helped patient to bedside commode. patient stated she felt nauseous and like shes gonna be sick I administered PRN zofran per SEP. after administering i left patient room, SRNA and family were at bedside while patient was still on BSC. SRNA notified me that the patient was passing out I quickly went to patient room along with the nurse rail manager. A rapid response was called at 1329 due to the patient being very lethargic and not answering questions. MD at bedside at 1330 assessing patient. EKG was obtained at 1335, vitals taken at 1337, blood pressure 205/95, HR 75, o2 94% RA, IV hydralazine administered per MD and per SEP. 1340 blood pressure 194/93, HR 75, o2 95%, glucose 163. 1443 CT of head was ordered, [address] by med surg staff, blood pressure at this time 177/83. while patient was in CT she became more awake and began answering questions. patient stated she didn't know what happened . explained to patient she was getting a CT scan, patient was able to verbalize understanding but she was still frightened by what had occurred. CTA was unable to be obtained due to IV infiltrating and unable to obtain. another IV after [address] of head was obtained. upon arrival back to the patients room blood pressure was 153/82. Patient is currently sitting up in bed eating supper. family at bedside, call light within reach
[2024-08-18] MEDS: PANTOPRAZOLE 40MG TABLET 40 MG PO (21:56)
[2024-08-18] MEDS: PRAVASTATIN 40MG TAB 40 MG PO (21:56)
[2024-08-18] MEDS: ROPINIROLE 1MG TABLET 0.5 MG PO (21:56)
[2024-08-19 04:00] VITALS: BP 157/76; PULSE 98; RESP 16; TEMP 36.8; O2SAT 94
--- NOTE | 2024-08-19 04:52 | PC.NURSE ---
Pt has been A/O X 3 this shift. She has denied pain or SOA or weakness through the night. She has been voiding using bedpan/brief. She has denied feeling increased weakness or feeling dizzy, faint. VS have been WNL for pt . She did have one elevated BP at SD however, upon recheck BP improved with no need for prn meds. No further complaints of nausea.
[2024-08-19 06:18] LABS: Basophils # 0.1 K/mm3 (0-0.2); Basophils % 0.6 % (0.1-2.0); Eosinophils # 0.4 K/mm3 (0.0-0.4); Eosinophils % 4.4 % (0.1-12.0); Hematocrit 39.9 % (37.0-47.0); Hemoglobin 13.1 g/dL (12.2-16.2); Lymphocytes # 1.9 K/mm3 (0.7-4.5); Mean Corpuscular HGB Conc 32.8 g/dL (31.8-35.4); Mean Corpuscular Hemoglobin 26.7 pg (27.0-31.2); Mean Corpuscular Volume 81.3 fl (81-99); Mean Platelet Volume 11.7 fl (7.4-10.4); Monocytes # 0.6 K/mm3 (0.1-1.0); Monocytes % 7.5 % (1.7-9.3); Neutrophils % 63.1 % (37.0-80.0); Platelet Count 296 K/mm3 (142-424); Red Blood Count 4.91 M/mm3 (4.20-5.40); Red Cell Distribution Width 13.6 % (11.5-17.5); White Blood Count 7.9 K/mm3 (4.8-10.8)
[2024-08-19 06:27] LABS: Albumin Level 4.2 g/dl (3.5-5.0); Chloride 105 mmol/L (98-107); Potassium 3.6 mmoL/L (3.5-5.1); Sodium 139 mmol/L (136-145)
[2024-08-19 06:29] LABS: Blood Urea Nitrogen 7 mg/dl (7-17); Creatinine Clearance Estimated 42 mL/min (50-200); Estimated Glomerular Filt Rate 154 ml/min (>60); GFR (African American) 186 ML/MIN (>60)
[2024-08-19 06:30] LABS: Alanine Aminotransferase 18 U/L (12-78); Albumin/Globulin Ratio 1.8 (1.1-1.8); Alkaline Phosphatase 176 U/L (38-126); Anion Gap 14.6 mEq/L (5-15); Aspartate Amino Transferase 28 U/L (14-36); Bilirubin,Total 0.6 mg/dl (0.2-1.3); Calcium 8.7 mg/dl (8.4-10.2); Carbon Dioxide 23 mmol/L (22.0-30.0); Globulin 2.4 g/dL (1.3-3.2); Glucose 117 mg/dl (74-100); Magnesium 1.9 mg/dl (1.6-2.3); Phosphorous 3.4 mg/dl (2.5-4.5); Total Protein,Serum 6.6 g/dl (6.3-8.2)
[2024-08-19 08:00] VITALS: BP 133/78; PULSE 109; PULSE 110; RESP 18; TEMP 36.8; O2SAT 96
--- NOTE | 2024-08-19 08:21 | P.DS_ITS ---
General Admission date:: 08/16/24 Discharge date: 08/19/24 HPI HPI HPI: The patient is an 79-year-old female with a past medical history of hypertension, hyperlipidemia, and a recent hip replacement who takes daily aspirin. She presents with nausea, nonbloody vomiting, and nonbloody diarrhea that started upon waking this morning, accompanied by generalized malaise. She denies fever, chest pain, shortness of breath, or recent sick contacts. She describes epigastric and left upper quadrant abdominal cramping without radiation, partially relieved by Tylenol at home. On examination, she is afebrile, hemodynamically stable, appears mildly dehydrated with a capillary refill of about 3 seconds, and reports no bleeding. Her abdomen is soft and nondistended, with no peritoneal signs, but epigastric and LUQ tenderness. Initial labs show hypokalemia (K? 2.2), normal WBC, and a lipase of 267. Urinalysis is unremarkable, and COVID/flu testing is negative. A CT of the abdomen and pelvis reveals no acute intra-abdominal process but notes old sacral ala fractures and a transverse process fracture likely related to a fall two weeks ago. She remains ambulatory and is not overtly tender in those areas. She received IV fluids (LR), ondansetron, acetaminophen, and potassium supplementation. Initially she was to be discharged but failed p.o. challenge due to nausea and was admitted for her hypokalemia continue monitoring evaluation Hospital Course Hospital Course Hospital Course: 79-year-old female who presented with nausea, vomiting, hypokalemia. Also found to have elevated blood pressure. Showed improvement during admission. Nausea and vomiting resolved. Potassium improved. Tolerating p.o. intake. Blood pressure elevated for which adjustments were made to her regimen to help control this. Work with therapy during admission. Given her clinical improvement, was denied for rehab. Will discharge home with home health. Stable to discharge at this time. Problems addressed as follows: Nausea and vomiting Hypokalemia -Presented with nausea, vomiting, dehydration and hypokalemia. Was initiated on antiemetics. Diet slowly advanced. Saw improvement in p.o. intake and improvement in kidney function. Kidney function normalized by day of discharge with BUN of 7, creatinine 0.4. Potassium doing better between 3.5 and 4 on the days before discharge. Magnesium normal at 1.9. White count remained normal at 7.9. Did have an episode after receiving Zofran concerning for Zofran causing s omnolence/confusion. Would recommend avoiding Zofran in the future for nausea and vomiting. Patient did not require any further antiemetics after that dose of Zofran. Has returned to baseline mentation. Workup with CT of head negative for stroke. Vitals remain normal. Stable to discharge home with therapy. Has support at home with and family who lives close by Hypertension - Tolerating metoprolol tartrate 100 mg p.o. daily. Transitioned to 50 mg twice daily. Initiated on irbesartan 75 mg daily for elevated blood pressure. Short time of discharge at 137/70. Needs follow-up with PCP in the next 1 to 2 weeks to make further adjustments. Continue ropinirole 0.5 mg nightly and methocarbamol 750 mg 3 times a day as needed. Continue pantoprazole 40 mg nightly for GERD Continue pravastatin 40 mg daily for hyperlipidemia Total time spent on discharge 32 minutes in counseling, documentation, chart review, and direct care with patient. Exam Data for Last 24 hours Vital signs and Labs for Last 24 Hours: Temp Pulse Resp BP Pulse Ox O2 Del Method 98.2 F 98 H 16 157/76 H 94 L Room Air 08/19/24 04:00 08/19/24 04:00 08/19/24 04:00 08/19/24 04:00 08/19/24 04:00 08/19/24 06:51 Laboratory Results - last 24 hr 08/18/24 13:40: POC Glucose 163 H 08/19/24 06:00: WBC 7.9, RBC 4.91, Hgb 13.1, Hct 39.9, MCV 81.3, MCH 26.7 L, MCHC 32.8, RDW 13.6, Plt Count 296, MPV 11.7 H, Neut % (Auto) 63.1, Lymph % (Auto) 24.0, [place] % (Auto) 7.5, Eos % (Auto) 4.4, Baso % (Auto) 0.6, Neut # (Auto) 5.0, Lymph # (Auto) 1.9, [place] # (Auto) 0.6, Eos # (Auto) 0.4, Baso # (Auto) 0.1, Sodium 139, Potassium 3.6, Chloride 105, Carbon Dioxide 23, Anion Gap 14.6, BUN 7 D, Creatinine 0.40 L, Estimated Creat Clear 42, Estimated GFR 154, Est GFR ( Amer) 186, Glucose 117 H, Calcium 8.7, Phosphorus 3.4, Magnesium 1.9 D, Total Bilirubin 0.6, AST 28, ALT 18, Alkaline Phosphatase 176 H, Total Protein 6.6, Albumin 4.2, Globulin 2.4, Albumin/Globulin Ratio 1.8 I & O for Last 24 hours: Intake & Output 08/16/24 08/17/24 08/18/24 08/19/24 23:59 23:59 23:59 23:59 Intake Total 1843 / 2483 2048 Output Total 650 / 650 0 / 0 0 / 0 Balance 1193 / 1833 2048 0 / 0 Weight 59.92 kg 59.92 kg 59.83 kg Constitutional Constitutional: no acute distress, thin, chronically ill appearing and cooperative *Routine HEENT Exam Head: Present normocephalic Eye: Present EOMI and PERRL ENT: Present mucous membranes moist *Routine Neck Exam Neck: Present supple; Absent lymphadenopathy *Routine Respiratory Exam Respiratory: Present CTA bilaterally; Absent rhonchi, wheezes or crackles *Routine Cardiovascular Exam Cardiovascular: Present RRR *Routine Abdominal Exam Abdominal: Present soft and normoactive bowel sounds; Absent tenderness *Routine Rectal Exam Patient deferred: visual exam *Routine Exam Patient deferred: external exam *Routine Extremities Exam Extremities: Absent cyanosis, clubbing or edema *Routine Skin Exam Skin: Present intact and warm; Absent rash *Routine Neurological Exam Neurological: Present alert, oriented X3 and moving all extremities; Absent altered mental status Results Data Completed and Pending Labs on day of discharge: Labs from last 24 hours 08/19/24 08/18/24 06:00 13:40 WBC 7.9 RBC 4.91 Hgb 13.1 Hct 39.9 MCV 81.3 MCH 26.7 L MCHC 32.8 RDW 13.6 Plt Count 296 MPV 11.7 H Neut % (Auto) 63.1 Lymph % (Auto) 24.0 [place] % (Auto) 7.5 Eos % (Auto) 4.4 Baso % (Auto) 0.6 Neut # (Auto) 5.0 Lymph # (Auto) 1.9 [place] # (Auto) 0.6 Eos # (Auto) 0.4 Baso # (Auto) 0.1 Sodium 139 Potassium 3.6 Chloride 105 Carbon Dioxide 23 Anion Gap 14.6 BUN 7 D Creatinine 0.40 L Estimated Creat Clear 42 Estimated GFR 154 Est GFR ( Amer) 186 Glucose 117 H POC Glucose 163 H Calcium 8.7 Phosphorus 3.4 Magnesium 1.9 D Total Bilirubin 0.6 AST 28 ALT 18 Alkaline Phosphatase 176 H Total Protein 6.6 Albumin 4.2 Globulin 2.4 Albumin/Globulin Ratio 1.8 DS: Diagnosis Discharge Diagnosis (1) Nausea vomiting and diarrhea: Status: Acute Code(s): R11.2 - Nausea with vomiting, unspecified; R19.7 - Diarrhea, unspecified (2) Hypertension: Status: Acute Code(s): I10 - Essential (primary) hypertension (3) Hypokalemia: Status: Acute Code(s): E87.6 - Hypokalemia (4) Acute dehydration: Status: Acute Code(s): E86.0 - Dehydration (5) Anemia: Status: Acute Code(s): D64.9 - Anemia, unspecified Qualifiers: Anemia type: unspecified type Qualified Code(s): D64.9 - Anemia, unspecified (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): Status: Acute Code(s): I45.2 - Bifascicular block Meds Home Medications and Allergies Home Medications ?Medication ?Instructions ?Recorded ?Confirmed ?Type cholecalciferol (vitamin D3) 1,250 50,000 unit PO WEEKLY 10/16/20 08/17/24 History mcg (50,000 unit) capsule omeprazole 40 mg capsule,delayed 40 mg PO DAILY 10/16/20 08/17/24 History release simvastatin 20 mg tablet 20 mg PO HS 10/16/20 08/17/24 History naproxen 500 mg tablet 500 mg PO BID #20 tabs 08/04/24 08/17/24 Rx methocarbamol 750 mg tablet 750 mg PO Q8H PRN Muscle Pain 08/17/24 08/17/24 History ropinirole 0.5 mg tablet 0.5 mg PO HS 08/17/24 08/17/24 History diphenhydramine HCl 25 mg tablet 25 mg PO DAILY PRN Allergy 08/19/24 08/17/24 Rx symptoms #30 tabs irbesartan 75 mg tablet 75 mg PO DAILY #30 tabs 08/19/24 Rx metoprolol tartrate 50 mg tablet 50 mg PO BID 30 days #60 tabs 08/19/24 Rx New Prescriptions to Start Prescriptions: Isrrael Deras metoprolol tartrate Isrrael Kunz Allergies Allergy/AdvReac Type Severity Reaction Status Date / Time ondansetron Allergy Severe Confusion Verified 08/19/24 11:11 Penicillins Allergy Unknown Verified 08/16/24 17:56 allergy reaction Sulfa (Sulfonamide Allergy Unknown Verified 08/16/24 17:56 Antibiotics) allergy reaction oxycodone (From Percocet) AdvReac Mild Flushing Verified 08/16/24 17:56 Discharge Plan Disposition Patient Disposition: Home Health Service Condition: Good Discharge Order Discharge Orders: Discharge Order (Routine); Ordered 08/19/24 Ordered By: Isrrael Kunz Follow up Plan Follow up with: Jennifer Nava APRN [Primary Care Provider] - Enter time for follow up (office to call with appointment) Prescriptions/Medication Reconciliation: New metoprolol tartrate 50 mg Tablet 50 mg PO BID 30 Days Qty: 60 0RF irbesartan 75 mg Tablet 75 mg PO DAILY Qty: 30 0RF Continued ropinirole 0.5 mg tablet 0.5 mg PO HS Patient Comments: TAKE ONE (1) TABLET EVERY DAY BY ORAL ROUTE AT BEDTIME FOR 30 DAYS. methocarbamol 750 mg tablet 750 mg PO Q8H PRN (Reason: Muscle Pain) omeprazole 40 MG capsule,delayed release(DR/EC) 40 mg PO DAILY simvastatin 20 MG tablet 20 mg PO HS cholecalciferol (vitamin D3) 1,250 MCG capsule 50,000 unit PO WEEKLY naproxen 500 mg tablet 500 mg PO BID Qty: 20 0RF Changed diphenhydramine HCl 25 MG tablet 25 mg PO DAILY PRN (Reason: Allergy symptoms) Qty: 30 0RF Discontinued metoprolol tartrate 100 mg tablet 100 mg PO DAILY Problem Reconciliation Problems Reviewed?: Yes Patient Discharge Instructions ACTIVITY: Continue current activity DIET: continue same diet Patient Instructions: DI for Dehydration -- Adult, DI for Hypokalemia Print Language: Yoruba Providers Primary Care Provider: Jennifer Nava Admit Provider: Nik Dumont Attending Provider: Nik Dumont
[2024-08-19] MEDS: IRBESARTAN 75MG TABLET 75 MG PO (09:07)
[2024-08-19] MEDS: METOPROLOL TARTRATE 50MG TABLET 50 MG PO (09:07)
[2024-08-19 12:00] VITALS: BP 137/70; PULSE 70; PULSE 79; RESP 16; TEMP 36.8; O2SAT 98
--- NOTE | 2024-08-20 10:11 | SW/DCPLANNER ---
Spoke with patient on the phone. Patient stated that she has not called to schedule an upcoming appointment with her primary care provider but will do that today. Patient stated that her daughter in law was able to hand picker her new medicine. Patient stated that she has no concerns or questions at this time. Eren Robertson
== END 2024-08-19 12:47 | disposition home health service (06) ==
LOC: ER 18:41 → 2ND 22:30 → ER 22:37
PROVIDERS: Internal Medicine Adolescent Medicine; Nurse Practitioner Family; Admitting Provider Student in an Organized Health Care Education/Training Program; Emergency Provider Emergency Medicine; PCP Nurse Practitioner Family; Visit Provider Student in an Organized Health Care Education/Training Program
DX: E87.6 Hypokalemia (principal); E86.0 Dehydration; R11.2 Nausea with vomiting, unspecified; R19.7 Diarrhea, unspecified; I10 Essential (primary) hypertension; D64.9 Anemia, unspecified; M54.16 Radiculopathy, lumbar region; S32.058A Other fracture of fifth lumbar vertebra, initial encounter for closed fracture; S32.110A Nondisplaced Zone I fracture of sacrum, initial encounter for closed fracture; K21.9 Gastro-esophageal reflux disease without esophagitis; Z79.82 Long term (current) use of aspirin; Z79.899 Other long term (current) drug therapy; Z91.81 History of falling
CPT/HCPCS: 36415; 70450; 74177; 80048; 80053; 81001; 82962; 83605; 83690; 83735; 84100; 84703; 85025; 86803; 87389; 87636; 93005; 97163; 97165; 97530; 99291; G0378; J0360; J2405; J3475; J7120; Q9967

== ENCOUNTER 2025-04-15 15:03 | Outpatient (CLI) | payer MEDICARE, SELFPAY ==
--- NOTE | 2025-04-15 15:05 | CA_ITS ---
APPROVED REPORT EXAM: Comprehensive 2D, Doppler, and color-flow Echocardiogram Fish Pitcher: BRYAN Acosta, RVS Ht: 5 ft 2 in Wt: 140lbs BSA: 1.64 BP: 136/80 mmHg Rhythm: Irregular Indications: Murmur, Pre-op assessment, HTN 2D Dimensions Left Atrium 2.81 cm LA Volume 65.80 mL LA Volume Index 39.20 mL/m2 (M/F) 16-34 M-Mode Dimensions RVDd 1.91 cm (0.9-2.6) LA Diam 3.74 cm (1.9-4.0) LVDd 5.03 cm (3.5-5.7) LVDs 3.16 cm (3.5-5.7) IVSd 1.30 cm (0.6-1.1) PWd 1.18 cm (0.6-1.1) EF (Teich) 66.90% EPSs 1.37 cm FS 37.20% EDV (Teich) 119.90 mL ESV (Teich) 39.70 mL LV Diastology E Decel Time 210 (160-240 msec) E/A Ratio 0.59 MED A' 4.90 cm/s LAT A' 4.60 cm/s Aortic Valve SHERIN Index 0.68 cm2/m2 AoV Peak Talon. 297.0 (50-130 cm/s) AI PHT 651.00 ms AO Peak GR. 35.20 mmHg AO Mean GR. 17.40 (<5 mmHg) AO VTI 55.1 (18-25 cm) SHERIN (VTI) 1.14 (2.5-4.5 cm2) Mitral Valve MV A Velocity 129.0 (40-130 cm/s) E/A Ratio 0.59 Tricuspid Valve TR P. Velocity 16.00 cm/s Left Ventricle The left ventricle is normal size. Left ventricular systolic function is normal. The left ventricular ejection fraction is within the normal range. There is increased left ventricular wall thickness. There is normal LV segmental wall motion. Transmitral Doppler flow pattern suggests impaired LV relaxation. LVEF is 55%. Right Ventricle The right ventricle is normal size. The right ventricular systolic function is normal. Atria The left atrium is mildly dilated. The right atrium is mildly dilated. There is no color Doppler evidence of interatrial shunt. Aortic Valve The aortic valve is mildly thickened. Moderate aortic stenosis is present. SHERIN by continuity equation is 1.2 cm2. Peak velocity 3.0 m/s. Mean AV gradient 18 mmHg. Max AV gradient 35 mmHg. Mild aortic regurgitation is present. Mitral Valve The mitral valve is normal in structure. No evidence of mitral valve stenosis. Mild mitral regurgitation is present. Tricuspid Valve The tricuspid valve leaflets are thin and pliable. Trace tricuspid regurgitation. There is insufficient TR jet to estimate RVSP. Pulmonic Valve The pulmonary valve is grossly normal in structure. Trace pulmonic valve regurgitation is present. Great Vessels The aortic root is normal in size. IVC is normal in size and collapses >50% with inspiration. Pericardium There is no pericardial effusion. Other Information Study Quality: Fair Conclusion Normal biventricular systolic function. Mild biatrial dilation. Moderate (SHERIN by continuity equation is 1.2 cm2. Peak velocity 3.0 m/s. Mean AV gradient 18 mmHg. Max AV gradient 35 mmHg). Mild AI, mild MR. Electronically signed by : Charla Bergeron MD 04/17/2025 23:35:29
--- OUTSIDE RECORDS SUMMARY | 2025-04-15 15:06 | XMS_ITS | Continuity of Care Document ---
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 Plan of Treatment Reminders Order Date Submit Date Provider Last Modified By Organization Details Last Modified Time Details Appointments None recorded. Lab CBC w/ auto diff 2024 025 KESHENA [facility], [address], Kristian [address], [place], [address], 06:10:46 BMP, serum or plasma 2024 025 KESHENA [facility], [address], [address], [place], [address], 06:10:47 Referral None recorded. Procedures None recorded. Surgeries None recorded. Imaging electrocard iogram 2024 025 [facility], [address] [place] [address], [address], 17:55:07 US, echocardiog britta 2024 025 [facility] ([facility]), [address], [place], [address], 10:33:20 Medication Orders None recorded. Patient TargetsNo targets recorded. Patient InstructionsNo instructions recorded. Reason for Referral None Reported. Results Created Date Observation Date Name Description Value Unit Range Abnormal Flag Note LastModifiedBy Organization Detail LastModifiedTime 04/13/20 25 04/14/2025 CBC WITH DIFFE RENTI AL/PL ATELE T WBC 5.1 x10e3 /uL 3.4-10 .8 normal Not Available [facility] ([facility]) [address] [facility], [place], [address], 04/14/2025 06:10:46 04/13/20 25 04/14/2025 CBC WITH DIFFE RENTI AL/PL ATELE T RBC 4.05 x10e6 /uL 3.77-5 .28 normal Not Available [facility] ([facility]) [address] [place], [address], 04/14/2025 06:10:46 04/13/20 25 04/14/2025 CBC WITH DIFFE RENTI AL/PL ATELE T hemoglobin 12.9 g/dL 11.1-1 5.9 normal Not Available [facility] ([facility]) [address] [place], [address], 04/14/2025 06:10:46 04/13/20 25 04/14/2025 CBC WITH DIFFE RENTI AL/PL ATELE T hematocrit 34.4 % 34.0-4 6.6 normal Not Available [facility] ([facility]) [address] [place], [address], 04/14/2025 06:10:46 04/13/20 25 04/14/2025 CBC WITH DIFFE RENTI AL/PL ATELE T MCV 85 fL 79-97 normal Not Available [facility] ([facility]) [address] [place], [address], 04/14/2025 06:10:46 04/13/20 25 04/14/2025 CBC WITH DIFFE RENTI AL/PL ATELE T MCH 31.9 pg 26.6-3 3.0 normal Not Available [facility] ([facility]) [address] [place], [address], 04/14/2025 06:10:46 04/13/20 25 04/14/2025 CBC WITH DIFFE RENTI AL/PL ATELE T MCHC 37.5 g/dL 31.5-3 5.7 above high normal Not Available [facility] ([facility]) [address] [facility], [place], [address], 04/14/2025 06:10:46 04/13/20 25 04/14/2025 CBC WITH DIFFE RENTI AL/PL ATELE T RDW 13.0 % 11.7-1 5.4 Not Available [facility] ([facility]) [address] [facility], [place], [address], 04/14/2025 06:10:46 04/13/20 25 04/14/2025 CBC WITH DIFFE RENTI AL/PL ATELE T platelets 216 x10e3 /uL 150-45 0 normal Not Available [facility] ([facility]) [address] [facility], [place], [address], 04/14/2025 06:10:46 04/13/20 25 04/14/2025 CBC WITH DIFFE RENTI AL/PL ATELE T neutrophils 37 % not estab. normal Not Available [facility] ([facility]) [address] [facility], [place], [address], 04/14/2025 06:10:46 04/13/20 25 04/14/2025 CBC WITH DIFFE RENTI AL/PL ATELE T lymphs 52 % not estab. normal Not Available [facility] ([facility]) [address] [facility], [place], [address], 04/14/2025 06:10:46 04/13/20 25 04/14/2025 CBC WITH DIFFE RENTI AL/PL ATELE T monocytes 8 % not estab. normal Not Available [facility] ([facility]) [address] [facility], [place], [address], 04/14/2025 06:10:46 04/13/20 25 04/14/2025 CBC WITH DIFFE RENTI AL/PL ATELE T eos 2 % not estab. normal Not Available [facility] ([facility]) [address] [facility], [place], [address], 04/14/2025 06:10:46 04/13/20 25 04/14/2025 CBC WITH DIFFE RENTI AL/PL ATELE T basos 1 % not estab. normal Not Available [facility] ([facility]) [address] 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, [place], [address], 04/14/2025 06:10:46 04/13/20 25 04/14/2025 CBC WITH DIFFE RENTI AL/PL ATELE T neutrophils (absolute) 1.9 x10e3 /uL 1.4-7. 0 normal Not Available [facility] ([facility]) [address] [place], [address], 04/14/2025 06:10:46 04/13/20 25 04/14/2025 CBC WITH DIFFE RENTI AL/PL ATELE T lymphs (absolute) 2.7 x10e3 /uL 0.7-3. 1 normal Not Available [facility] ([facility]) [address] [place], [address], 04/14/2025 06:10:46 04/13/20 25 04/14/2025 CBC WITH DIFFE RENTI AL/PL ATELE T monocytes(ab solute) 0.4 x10e3 /uL 0.1-0. 9 normal Not Available [facility] ([facility]) [address] [place], [address], 04/14/2025 06:10:46 04/13/20 25 04/14/2025 CBC WITH DIFFE RENTI AL/PL ATELE T eos (absolute) 0.1 x10e3 /uL 0.0-0. 4 normal Not Available [facility] ([facility]) [address] [facility], [place], [address], 04/14/2025 06:10:46 04/13/20 25 04/14/2025 CBC WITH DIFFE RENTI AL/PL ATELE T baso (absolute) 0.0 x10e3 /uL 0.0-0. 2 normal Not Available [facility] ([facility]) [address] [facility], [place], [address], 04/14/2025 06:10:46 04/13/20 25 04/14/2025 CBC WITH DIFFE RENTI AL/PL ATELE T immature granulocytes 0 % not estab. Not Available [facility] ([facility]) [address] [facility], [place], [address], 04/14/2025 06:10:46 04/13/20 25 04/14/2025 CBC WITH DIFFE RENTI AL/PL ATELE T immature grans (abs) 0.0 x10e3 /uL 0.0-0. 1 Not Available [facility] ([facility]) [address] 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, [place], [address], 04/14/2025 06:10:46 04/13/20 25 04/14/2025 BASIC METAB OLIC PANEL (8) glucose 97 mg/dL 70-99 normal Not Available [facility] ([facility]) [address] [place], [address], 04/14/2025 06:10:47 04/13/20 25 04/14/2025 BASIC METAB OLIC PANEL (8) BUN 6 mg/dL 8-27 below low normal Not Available [facility] ([facility]) [address] [place], [address], 04/14/2025 06:10:47 04/13/2004/14/2025 BASIC METAB OLIC PANEL (8) creatinine 0.51 mg/dL 0.57-1 .00 below low normal Not Available [facility] ([facility]) [address] [place], [address], 04/14/2025 06:10:47 04/13/20 25 04/14/2025 BASIC METAB OLIC PANEL (8) eGFR 94 mL/mi n/1.7 3 >59 normal Not Available [facility] ([facility]) [address] [place], [address], 04/14/2025 06:10:47 04/13/20 25 04/14/2025 BASIC METAB OLIC PANEL (8) BUN/creatini ne ratio 12 12-28 normal Not Available [facility] ([facility]) [address] [place], [address], 04/14/2025 06:10:47 04/13/20 25 04/14/2025 BASIC METAB OLIC PANEL (8) sodium 144 mmol/ L 134-14 4 normal Not Available [facility] ([facility]) [address] [place], [address], 04/14/2025 06:10:47 04/13/20 25 04/14/2025 BASIC METAB OLIC PANEL (8) potassium 3.1 mmol/ L 3.5-5. 2 below low normal Not Available [facility] ([facility]) [address] [facility], [place], [address], 04/14/2025 06:10:47 04/13/20 25 04/14/2025 BASIC METAB OLIC PANEL (8) chloride 102 mmol/ L 96-106 normal Not Available [facility] ([facility]) [address] [facility], [place], [address], 04/14/2025 06:10:47 04/13/20 25 04/14/2025 BASIC METAB OLIC PANEL (8) carbon dioxide, total 24 mmol/ L 20-29 normal Not Available [facility] ([facility]) [address] [facility], [place], [address], 04/14/2025 06:10:47 04/13/20 25 04/14/2025 BASIC METAB OLIC PANEL (8) calcium 9.6 mg/dL 8.7-10 .3 normal Not Available [facility] ([facility]) [address] [facility], [place], [address], 04/14/2025 06:10:47 04/01/20 25 04/01/2025 elect rocar diogr am No observ ation record ed. [address], [address], 04/02/2025 08:38:57 04/02/20 25 04/01/2025 elect rocar diogr am No observ ation record ed. [email or web address] [address], [address], 04/06/2025 14:35:42 04/07/20 CT, face, w/o contr ast No observ ation record ed. [address], [place], [address], 04/09/2025 13:21:48 04/07/[address], head, w/o contr ast No observ ation record ed. [facility] [address] [facility], [place], [address], 04/09/2025 13:21:48 04/13/20 25 04/15/2025 elect rocar diogr am No observ ation record ed. [address], [address], 04/15/2025 08:55:45 04/13/20 25 04/13/2025 elect rocar diogr am No observ ation record ed. [address], [address], 04/13/2025 17:55:07 Result Notes None recorded. Problems Name Problem SNOMED Code Status Onset Date Resolution Date Notes Provider Name and Address Organization Details Recorded Time Hypertensive disorder 00269442 Active Anna villasenor [place] - [facility] 11:26:49 Hyperlipidemi a 21652847 Active Anna villasenor [place] - [facility] 11:27:40 Vitamin D deficiency 94826825 Active 2021 Espinoza Nava APRN [address], [place], [address] , [place] - [facility] 14:21:11 Restless legs syndrome 46322429 Active 2021 Espinoza Nava APRN [address], [place], [address] , [place] - [facility] 2 14:27:46 Prediabetes 928919937 Active 2022 Espinoza Nava APRN [address], [place], [address] , [facility] - [facility] 3 10:39:52 Problem Notes None recorded. Procedures Surgical History Date Name Laterality Status Provider Name and Address Organization Details Recorded Time 03/09/20 Advance Care Planning completed Anna Guerrero [place] - [facility] 03/09/2025 16:08:28 03/09/20 25 Functional Status Assessed completed Anna Yolanda [place] - [facility] 03/09/2025 16:08:28 08/28/19 25 Medication Reconcilliation completed Anna Yolanda [place] - [facility] 08/28/2024 08:40:02 03/19/20 24 Medication Reconcilliation completed Anna Guerrero [place] - [facility] 03/19/2024 10:14:46 02/19/20 24 partial left hip replacement by prosthesis completed Anna Guerrero [place] - [facility] 03/19/2024 10:19:16 11/22/19 24 Advance Care Planning completed Anna Guerrero [place] - [facility] 11/22/2023 10:19:40 11/22/19 24 Functional Status Assessed completed Anna Guerrero [place] - [facility] 11/22/2023 10:19:40 10/14/19 21 Hip Replacement completed Anna Guerrero [place] - [facility] 02/16/2022 11:28:41 07/15/19 18 Date of Last Colonoscopy completed Anna Guerrero [place] - [facility] 02/22/2022 13:53:07 07/15/19 15 Back Surgery completed Anna Yolanda [place] - [facility] 02/21/2022 08:39:52 Carpal tunnel surgery completed Anna Guerrero [place] - [facility] 02/22/2022 13:55:02 cholecystectomy completed Anna Guerrero [place] - [facility] 02/22/2022 13:55:11 appendectomy completed Anna Guerrero [place] - [facility] 02/22/2022 13:55:22 Thyroid Lobectomy completed Becky Guerrero [place] - [facility] 02/22/2022 13:55:32 Imaging Results None recorded. Procedure Notes None recorded. Medical Equipment None Reported. Allergies Allergen ID Allergen Name Allergen Category Reaction Reaction Severity Criticality Documentation Date Start Date Code Code System Note Provider Name and Address Organization Details Recorded Time 913702 Product containin g penicilli n (product) medicatio n Not available Not available Not available 02/22/2022 73728 8001 SNOMED Anna villasenor [place] - [facility] 13:51:41 548277 Substance with sulfonami de structure and antibacte rial mechanism of action (substanc e) medicatio n fever moderate high 02/22/2022 84865 8003 SNOMED Anna villasenor, [place] - [facility] 10:26:26 130182 codeine medicatio n fever moderate high 02/22/2022 2670 RxNorm Anna villasenor, [place] - [facility] 10:25:59 Medications Name Sig Start Date Stop Date Status Note LastModified by Organization Details LastModified Time amoxicillin 500 mg capsule TAKE ONE (1) CAPSULE TWICE A DAY BY ORAL ROUTE FOR 10 DAYS. 11/09 completed Not Available Not Available Not Available metoprolol tartrate 100 mg tablet TAKE ONE (1) TABLET EVERY DAY BY ORAL ROUTE. active Not Available Not Available No t Available hydrocodone 5 mg-acetamin ophen 325 mg tablet TAKE ONE (1) TABLET BY MOUTH EVERY TWELVE HOURS NEEDED FOR SEVERE PAIN (7-10 PAIN SCALE) 03/19 completed Not Available Not Available Not Available prednisone 20 mg tablet TAKE ONE (1) TABLET TWICE A DAY BY ORAL ROUTE FOR FIVE (5) DAYS. 08/28 completed Not Available Not Available Not Available omeprazole 40 mg capsule,del ayed release TAKE ONE (1) CAPSULE BY MOUTH EVERY DAY active Not Available Not Available No t Available methocarbam ol 750 mg tablet TAKE ONE TABLET BY MOUTH EVERY 8 HOURS NEEDED FOR PAIN 08/28 completed Not Available Not Available Not Available ropinirole 0.25 mg tablet Take 1 tablet as needed by oral route at bedtime. 06/12 completed Not Available Not Available Not Available simvastatin 20 mg tablet TAKE ONE (1) TABLET BY MOUTH EVERY DAY 2024 active Not Available Not Available Not Avai lable ropinirole 0.5 mg tablet TAKE ONE (1) TABLET BY MOUTH EVERY NIGHT AT BEDTIME active Not Available Not Available No t Available metoprolol tartrate 50 mg tablet TAKE ONE (1) TABLET BY MOUTH TWICE DAILY active Not Available Not Available No t Available irbesartan 75 mg tablet Take 1 tablet twice a day by oral route for 30 days. 2024 active Not Available Not Available Not Avai lable mupirocin 2 % topical ointment APPLY A SMALL AMOUNT TO THE AFFECTED AREA BY TOPICAL ROUTE THREE (3) TIMES PER DAY 11/09 completed Not Available Not Available Not Available ergocalcife rol (vitamin D2) 1,250 mcg (50,000 unit) capsule TAKE ONE (1) CAPSULE BY MOUTH EVERY WEEK 03/09 completed Not Available Not Available Not Available carbidopa 25 mg-levodopa 100 mg tablet Take 1 tablet every day by oral route. 06/12 completed Not Available Not Available Not Available fluticasone propionate 50 mcg/actuati on nasal spray,suspe nsion SPRAY ONE (1) SPRAY EVERY DAY BY INTRANASA L ROUTE. 01/18 completed Not Available Not Available Not Available naproxen 500 mg tablet TAKE ONE TABLET BY MOUTH TWICE DAILY 08/28 completed Not Available Not Available Not Available Benadryl Allergy 25 mg tablet Take 1 tablet every day by oral route as needed. active Not Available Not Available No t Available Stool Softener-La xative OTC NEEDED active Not Available Not Available No t Available Lactobacill us acidoph-L.b ulgaricus 1 million cell tablet TAKE 1 TABLET BY MOUTH EVERY DAY 03/19 completed Not Available Not Available Not Available potassium chloride ER 20 mEq tablet,exte nded release Take 1 tablet every day by oral route for 3 days. 2024 active Not Available Not Available Not Avai lable Vitals Date Recorded Body height Body mass index (BMI) Body weight Body temperature Heart rate Oxygen saturation Oxygen saturation in Arterial blood by Pulse oximetry Respiratory rate Pain severity - 0-10 verbal numeric rating [Score] - Reported Systolic And Diastolic Provider Name and Address Organization Details Last Updated DateTime 5 162.56 cm 24.2 kg/m2 21990.5 2 g 98.2 [degF] 108 /min 98 % 98 % 18 /min 0 144/88 mm[Hg] Anna Guerrero [place] - [facility] 16:47:47 Social History Question Answer Notes LastModified by Organizat ion Details LastModified Time Tobacco Smoking Status Never Smoker Anna Guerrero null, [place] - [facility] 02/21/2022 08:36:24 Do You Have An Advance Directive? No Information not available 02/21/2022 Are You Blind Or Do You Have Difficulty Seeing? No Information not available 02/21/2022 What Is Your Level Of Caffeine Consumption? Occasional Information not available 02/21/2022 In The 14 Days Before Symptom Onset, Have You Had Close Contact With A Laboratory-confi rmed COVID-19 While That Case Was Ill? No Information not available 02/21/2022 In The 14 Days Before Symptom Onset, Have You Had Close Contact With A Person Who Is Under Investigation For COVID-19 While That Person Was Ill? No Information not available 02/21/2022 Have You Been To An Area Known To Be High Risk For COVID-19? No Information not available 02/21/2022 Are You Deaf Or Do You Have Serious Difficulty Hearing? No SLIGHTLY NONDALTON Information not available 02/21/2022 What Type Of Diet Are You Following? REGULAR HAS DIVERTICULI TIS- AVOIDS SEEDS ,NUTS, ETC Information not available 02/21/2022 Have You Processed Blood Or Body Fluids From An Ebola Virus Disease Patient Without Appropriate PPE? No Information not available 02/21/2022 Do You Reside In Or Have You Traveled To An Area Where Ebola Virus Transmission Is Active? No Information not available 02/21/2022 What Is The Highest Grade Or Level Of School You Have Completed Or The Highest Degree You Have Received? [id number] Information not available 02/21/2022 Have There Been Any Changes To Your Family Or Social Situation? No Information not available 02/21/2022 What Is The Fluoride Status Of Your Home? Fluoridated Information not available 02/21/2022 Have You Recently Or Are You Planning To Travel To An Area With Zika Virus? No Information not available 02/21/2022 Do You Have A Medical Power Of Special Education Classroom Aide? No Information not available 02/21/2022 What Was The Date Of Your Most Recent Tobacco Screening? 08/28/2024 Information not available 08/28/2024 What Is Your Relationship Status? Information not available 02/21/2022 Are You Sexually Active? No Information not available 02/21/2022 Do You Have Smoke And Carbon Monoxide Detectors In Your Home? Yes Information not available 02/21/2022 Are You Passively Exposed To Smoke? Yes Information not available 02/21/2022 Has Tobacco Cessation Counseling Been Provided? No Information not available 02/21/2022 Do You Have Difficulty Walking Or Climbing Stairs? Yes HIP FRACTURE LAST YEAR- STILL UNSTEADY AT TIMES Information not available 02/21/2022 What Contraceptive Method Was Reported At Start Of This Visit? None Information not available 02/21/2022 Sex: Female Functional Status Question Answer Note LastModified by Organizat ion Details LastModified Time Do you use any illicit or recreational drugs? No Information not available 02/21/2022 Do you or have you ever used any other forms of tobacco or nicotine? No Information not available 02/21/2022 What is your level of alcohol consumption? None Information not available 02/21/2022 Are you currently employed? No Information not available 02/21/2022 Do you have transportation difficulties? No Information not available 02/21/2022 Are you able to walk independently without assistance or assistive devices? YESASSIST USES A CANE OR WALKER Information not available 02/21/2022 Do you have difficulty doing errands alone? Yes NOT DRIVING AT THIS TIME RELATED TO BACK AND HIP SURGERY Information not available 02/21/2022 Are you able to care for yourself independently? Yes Information not available 02/21/2022 Do you have difficulty dressing, bathing, grooming, or toileting? No Information not available 02/21/2022 What is your exercise level? Occasional Information not available 02/21/2022 Mental Status Question Answer Note LastModified by Organizat ion Details LastModified Time Do you feel stressed (tense, restless, nervous, or anxious, or unable to sleep at night)? [id number] Information not available 02/21/2022 Do you have difficulty concentrating, remembering or making decisions? No Information no t available 02/21/2022 Family History Relationship Description Onset Age of this Age Resolved Age Notes LastModified by Organization Details LastModified Time Father Carcinoma of prostate [email or web address] Not available 2021 13:54:06 Mother Hypertensive disorder cbuckler Not available 2021 13:54:17 Mother Cerebrovascu lar accident cbuckler Not available 05/2022 13:54:41 Medical History Condition Response Allergies/Hayfever Y Hospitalizations Y Hyperlipidemia Y Diverticulitis Y Hypertension Y Gynecological History Statement/Question Response Menses Monthly N If Post Menopausal, Age at Menopause 50 Date of Last Pap Smear Date of Last Colonoscopy 07/15/2017 Date of Last Mammogram Obstetrics History GPAL:G 3 P 3 0 0 3 Type Value Multiple Births 0 Full Term 3 Induced 0 Spontaneous 0 Premature 0 Living 3 Ectopics 0 Total 3 Immunizations Vaccine Type Date Status Note Provider Nam e and Address Organization Details Recorded Time zoster recombinant 4 completed Anna Guerrero null, [facility] 05/21/2024 10:40:04 Influenza, high-dose, quadrivalent, PF 3 completed Anna Guerrero null, [facility] 05/06/2023 10:50:38 [facility]/13[facility]23 14:19:07 COVID-19, mRNA, LNP-S, PF, annika-sucrose, 30 mcg/0.3 mL 4 [facility] 08/13/2023 14:20:08 Influenza, high-dose, trivalent, PF 4 [facility] 05/22/2024 08:15:13 COVID-19, mRNA, LNP-S, PF, annika-sucrose, 30 mcg/0.3 mL 4 [facility] 05/22/2024 08:16:35 Pneumococcal conjugate PCV20, polysaccharide [id number] conjugate, adjuvant, PF 5 [facility] 03/09/2025 18:42:08 Td (adult), 2 Lf tetanus toxoid, preservative free, adsorbed 6 completed Anna Guerrero null, [facility] 02/21/2022 08:33:05 pneumococcal polysaccharide PPV23 3 [facility] 02/21/2022 08:33:34 MMR 6 [facility] 02/21/2022 08:33:54 COVID-19, mRNA, LNP-S, PF, 100 mcg/0.5mL dose or 50 mcg/0.25mL dose 1 completed Anna Guerrero null, [facility] 07/24/2022 10:12:41 COVID-19, mRNA, LNP-S, PF, 100 mcg/0.5mL dose or 50 mcg/0.25mL dose 1 completed Anna Guerrero null, [facility] 07/24/2022 10:12:41 Influenza, split virus, trivalent, PF 0 completed Anna Guerrero null, [place] - [facility] 07/24/2022 10:12:41 COVID-19, mRNA, LNP-S, bivalent, PF, 50 mcg/0.5 mL or 25mcg/0.25 mL dose 2 completed Anna Guerrero null, [facility] 07/24/2022 10:12:42 Influenza, high-dose, quadrivalent, PF 2 completed Anna Guerrero null, [facility] 07/24/2022 10:12:42 zoster recombinant 4 completed Anna Guerrero null, [facility] 03/19/2024 10:16:44 Past Encounters Encounter ID Performer Location Encounter Start Date Encounter Closed Date Diagnosis/Indication Diagnosis SNOMED-CT Code Diagnosis ICD10 Code Diagnosis IMO Codes Diagnosis Note [id number] Espinoza aNva [address] [address] 04/01/2025 16:11:33 04/01/2025 17:08:03 Hypertensive disorder 52874990 I10 increase irbesartan 75mg to bidcheck bp at home keep logif no improvemen t return Hematoma 133292695 T14.8 XXA 923633 if any symptoms worsen go to ed Irregular heart beat 361 585978 I49.9 [id number] Espinoza Nava [address] [address] 04/13/2025 16:37:41 04/13/2025 17:30:29 Preoperative procedure [id number] Z01.818 839114 moderate risk due to murmur and htn Diastolic murmur 9667547 1 I38 928839 murmur seems louder today, discussed with family/pt will order echo and then cardiologi st referral after results. Health Concerns Section Related Observation LastModified by Organization Detai ls LastModified Time None Recorded Concern Status LastModified by Organization Details LastModified Time None Recorded Payers Encounter Date Sequence Insurance Name Policy Number Policy Thornton Covered Member ID Thornton Member ID Guarantor Name 04/13/2025 1 [employer] (MEDICARE REPLACEMENT/A DVANTAGE - PPO) Emma Guerrero [id number] Emma Guerrero Notes Date Note Type Note Provider Name and Address Organization Details Recorded Time 04/13/2025 text/html 80 yr old female presents for preop eval. surgery planed 04/20 at [facility] to evaluate hematoma. Espinoza Nava, MOTOR ASSEMBLER [address], [place], [address], [place] - [facility] 04/13/2025 17:30:11 OBGyn Episode No OBEpisode recorded.
--- OUTSIDE RECORDS SUMMARY | 2025-04-15 15:06 | XMS_ITS | Continuity of Care Document ---
Author Organization MICHAEL Alison oRdriguez [facility] Address [address] [place] [address] Care Team Providers Care Social Work Manager Name Role Phone ESPINOZA NAVA Primary Care Provider Assessment Encounter Date Assessment Date Assessment LastModified by Organization Details LastModified Time 03/09/2025 03/09/2025 Patient presente d to office today for their Medicare Annual Wellness Visit. Education was provided on healthy nutrition, including a diet rich in fruits and vegetables, minimizing simple carbohydrates, salt, and saturated fats. Encouraged regular cardiovascular exercise such as walking at least 30 minutes daily, 5 times per week. Emphasized preventive health measures and educated pt on fall prevention and community-based lifestyle interventions to help reduce health risks and promote healthy living. Medicare Preventive Services Check List reviewed and printed for patient. [email or web address] Not available 03/09/2025 16:08:27 Plan of Treatment Reminders Order Date Submit Date Provider Last Modified By Organization Details Last Modified Time Details Appointments None recorded. Lab None recorded. 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 Surgeries None recorded. Imaging None recorded. Medication Orders None recorded. Patient TargetsNo targets recorded. Patient Instructions Encounter Date Encounter Id Patient Instructions Last Modified By Organization Details Last Modified Time 03/09/2025 [id number] advance directives: care instructions efryman Not available 03/09/2025 17:11:40 body mass index: care instructions efryman Not available 03/09/2025 17:28:30 learning about depression efryman Not available 03/09/2025 17:11:40 preventing falls : care instructions enoch Not available 03/09/2025 17:11:39 medicare preventive services guide enoch Not available 03/09/2025 17:11:39 Reason for Referral Rn Appeals Referral for Hea ring loss Referring Physician: Espinoza Nava, Family Medicine, Encounter Date: 03/09/2025 Results Created Date Observation Date Name Description Value Unit Range Abnormal Flag Note LastModifiedBy Organization Detail LastModifiedTime 04/01/20 25 04/01/2025 elect rocar diogr am No observ ation record ed. [address], [address], 04/02/2025 08:38:57 04/02/20 25 04/01/2025 elect rocar diogr am No observ ation record ed. [email or web address] [address], [address], 04/06/2025 14:35:42 04/07/[address], face, w/o contr ast No observ ation record ed. [address], [address], 04/09/2025 13:21:48 04/07/[address], head, w/o contr ast No observ ation record ed. [address], [address], 04/09/2025 13:21:48 04/13/20 25 04/15/2025 elect rocar diogr am No observ ation record ed. [address], [address], 04/15/2025 08:55:45 04/13/20 25 04/13/2025 elect rocar diogr am No observ ation record ed. BARCODE [address], [place], [address], 04/13/2025 17:55:07 Result Notes None recorded. Problems Name Problem SNOMED Code Status Onset Date Resolution Date Notes Provider Name and Address Organization Details Recorded Time Hypertensive disorder 17905256 Active Anna Guerrero [place], [place] - [facility] 2 11:26:49 Hyperlipidemi a 01935355 Active Anna Guerrero null, [place] - [facility] 2 11:27:40 Vitamin D deficiency 73629011 Active 2021 Espinoza Luzgil, DATA COMMUNICATIONS ANALYST [address], [place], [address] , [place] - [facility] 2 14:21:11 Restless legs syndrome 16868118 Active 2021 Valestelauna Luzgil, DATA COMMUNICATIONS ANALYST [address], [place], [address] , [place] - [facility] 2 14:27:46 Prediabetes 253499807 Active 2022 Espinoza Nava, DATA COMMUNICATIONS ANALYST [address], [place], [address] , [place] - [facility] 3 10:39:52 Problem Notes None recorded. Procedures Surgical History Date Name Laterality Status Provider Name and Address Organization Details Recorded Time 03/09/20 25 Advance Care Planning completed Anna Guerrero [place] - [facility] 03/09/2025 16:08:28 03/09/20 25 Functional Status Assessed completed Anna Guerrero [place] - [facility] 03/09/2025 16:08:28 08/28/19 25 Medication Reconcilliation completed Anna Guerrero MICHAEL - [facility] 08/28/2024 08:40:02 03/19/20 24 Medication Reconcilliation completed Anna Guerrero MICHAEL - [facility] 03/19/2024 10:14:46 02/19/20 24 partial left hip replacement by prosthesis completed Anna Guerrero MICHAEL - [facility] 03/19/2024 10:19:16 11/22/19 24 Advance Care Planning completed Anna RODRIGUEZ - [facility] 11/22/2023 10:19:40 11/22/19 24 Functional Status Assessed completed Anna RODRIGUEZ - [facility] 11/22/2023 10:19:40 10/14/19 21 Hip Replacement completed Anna RODRIGUEZ - [facility] 02/16/2022 11:28:41 07/15/19 18 Date of Last Colonoscopy completed Anna RODRIGUEZ - [facility] 02/22/2022 13:53:07 07/15/19 15 Back Surgery completed Anna RODRIGUEZ - [facility] 02/21/2022 08:39:52 Carpal tunnel surgery completed Anna RODRIGUEZ - [facility] 02/22/2022 13:55:02 cholecystectomy completed Anna RODRIGUEZ - [facility] 02/22/2022 13:55:11 appendectomy completed Anna RODRIGUEZ - [facility] 02/22/2022 13:55:22 Thyroid Lobectomy completed Becky [facility]IGUEZ - [facility] 02/22/2022 13:55:32 Imaging Results None recorded. Procedure Notes None recorded. Medical Equipment None Reported. Allergies Allergen ID Allergen Name Allergen Category Reaction Reaction Severity Criticality Documentation Date Start Date Code Code System Note Provider Name and Address Organization Details Recorded Time 460205 Product containin g penicilli n (product) medicatio n Not available Not available Not available 02/22/2022 16586 8001 SNOMED MICHAEL Abdalla - [facility] 2 13:51:41 604984 Substance with sulfonami de structure and antibacte rial mechanism of action (substanc e) medicatio n fever moderate high 02/22/2022 43367 8003 SNOMED MICHAEL Abdalla - [facility] 2 10:26:26 339089 codeine medicatio n fever moderate high 02/22/2022 2670 RxNorm MICHAEL Abdalla - [facility] 2 10:25:59 Medications Name Sig [...] height Body mass index (BMI) Body weight Heart rate Oxygen saturation Oxygen saturation in Arterial blood by Pulse oximetry Respiratory rate Pain severity - 0-10 verbal numeric rating [Score] - Reported Body temperature Systolic And Diastolic Provider Name and Address Organization Details Last Updated DateTime 162.56 cm 24.2 kg/m2 66104.5 2 g 79 /min 97 % 97 % 18 /min 0 98.1 [degF] 132/80 mm[Hg] Anna Guerrero [place] - [facility] 16:36:15 Social History Question Answer Notes LastModified by [...] You Have Serious Difficulty Hearing? No [place] Information not available 02/21/2022 What Type Of [...] Or The Highest Degree You Have Received? [id number] Information not available 02/21/2022 Have There Been Any Changes To Your Family Or Social Situation? No Information not available 02/21/2022 What Is The Fluoride Status Of Your Home? Fluoridated Information not available 02/21/2022 Have You Recently Or Are You Planning To Travel To An Area With Zika Virus? No Information not available 02/21/2022 Do You Have A Medical Power Of Personal Banking Officer? No Information not available 02/21/2022 What Was [...] anxious, or unable to sleep at night)? [id number] Information not available 02/21/2022 Do you have [...] Immunizations Vaccine Type Date Status Note Provider Quincy cotto and Address Organization Details Recorded Time zoster recombinant 4 completed Anna Guerrero [place], [place] - [facility] 05/21/2024 10:40:04 Influenza, high-dose, quadrivalent, PF 3 completed Anna Guerrero [place], [place] - [facility] 05/06/2023 10:50:38 Tdap 4 completed Anna Guerrero null, [facility] 08/13/2023 14:19:07 COVID-19, mRNA, LNP-S, PF, annika-sucrose, 30 mcg/0.3 mL 4 completed Anna Guerrero null, [facility] 08/13/2023 14:20:08 Influenza, high-dose, trivalent, PF 4 completed Anna Hoffmanler null, [facility] 05/22/2024 08:15:13 COVID-19, mRNA, LNP-S, PF, annika-sucrose, 30 mcg/0.3 mL 4 completed Anna Guerrero null, [facility] 05/22/2024 08:16:35 Pneumococcal conjugate PCV20, polysaccharide [id number] conjugate, adjuvant, PF 5 completed Anna Guerrero null, [facility] 03/09/2025 18:42:08 Td (adult), 2 Lf tetanus toxoid, preservative free, adsorbed 6 completed Anna Guerrero null, [facility] 02/21/2022 08:33:05 pneumococcal polysaccharide PPV23 3 completed Anna Guerrero null, [facility] 02/21/2022 08:33:34 MMR 6 completed Anna Guerrero null, [facility] 02/21/2022 08:33:54 COVID-19, mRNA, LNP-S, PF, 100 mcg/0.5mL dose or 50 mcg/0.25mL dose 1 completed Anna Guerrero null, [facility] 07/24/2022 10:12:41 COVID-19, mRNA, LNP-S, PF, 100 mcg/0.5mL dose or 50 mcg/0.25mL dose 1 completed Anna Guerrero null, [facility] 07/24/2022 10:12:41 Influenza, split virus, trivalent, PF 0 completed Anna Guerrero null, [place] - [facility] 07/24/2022 10:12:41 COVID-19, mRNA, LNP-S, bivalent, PF, 50 mcg/0.5 mL or 25mcg/0.25 mL dose 2 completed Anna Guerrero [place], [place] - [facility] 07/24/2022 10:12:42 Influenza, high-dose, quadrivalent, PF 2 completed Anna Guerrero [place], [place] - [facility] 07/24/2022 10:12:42 zoster recombinant 4 completed Anna Guerrero [place], [place] - [facility] 03/19/2024 10:16:44 Past Encounters Encounter ID Performer Location Encounter Start Date Encounter Closed Date Diagnosis/Indication Diagnosis SNOMED-CT Code Diagnosis ICD10 Code Diagnosis IMO Codes Diagnosis Note [id number] Espinoza Nava APRN [address] [address] 03/09/2025 16:16:49 03/09/2025 17:40:13 Adult health examination 655067949 Z00.00 Depression screening 171 148259 Z13.31 A depression screening was completed via a standardiz ed screening tool. 5 minutes were spent discussing depression screening results and risk factors. Examinatio n of blood pressure 142005833 Z01.30 Diet education 80018837 Z71.3 Counseling 357966280 Z71 .82 Exercise counseling . Patient encouraged to exercise 30 minutes 5 days a week. At [facility] ed risk for falls 971559231 Z91.81 STEADI FAST screening score of __10___. Advance care planning 71 1118907 Z71.89 Immunization due 1503763 08 Z23 9695785 Hearing loss 58918968 H9 1.90 099318 Normal weight 27661077 Z 68.24 8904153498 Body mass index 20-24 - normal 913886039 Z68.24 89578929 Health Concerns Section Related Observation LastModified by Organization Detai ls LastModified Time None Recorded Concern Status LastModified by Organization Details LastModified Time None Recorded Payers Encounter Date Sequence Insurance Name Policy Number Policy Thornton Covered Member ID Thornton Member ID Guarantor Name 03/09/2025 1 [employer] (MEDICARE REPLACEMENT/A DVANTAGE - PPO) Emma Guerrero [id number] Emma Guerrero Notes Date Note Type Note Provider Name and Address Organization Details Recorded Time 5 text/html Medicare Annual Wellness VisitReported by PatientSocial/Behavioral HistoryFor diet and nutrition, patient reportsdiet is high in fat, low in fiberbut reportsdiscussed diet improvement. For fracture risk, patient reportshistory of fracturesandprevious musculoskeletal injuries. For physical activity, patient reportsdiscussed weightbearing activitiesanddiscussed exercise habits.Mental Status:For depression risk, patient reportsloss of energybut reportsnever feels sad, empty, or tearful,no loss of interest in activities,no significant changes in weight,no thoughts of suicide,no history of depression, andno history of mood disorders. For orientation, patient reportsdisorientation to datebut reportsno disorientation to timeandno disorientation to place. For concentration and memory, patient reportsdecreased concentrating ability,memory lapses or loss, andforgetting words. For speech/motor difficulties, patient reportsspeech difficultiesandslowed reaction timebut reportsno difficulty writing/copying.Functional AbilityFor hearing, patient reportsloss of hearing: in both ears. For vision, patient reportsworsening. For home safety, patient reportspoor lighting in the homebut reportsno unsafe stairs,no unsafe gas appliances, anduse of seatbelts. For activities of daily living, patient reportsable to bathe with limited or no assistance,able to contol urination and bowels,able to dress with limited or no assistance,able to feed self with limited or no assistance,able to get out of chair or bed with limited or no assistance,able to groom with limited or no assistance, andable to toilet with limited or no assistance. For instrumental activities of daily living, patient reportsable to do house work with limited or no assistance,able to grocery shop with limited or no assistance,able to manage medications with limited or no assistance,able to manage money with limited or no assistance,able to prepare meals with limited or no assistance, andable to use the phone with limited or no assistance. For falls risk assessment, patient reportsfall(s) in the past year 0andfall(s) since last visit0. For current level of pain, patient reportsno pain: 0/10. 80 yr old female presents for a medicare annual wellness exam. She would like to have hearing aids. Espinoza Nava, DATA COMMUNICATIONS ANALYST [address], [place], [address], [place] - [facility] 03/09/2025 17:28:23 OBGyn Episode No OBEpisode recorded.
--- OUTSIDE RECORDS SUMMARY | 2025-04-15 15:06 | XMS_ITS | Continuity of Care Document ---
Author Organization [facility] Address [address] [place] [address] Care Team Providers Care Online Marketing Director Name Role Phone ESPINOZA NAVA Primary Care Provider Assessment No assessment recorded. Plan of Treatment Reminders Order Date Submit Date Provider Last Modified By Organization Details Last Modified Time Details Appointments None recorded. Lab None recorded. Referral ENT surgery referral - spoke with maisha lou aprn- will see pt weds-need appointment [address] [facility], [address], [place], [address], 08:30:01 Procedures None recorded. Surgeries None recorded. Imaging CT, head, w/o contrast 2024 025 [facility], [address] [place] [address], [phone], 11:46:34 CT, face, w/o contrast 2024 025 [facility], [address] [place] [address], [phone], 11:46:24 electrocard iogram 2024 025 [facility], [address] [place] [address], [phone], 5 17:21:21 Medication Orders irbesartan 75 mg tablet 2024 025 [facility] [place] [facility], [address] [facility] [address], [place], [address], 16:59:34 Patient TargetsNo targets recorded. Patient InstructionsNo instructions recorded. Reason for Referral ENT Surgery Referral for Hem atoma spoke with maisha lou aprn- will see pt weds-need appointment Referring Physician: Espinoza Nava, Family Medicine, Encounter Date: 04/01/2025 Results Created Date Observation Date Name Description Value Unit Range Abnormal Flag Note LastModifiedBy Organization Detail LastModifiedTime 04/01/2004/01/2025 elect rocar diogr am No observ ation record ed. [address], [address], 04/02/2025 08:38:57 04/02/2004/01/2025 elect rocar diogr am No observ ation record ed. [email or web address], [address], 04/06/2025 14:35:42 04/07/[address], face, w/o contr ast No observ ation record ed. [facility] [address] [place], [address], 04/09/2025 13:21:48 04/07/[address], head, w/o contr ast No observ ation record ed. [facility] [address] [place], [address], 04/09/2025 13:21:48 04/13/20 25 04/15/2025 elect rocar diogr am No observ ation record ed. [address], [address], 04/15/2025 08:55:45 04/13/20 25 04/13/2025 elect bobby cuellargr am No observ ation record ed. [facility] [address], [place], [address], 04/13/2025 17:55:07 Result Notes None recorded. Problems Name Problem SNOMED Code Status Onset Date Resolution Date Notes Provider Name and Address Organization Details Recorded Time Hypertensive disorder 28558972 Active Anna [place]as[place], [place] - [facility] 2 11:26:49 Hyperlipidemi a 81183250 Active Anna [place], [place] - [facility] 2 11:27:40 Vitamin D deficiency 23868203 Active 2021 Espinoza Nava APRN [address], [place], [address] , [place] - [facility] 2 14:21:11 Restless legs syndrome 63930028 Active 2021 Espinoza Nava APRN [address], [place], [address] , [place] - [facility] 2 14:27:46 Prediabetes 380800427 Active 2022 Espinoza Nava APRN [address], [place], [address] , [place] - [facility] 3 10:39:52 Problem Notes None recorded. Procedures Surgical History Date Name Laterality Status Provider Name and Address Organization Details Recorded Time 03/09/20 25 Advance Care Planning completed Anna Guerrero MICHAEL - [facility] 03/09/2025 16:08:28 03/09/20 25 Functional Status Assessed completed Anna RODRIGUEZ - [facility] 03/09/2025 16:08:28 08/28/19 25 Medication Reconcilliation completed Anna RODRIGUEZ - [facility] 08/28/2024 08:40:02 03/19/20 24 Medication Reconcilliation completed Anna RODRIGUEZ - [facility] 03/19/2024 10:14:46 02/19/20 24 partial left hip replacement by prosthesis completed Anna RODRIGUEZ - [facility] 03/19/2024 10:19:16 11/22/19 24 Advance Care Planning completed Anna RODRIGUEZ - [facility] 11/22/2023 10:19:40 11/22/19 24 Functional Status Assessed [...] 02/22/2022 13:55:02 cholecystectomy completed Anna RODRIGUEZ - [facility] 02/22/2022 13:55:11 appendectomy completed Anna RODRIGUEZ [facility] 02/22/2022 13:55:22 Thyroid Lobectomy completed Becky RODRIGUEZ [facility] 02/22/2022 13:55:32 Imaging Results None recorded. Procedure Notes None recorded. Medical Equipment None Reported. Allergies Allergen ID Allergen Name Allergen Category Reaction Reaction Severity Criticality Documentation Date Start Date Code Code System Note Provider Name and Address Organization Details Recorded Time 824223 Product containin g penicilli n (product) medicatio n Not available Not available Not available 02/22/2022 14242 8001 SNOMED MICHAEL Abdalla [facility] 13:51:41 960486 Substance with sulfonami de structure and antibacte rial mechanism of action (substanc e) medicatio n fever moderate high 02/22/2022 37225 8003 SNOMED MICHAEL Abdalla - [facility] 10:26:26 131012 codeine medicatio n fever moderate high 02/22/2022 2670 RxNorm MICHAEL Abdalla [facility] 2 10:25:59 Medications Name Sig Start Date [...] Updated DateTime 5 162.56 cm 24.2 kg/m2 57193.5 2 g 76 /min 98 % 98 % 18 /min 3 200/98 mm[Hg] Anna Guerrero [place] - [facility] 5 16:38:35 Social History Question Answer Notes LastModified by [...] You Have Serious Difficulty Hearing? No SLIGHTLY PLATINUM Information not available 02/21/2022 What Type Of [...] Or The Highest Degree You Have Received? [id number] Information not available 02/21/2022 Have There Been Any Changes To Your Family Or Social Situation? No Information not available 02/21/2022 What Is The Fluoride Status Of Your Home? Fluoridated Information not available 02/21/2022 Have You Recently Or Are You Planning To Travel To An Area With Zika Virus? No Information not available 02/21/2022 Do You Have A Medical Power Of Tail Board Man? No Information not available 02/21/2022 What Was [...] anxious, or unable to sleep at night)? [id number] Information not available 02/21/2022 Do you have [...] available 05/2022 13:54:41 Medical History Condition Response Hospitalizations Y Allergies/Hayfever Y Hyperlipidemia Y Hypertension Y Diverticulitis Y Gynecological History Statement/Question Response Menses Monthly [...] Recorded Time zoster recombinant 4 completed Anna Guererro null, [place] - [facility] 05/21/2024 10:40:04 Influenza, high-dose, quadrivalent, PF 3 completed Anna [place]erre[place] null, [place] - [facility] 05/06/2023 10:50:38 Tdap 4 completed Anna Hoffmanler null, [place] - [facility] 08/13/2023 14:19:07 COVID-19, mRNA, LNP-S, PF, annika-sucrose, 30 mcg/0.3 mL 4 completed Anna [place], [place] - [facility] 08/13/2023 14:20:08 Influenza, high-dose, trivalent, PF 4 completed Anna [place], [place] - [facility] 05/22/2024 08:15:13 COVID-19, mRNA, LNP-S, PF, annika-sucrose, 30 mcg/0.3 mL 4 completed Anna [place] - [facility] 05/22/2024 08:16:35 Pneumococcal conjugate PCV20, polysaccharide OCL592 conjugate, adjuvant, PF 5 completed Anna [place] null[place] - [facility] 03/09/2025 18:42:08 Td (adult), 2 Lf tetanus toxoid, preservative free, adsorbed 6 completed Anna [place] - [facility] 02/21/2022 08:33:05 pneumococcal polysaccharide PPV23 3 completed [place] - [facility] 02/21/2022 08:33:34 MMR 6 completed [place] - [facility] 02/21/2022 08:33:54 COVID-19, mRNA, LNP-S, PF, 100 mcg/0.5mL dose or 50 mcg/0.25mL dose 1 completed Anna [place] null, [place] - [facility] 07/24/2022 10:12:41 COVID-19, mRNA, LNP-S, PF, 100 mcg/0.5mL dose or 50 mcg/0.25mL dose 1 completed Anna [place] null, [place] - [facility] 07/24/2022 10:12:41 Influenza, split virus, trivalent, PF 0 completed Anna Guerre[place] null, [place] - [facility] 07/24/2022 10:12:41 COVID-19, mRNA, LNP-S, bivalent, PF, 50 mcg/0.5 mL or 25mcg/0.25 mL dose 2 completed Anna Guerrero null, MICHAEL - [facility] 07/24/2022 10:12:42 Influenza, high-dose, quadrivalent, PF 2 completed Anna [place] null, [place] - [facility] 07/24/2022 10:12:42 zoster recombinant 4 completed Anna Guerrero null, MIC[place]EL - [facility] 03/19/2024 10:16:44 Past Encounters Encounter ID Performer Location Encounter Start Date Encounter Closed Date Diagnosis/Indication Diagnosis SNOMED-CT Code Diagnosis ICD10 Code Diagnosis IMO Codes Diagnosis Note [id number] Espinoza Nava [address] [address] 03/09/2025 16:16:49 03/09/2025 17:40:13 Adult health examination 726753575 Z00.00 Depression screening 171 625553 Z13.31 A depression screening was completed via a standardiz ed screening tool. 5 minutes were spent discussing depression screening results and risk factors. Examinatio n of blood pressure 960199353 Z01.30 Diet education 04185275 Z71.3 Counseling 078378430 Z71 .82 Exercise counseling . Patient encouraged to exercise 30 minutes 5 days a week. At [facility] ed risk for falls 899680032 Z91.81 STEADI FAST screening score of __10___. Advance care planning 71 3748492 Z71.89 Immunization due 1058340 08 Z23 0636385 Hearing loss 34840610 H9 1.90 773295 Normal weight 38038417 Z 68.24 0144845493 Body mass index 20-24 - normal 586627700 Z68.24 77426831 [id number] Espinoza Nava APRN [address] [address] 04/01/2025 16:11:33 04/01/2025 17:08:03 Hypertensive disorder 99733266 I10 increase irbesartan 75mg to bidcheck bp at home keep logif no improvemen t return Hematoma 984170334 T14.8 XXA 158452 if any symptoms worsen go to ed Irregular heart beat 361 437514 I49.9 649403 Health Concerns Section Related Observation LastModified by Organization Detai ls LastModified Time None Recorded Concern Status LastModified by Organization Details LastModified Time None Recorded Payers Encounter Date Sequence Insurance Name Policy Number Policy Thornton Covered Member ID Thornton Member ID Guarantor Name 04/01/2025 1 [employer] (MEDICARE REPLACEMENT/A DVANTAGE - PPO) Emma Guerrero [id number] Emma Guerrero Notes Date Note Type Note Provider Name and Address Organization Details Recorded Time 04/01/2025 text/html ROS as noted in the HPI 80 yr old female presents with a facial injury x 2 weeks ago. She ran into a door facing/wood in the dark at home. She has a hematoma/bruise d area to the left upper eye that will not go down/ clear up. She also has high bp in the office today. Espinoza Nava, PROGRAM MANAGEMENT INTERN [address], [place], [address], [facility] - [facility] 04/01/2025 17:06:29 OBGyn Episode No OBEpisode recorded.
--- OUTSIDE RECORDS SUMMARY | 2025-04-15 15:06 | XMS_ITS | Data Portability ---
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 Role Phone VANIA JENNIKELIUna Primary Care Provider Assessment Encounter Date Assessment [...] Lab CBC w/ auto diff 2024 025 [facility], [address], [place], [address], 06:10:46 BMP, serum or plasma 2024 025 [facility], [address], [place], [address], 06:10:47 magnesium, serum or plasma 2024 025 [facility], [address], [address], [place], [address], 5 08:12:33 CMP, serum or plasma 2024 025 [facility], [address], Kristian F, [place], [address], 5 08:12:32 CBC w/ auto diff 2024 025 [facility], [address], Kristian F, [place], [address], 5 08:12:31 vitamin D, 25-hydroxy, total, serum 2024 025 [facility], [address], Kristian F, [place], [address], 5 08:12:33 HbA1c (hemoglobin A1c), blood 2024 025 [facility], [address], Kristian F, [place], [address], 5 08:12:33 lipid panel, serum 2024 025 [facility], [address], Kristian F, [place], [address], 5 08:12:32 Referral ENT surgery referral - spoke with maisha lou aprn- will see pt weds-need appointment 2024 025 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 Imaging electrocard iogram 2024 025 [facility], [address] [place] [address], [id number], 17:55:07 US, echocardiog britta 2024 025 [facility] [address], [place], [address], 10:33:20 CT, head, w/o contrast 2024 025 [facility], [address] [place] [address], [id number], 11:46:34 CT, face, w/o contrast 2024 025 [facility], [address] [place] [address], [id number], 11:46:24 electrocard iogram 2024 025 [facility], [address] [place] [address], [phone], 17:21:21 Medication Orders irbesartan 75 mg tablet 2024 025 [facility], [address] [place] [address], [address], 16:59:34 Patient TargetsNo targets recorded. 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 Referring Physician: Jennifer Nava [facility], Encounter Date: 03/09/2025 ENT Surgery 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77-5 .28 normal Not Available [facility] ([facility]) [address] [place], [address], 01/06/2025 08:12:31 01/06/2001/06/2025 CBC WITH DIFFE RENTI AL/PL ATELE T hemoglobin 12.6 g/dL 11.1-1 5.9 normal Not Available [facility] ([facility]) [address] [place], [address], 01/06/2025 08:12:31 01/06/2001/06/2025 CBC WITH DIFFE RENTI AL/PL ATELE T hematocrit 35.5 % 34.0-4 6.6 normal Not Available [facility] ([facility]) [address] [place], [address], 01/06/2025 08:12:31 01/06/2001/06/2025 CBC WITH DIFFE RENTI AL/PL ATELE T MCV 85 fL 79-97 normal Not Available [facility] ([facility]) [address] [facility], [place], [address], 01/06/2025 08:12:31 01/06/2001/06/2025 CBC WITH DIFFE RENTI AL/PL ATELE T MCH 30.2 pg 26.6-3 3.0 normal Not Available [facility] ([facility]) [address] [facility], [place], [address], 01/06/2025 08:12:31 01/06/2001/06/2025 CBC WITH DIFFE RENTI AL/PL ATELE T MCHC 35.5 g/dL 31.5-3 5.7 normal Not Available [facility] ([facility]) [address] [place], [address], 01/06/2025 08:12:31 01/06/2001/06/2025 CBC WITH DIFFE RENTI AL/PL ATELE T RDW 14.1 % 11.7-1 5.4 Not Available [facility] ([facility]) [address] [place], [address], 01/06/2025 08:12:31 01/06/2001/06/2025 CBC WITH DIFFE RENTI AL/PL ATELE T platelets 233 x10e3 /uL 150-45 0 normal Not Available [facility] ([facility]) [address] [place], [address], 01/06/2025 08:12:31 01/06/2001/06/2025 CBC WITH DIFFE RENTI AL/PL ATELE T neutrophils 45 % not estab. normal Not Available [facility] ([facility]) [address] [facility], [place], [address], 01/06/2025 08:12:31 01/06/2001/06/2025 CBC WITH DIFFE RENTI AL/PL ATELE T lymphs 44 % not estab. normal Not Available [facility] ([facility]) [address] [place], [address], 01/06/2025 08:12:31 01/06/2001/06/2025 CBC WITH DIFFE RENTI AL/PL ATELE T monocytes 8 % not estab. normal Not Available [facility] ([facility]) [address] [place], [address], 01/06/2025 08:12:31 01/06/2001/06/2025 CBC WITH DIFFE RENTI AL/PL ATELE T eos 2 % not estab. normal Not Available [facility] ([facility]) [address] [facility], [place], [address], 01/06/2025 08:12:31 01/06/2001/06/2025 CBC WITH DIFFE RENTI AL/PL ATELE T basos 1 % not estab. normal Not Available [facility] ([facility]) [address] [place], [address], 01/06/2025 08:12:31 01/06/2001/06/2025 CBC WITH DIFFE RENTI AL/PL ATELE T immature cells SECOND HELPER Not Available [facility] ([facility]) [address] [place], [address], 01/06/2025 08:12:31 01/06/2001/06/2025 CBC WITH DIFFE RENTI AL/PL ATELE T neutrophils (absolute) 2.5 x10e3 /uL 1.4-7. 0 normal Not Available [facility] ([facility]) [address] [place], [address], 01/06/2025 08:12:31 01/06/20 25 01/06/2025 CBC WITH DIFFE RENTI AL/PL ATELE T lymphs (absolute) 2.5 x10e3 /uL 0.7-3. 1 normal Not Available [facility] ([facility]) [address] [facility], [place], [address], 01/06/2025 08:12:31 01/06/2001/06/2025 CBC WITH DIFFE RENTI AL/PL ATELE T monocytes(ab solute) 0.4 x10e3 /uL 0.1-0. 9 normal Not Available [facility] ([facility]) [address] [facility], [place], [address], 01/06/2025 08:12:31 01/06/2001/06/2025 CBC WITH DIFFE RENTI AL/PL ATELE T eos (absolute) 0.1 x10e3 /uL 0.0-0. 4 normal Not Available [facility] ([facility]) [address] [facility], [place], [address], 01/06/2025 08:12:31 01/06/2001/06/2025 CBC WITH DIFFE RENTI AL/PL ATELE T baso (absolute) 0.0 x10e3 /uL 0.0-0. 2 normal Not Available [facility] ([facility]) [address] [facility], [place], [address], 01/06/2025 08:12:31 01/06/2001/06/2025 CBC WITH DIFFE RENTI AL/PL ATELE T immature granulocytes 0 % not estab. Not Available [facility] ([facility]) [address] [place], [address], 01/06/2025 08:12:31 01/06/2001/06/2025 CBC WITH DIFFE RENTI AL/PL ATELE T immature grans (abs) 0.0 x10e3 /uL 0.0-0. 1 Not Available [facility] ([facility]) [address] [place], [address], 01/06/2025 08:12:31 01/06/2001/06/2025 CBC WITH DIFFE RENTI AL/PL ATELE T NRBC SECOND HELPER Not Available [facility] ([facility]) [address] [facility], [place], [address], 01/06/2025 08:12:31 01/06/20 25 01/06/2025 CBC WITH DIFFE RENTI AL/PL ATELE T hematology comments: SECOND HELPER Not Available [facility] ([facility]) [address] [facility], [place], [address], 01/06/2025 08:12:31 01/06/20 25 01/06/2025 COMP. METAB OLIC PANEL (14) glucose 92 mg/dL 70-99 normal Not Available [facility] ([facility]) [address] [facility], [place], [address], 01/06/2025 08:12:32 01/06/20 25 01/06/2025 COMP. METAB OLIC PANEL (14) BUN 11 mg/dL 8-27 normal Not Available [facility] ([facility]) [address] [facility], [place], [address], 01/06/2025 08:12:32 01/06/20 25 01/06/2025 COMP. METAB OLIC PANEL (14) creatinine 0.45 mg/dL 0.57-1 .00 below low normal Not Available [facility] ([facility]) [address] [facility], [place], [address], 01/06/2025 08:12:32 01/06/20 25 01/06/2025 COMP. METAB OLIC PANEL (14) eGFR 97 mL/mi n/1.7 3 >59 normal Not Available [facility] ([facility]) [address] [facility] [place], [address], 01/06/2025 08:12:32 01/06/20 25 01/06/2025 COMP. METAB OLIC PANEL (14) BUN/creatini ne ratio 24 12-28 normal Not Available [facility] ([facility]) [address] [facility] [place], [address], 01/06/2025 08:12:32 01/06/20 25 01/06/2025 COMP. METAB OLIC PANEL (14) sodium 145 mmol/ L 134-14 4 above high normal Not Available [facility] ([facility]) [address] [place], [address], 01/06/2025 08:12:32 01/06/20 25 01/06/2025 COMP. METAB OLIC PANEL (14) potassium 3.0 mmol/ L 3.5-5. 2 below low normal Not Available [facility] ([facility]) [address] [facility] [place], [address], 01/06/2025 08:12:32 01/06/20 25 01/06/2025 COMP. METAB OLIC PANEL (14) chloride 107 mmol/ L 96-106 above high normal Not Available [facility] ([facility]) [address] [facility] [place], [address], 01/06/2025 08:12:32 01/06/20 25 01/06/2025 COMP. METAB OLIC PANEL (14) carbon dioxide, total 21 mmol/ L 20-29 normal Not Available [facility] ([facility]) [address] [facility] [place], [address], 01/06/2025 08:12:32 01/06/20 25 01/06/2025 COMP. METAB OLIC PANEL (14) calcium 9.4 mg/dL 8.7-10 .3 normal Not Available [facility] ([facility]) [address] [facility] [place], [address], 01/06/2025 08:12:32 01/06/20 25 01/06/2025 COMP. METAB OLIC PANEL (14) protein, total 6.7 g/dL 6.0-8. 5 normal Not Available [facility] ([facility]) [address] [facility] [place], [address], 01/06/2025 08:12:32 01/06/20 25 01/06/2025 COMP. METAB OLIC PANEL (14) albumin 4.5 g/dL 3.8-4. 8 normal Not Available [facility] ([facility]) [address] [place], [address], 01/06/2025 08:12:32 01/06/20 25 01/06/2025 COMP. METAB OLIC PANEL (14) globulin, total 2.2 g/dL 1.5-4. 5 Not Available [facility] ([facility]) [address] [place], [address], 01/06/2025 08:12:32 01/06/20 25 01/06/2025 COMP. METAB OLIC PANEL (14) bilirubin, total 0.4 mg/dL 0.0-1. 2 normal Not Available [facility] ([facility]) [address] [facility] [place], [address], 01/06/2025 08:12:32 01/06/20 25 01/06/2025 COMP. METAB OLIC PANEL (14) alkaline phosphatase 96 IU/L 44-121 normal Not Available [facility] ([facility]) [address] [facility] [place], [address], 01/06/2025 08:12:32 01/06/20 25 01/06/2025 COMP. METAB OLIC PANEL (14) AST (SGOT) 18 IU/L 0-40 normal Not Available [facility] ([facility]) [address] [facility] [place], [address], 01/06/2025 08:12:32 01/06/20 25 01/06/2025 COMP. METAB OLIC PANEL (14) ALT (SGPT) 13 IU/L 0-32 normal Not Available [facility] ([facility]) [address] [facility] [place], [address], 01/06/2025 08:12:32 01/06/20 25 01/06/2025 LIPID PANEL cholesterol, total 162 mg/dL 100-19 9 normal Not Available [facility] ([facility]) [address] [place], [address], 01/06/2025 08:12:32 01/06/20 25 01/06/2025 LIPID PANEL triglyceride s 85 mg/dL 0-149 normal Not Available [facility] ([facility]) [address] [place], [address], 01/06/2025 08:12:32 01/06/20 25 01/06/2025 LIPID PANEL HDL cholesterol 60 mg/dL >39 normal Not Available [facility] ([facility]) [address] [place], [address], 01/06/2025 08:12:32 01/06/2001/06/2025 LIPID PANEL VLDL cholesterol gricelda 16 mg/dL 5-40 Not Available [facility] ([facility]) [address] [place], [address], 01/06/2025 08:12:32 01/06/20 25 01/06/2025 LIPID PANEL LDL chol calc ([facility]) 86 mg/dL 0-99 Not Available [facility] ([facility]) [address] [place], [address], 01/06/2025 08:12:32 01/06/2001/06/2025 LIPID PANEL LDL calc comment: SECOND HELPER Not Available [facility] ([facility]) [address] [place], [address], 01/06/2025 08:12:32 01/06/2001/06/2025 HEMOG LOBIN A1C hemoglobin A1C 5.8 % 4.8-5. 6 above high normal Predi abete s: 5.7 - 6.4 Diabe karmen: >6.4 Glyce dede contr ol for adult s with diabe karmen: <7.0 Not Available [facility] ([facility]) [address] [facility], [place], [address], 01/06/2025 08:12:33 01/06/20 25 01/06/2025 VITAM IN D, 25-HY DROXY vitamin D, 25-hydroxy 27.6 NG/mL 30.0-1 00.0 below low normal Vitam in D defic iency has been defin ed by the Insti tute of Medic ine and an Endoc rine Socie ty pract ice guide line as a level of serum 25-OH vitam in D less than 20 ng/mL (1,2) . The Endoc rine Socie ty went on to furth er defin e vitam in D insuf ficie ncy as a level betwe en 21 and 29 ng/mL (2). 1. IOM (Inst itute of Medic ine). 2010. Dieta ry refer ence michelle es for calci um and D. Becky marquez [place]: [facility] . 2. Elena sage MF, Kunal segura [place], Kodi off-F errar i FAJARDO, et al. Evalu ation , treat ment, and preve ntion of vitam in D defic iency : an Endoc rine Socie ty clini gricelda pract ice guide line. JCEM. 2010; 96(7) :1911 -30. Not Available [facility] ([facility]) [address] [facility], [place], [address], 01/06/2025 08:12:33 01/06/20 25 01/06/2025 MAGNE SIUM magnesium 2.1 mg/dL 1.6-2. 3 normal Not Available [facility] ([facility]) [address] [place], [address], 01/06/2025 08:12:33 01/13/20 25 01/13/2025 COMP. METAB OLIC PANEL (14) glucose 104 mg/dL 70-99 above high normal Not Available [facility] ([facility]) [address] [place], [address], 01/13/2025 11:07:43 01/13/20 25 01/13/2025 COMP. METAB OLIC PANEL (14) BUN 10 mg/dL 8-27 normal Not Available [facility] ([facility]) [address] [facility] [place], [address], 01/13/2025 11:07:43 01/13/20 25 01/13/2025 COMP. METAB OLIC PANEL (14) creatinine 0.61 mg/dL 0.57-1 .00 normal Not Available [facility] ([facility]) [address] [facility] [place], [address], 01/13/2025 11:07:43 01/13/20 25 01/13/2025 COMP. METAB OLIC PANEL (14) eGFR 90 mL/mi n/1.7 3 >59 normal Not Available [facility] ([facility]) [address] [facility] [place], [address], 01/13/2025 11:07:43 01/13/20 25 01/13/2025 COMP. METAB OLIC PANEL (14) BUN/creatini ne ratio 16 12-28 normal Not Available [facility] ([facility]) [address] [facility], [place], [address], 01/13/2025 11:07:43 01/13/20 25 01/13/2025 COMP. METAB OLIC PANEL (14) sodium 143 mmol/ L 134-14 4 normal Not Available [facility] ([facility]) [address] [facility] [place], [address], 01/13/2025 11:07:43 01/13/20 25 01/13/2025 COMP. METAB OLIC PANEL (14) potassium 4.2 mmol/ L 3.5-5. 2 normal Not Available [facility] ([facility]) [address] [place], [address], 01/13/2025 11:07:43 01/13/20 25 01/13/2025 COMP. METAB OLIC PANEL (14) chloride 105 mmol/ L 96-106 normal Not Available [facility] ([facility]) [address] [facility] [place], [address], 01/13/2025 11:07:43 01/13/20 25 01/13/2025 COMP. METAB OLIC PANEL (14) carbon dioxide, total 25 mmol/ L 20-29 normal Not Available [facility] ([facility]) [address] [place], [address], 01/13/2025 11:07:43 01/13/20 25 01/13/2025 COMP. METAB OLIC PANEL (14) calcium 9.5 mg/dL 8.7-10 .3 normal Not Available [facility] ([facility]) [address] [facility] [place], [address], 01/13/2025 11:07:43 01/13/20 25 01/13/2025 COMP. METAB OLIC PANEL (14) protein, total 6.8 g/dL 6.0-8. 5 normal Not Available [facility] ([facility]) [address] [place], [address], 01/13/2025 11:07:43 01/13/20 25 01/13/2025 COMP. METAB OLIC PANEL (14) albumin 4.4 g/dL 3.8-4. 8 normal Not Available [facility] ([facility]) [address] [place], [address], 01/13/2025 11:07:43 01/13/20 25 01/13/2025 COMP. METAB OLIC PANEL (14) globulin, total 2.4 g/dL 1.5-4. 5 Not Available [facility] ([facility]) [address] [place], [address], 01/13/2025 11:07:43 01/13/20 25 01/13/2025 COMP. METAB OLIC PANEL (14) bilirubin, total 0.3 mg/dL 0.0-1. 2 normal Not Available [facility] ([facility]) [address] [facility] [place], [address], 01/13/2025 11:07:43 01/13/20 25 01/13/2025 COMP. METAB OLIC PANEL (14) alkaline phosphatase 85 IU/L 44-121 normal Not Available [facility] ([facility]) [address] [facility] [place], [address], 01/13/2025 11:07:43 01/13/20 25 01/13/2025 COMP. METAB OLIC PANEL (14) AST (SGOT) 16 IU/L 0-40 normal Not Available [facility] ([facility]) [address] [facility] [place], [address], 01/13/2025 11:07:43 01/13/20 25 01/13/2025 COMP. METAB OLIC PANEL (14) ALT (SGPT) 12 IU/L 0-32 normal Not Available [facility] ([facility]) [address] [place], [address], 01/13/2025 11:07:43 04/13/20 25 04/14/2025 CBC WITH DIFFE RENTI AL/PL ATELE T WBC 5.1 x10e3 /uL 3.4-10 .8 normal Not Available [facility] ([facility]) [address] [place], [address], 04/14/2025 06:10:46 04/13/20 25 04/14/2025 CBC WITH DIFFE RENTI AL/PL ATELE T RBC 4.05 x10e6 /uL 3.77-5 .28 normal Not Available [facility] ([facility]) [address] [place], [address], 04/14/2025 06:10:46 04/13/20 25 04/14/2025 CBC WITH DIFFE RENTI AL/PL ATELE T hemoglobin 12.9 g/dL 11.1-1 5.9 normal Not Available [facility] ([facility]) [address] [place], [address], 04/14/2025 06:10:46 04/13/20 25 04/14/2025 CBC WITH DIFFE RENTI AL/PL ATELE T hematocrit 34.4 % 34.0-4 6.6 normal Not Available [facility] ([facility]) [address] [place], [address], 04/14/2025 06:10:46 04/13/20 25 04/14/2025 CBC WITH DIFFE RENTI AL/PL ATELE T MCV 85 fL 79-97 normal Not Available [facility] ([facility]) [address] [place], [address], 04/14/2025 06:10:46 04/13/20 25 04/14/2025 CBC WITH DIFFE RENTI AL/PL ATELE T MCH 31.9 pg 26.6-3 3.0 normal Not Available [facility] ([facility]) [address] [place], [address], 04/14/2025 06:10:46 04/13/20 25 04/14/2025 CBC WITH DIFFE RENTI AL/PL ATELE T MCHC 37.5 g/dL 31.5-3 5.7 above high normal Not Available [facility] ([facility]) [address] [place], [address], 04/14/2025 06:10:46 04/13/20 25 04/14/2025 CBC WITH DIFFE RENTI AL/PL ATELE T RDW 13.0 % 11.7-1 5.4 Not Available [facility] ([facility]) [address] [place], [address], 04/14/2025 06:10:46 04/13/20 25 04/14/2025 CBC WITH DIFFE RENTI AL/PL ATELE T platelets 216 x10e3 /uL 150-45 0 normal Not Available [facility] ([facility]) [address] [facility], [place], [address], 04/14/2025 06:10:46 04/13/20 25 04/14/2025 CBC WITH DIFFE RENTI AL/PL ATELE T neutrophils 37 % not estab. normal Not Available [facility] ([facility]) [address] [facility], [place], [address], 04/14/2025 06:10:46 04/13/20 25 04/14/2025 CBC WITH DIFFE RENTI AL/PL ATELE T lymphs 52 % not estab. normal Not Available [facility] ([facility]) [address] [facility], [place], [address], 04/14/2025 06:10:46 04/13/20 25 04/14/2025 CBC WITH DIFFE RENTI AL/PL ATELE T monocytes 8 % not estab. normal Not Available [facility] ([facility]) [address] [facility], [place], [address], 04/14/2025 06:10:46 04/13/20 25 04/14/2025 CBC WITH DIFFE RENTI AL/PL ATELE T eos 2 % not estab. normal Not Available [facility] ([facility]) [address] [facility], [place], [address], 04/14/2025 06:10:46 04/13/20 25 04/14/2025 CBC WITH DIFFE RENTI AL/PL ATELE T basos 1 % not estab. normal Not Available [facility] ([facility]) [address] [place], [address], 04/14/2025 06:10:46 04/13/20 25 04/14/2025 CBC WITH DIFFE RENTI AL/PL ATELE T immature cells SECOND HELPER Not Available [facility] ([facility]) [address] [place], [address], 04/14/2025 06:10:46 04/13/20 25 04/14/2025 CBC WITH DIFFE RENTI AL/PL ATELE T neutrophils (absolute) 1.9 x10e3 /uL 1.4-7. 0 normal Not Available [facility] ([facility]) [address] [facility], [place], [address], 04/14/2025 06:10:46 04/13/2004/14/2025 CBC WITH DIFFE RENTI AL/PL ATELE T lymphs (absolute) 2.7 x10e3 /uL 0.7-3. 1 normal Not Available [facility] ([facility]) [address] [place], [address], 04/14/2025 06:10:46 04/13/20 25 04/14/2025 CBC WITH DIFFE RENTI AL/PL ATELE T monocytes(ab solute) 0.4 x10e3 /uL 0.1-0. 9 normal Not Available [facility] ([facility]) [address] [place], [address], 04/14/2025 06:10:46 04/13/20 25 04/14/2025 CBC WITH DIFFE RENTI AL/PL ATELE T eos (absolute) 0.1 x10e3 /uL 0.0-0. 4 normal Not Available [facility] ([facility]) [address] [place], [address], 04/14/2025 06:10:46 04/13/20 25 04/14/2025 CBC WITH DIFFE RENTI AL/PL ATELE T baso (absolute) 0.0 x10e3 /uL 0.0-0. 2 normal Not Available [facility] ([facility]) [address] [place], [address], 04/14/2025 06:10:46 04/13/20 25 04/14/2025 CBC WITH DIFFE RENTI AL/PL ATELE T immature granulocytes 0 % not estab. Not Available [facility] ([facility]) [address] [facility], [place], [address], 04/14/2025 06:10:46 04/13/20 25 04/14/2025 CBC WITH DIFFE RENTI AL/PL ATELE T immature grans (abs) 0.0 x10e3 /uL 0.0-0. 1 Not Available [facility] ([facility]) [address] [facility], [place], [address], 04/14/2025 06:10:46 04/13/20 25 04/14/2025 CBC WITH DIFFE RENTI AL/PL ATELE T NRBC SECOND HELPER Not Available [facility] ([facility]) [address] [facility], [place], [address], 04/14/2025 06:10:46 04/13/20 25 04/14/2025 CBC WITH DIFFE RENTI AL/PL ATELE T hematology comments: SECOND HELPER Not Available [facility] ([facility]) [address] [facility], [place], [address], 04/14/2025 06:10:46 04/13/20 25 04/14/2025 BASIC METAB OLIC PANEL (8) glucose 97 mg/dL 70-99 normal Not Available [facility] ([facility]) [address] [place], [address], 04/14/2025 06:10:47 04/13/20 25 04/14/2025 BASIC METAB OLIC PANEL (8) BUN 6 mg/dL 8-27 below low normal Not Available [facility] ([facility]) [address] [place], [address], 04/14/2025 06:10:47 04/13/20 25 04/14/2025 BASIC METAB OLIC PANEL (8) creatinine 0.51 mg/dL 0.57-1 .00 below low normal Not Available [facility] ([facility]) [address] [place], [address], 04/14/2025 06:10:47 04/13/20 25 04/14/2025 BASIC METAB OLIC PANEL (8) eGFR 94 mL/mi n/1.7 3 >59 normal Not Available [facility] ([facility]) [address] [place], [address], 04/14/2025 06:10:47 04/13/20 25 04/14/2025 BASIC METAB OLIC PANEL (8) BUN/creatini ne ratio 12 12-28 normal Not Available [facility] ([facility]) [address] [facility] [place], [address], 04/14/2025 06:10:47 04/13/20 25 04/14/2025 BASIC METAB OLIC PANEL (8) sodium 144 mmol/ L 134-14 4 normal Not Available [facility] ([facility]) [address] [facility], [place], [address], 04/14/2025 06:10:47 04/13/20 25 04/14/2025 BASIC METAB OLIC PANEL (8) potassium 3.1 mmol/ L 3.5-5. 2 below low normal Not Available [facility] ([facility]) [address] [place], [address], 04/14/2025 06:10:47 04/13/20 25 04/14/2025 BASIC METAB OLIC PANEL (8) chloride 102 mmol/ L 96-106 normal Not Available [facility] ([facility]) [address] [facility] [place], [address], 04/14/2025 06:10:47 04/13/20 25 04/14/2025 BASIC METAB OLIC PANEL (8) carbon dioxide, total 24 mmol/ L 20-29 normal Not Available [facility] ([facility]) [address] [facility] [place], [address], 04/14/2025 06:10:47 04/13/20 25 04/14/2025 BASIC METAB OLIC PANEL (8) calcium 9.6 mg/dL 8.7-10 .3 normal Not Available [facility] ([facility]) [address] [facility], [place], [address], 04/14/2025 06:10:47 04/01/20 25 04/01/2025 elect rocar diogr am No observ ation record ed. [address], [address], 04/02/2025 08:38:57 04/02/2004/01/2025 elect rocar diogr am No observ ation record ed. [email or web address] [address], [address], 04/06/2025 14:35:42 04/07/[address], face, w/o contr ast No observ ation record ed. [address], [address], 04/09/2025 13:21:48 04/07/[address], head, w/o contr ast No observ ation record ed. [address], [address], 04/09/2025 13:21:48 04/13/20 25 04/15/2025 elect rocar diogr am No observ ation record ed. [address], [address], 04/15/2025 08:55:45 04/13/20 25 04/13/2025 elect rocar diogr am No observ ation record ed. [address], [address], 04/13/2025 17:55:07 Result Notes None recorded. Problems Name Problem SNOMED Code Status Onset Date Resolution Date Notes Provider Name and Address Organization Details Recorded Time Hypertensive disorder 00705835 Active Anna villasenor, MICHAEL - [facility] 2 11:26:49 Hyperlipidemi a 45247882 Active Anna Yolanda jacklyn, MICHAEL - [facility] 2 11:27:40 Vitamin D deficiency 37040050 Active 2021 Jennifer Nava, PROFESSOR OF INDUSTRIAL TECHNOLOGY [address], [place], [address] , [place] - [facility] 2 14:21:11 Restless legs syndrome 83252655 Active 2021 Jennifer Nava, PROFESSOR [employer] INDUSTRIAL [employer]CHNOLOGY [address], [place], [address] , [place] - [facility] 2 14:27:46 Prediabetes 875317791 Active 2022 Jennifer Nava, PROFESSOR OF INDUSTRIAL [employer]CHNOLOGY [address], [place], [address] , [place] - [facility] 3 10:39:52 Problem Notes None recorded. Procedures Surgical History Date Name Laterality Status Provider Name and Address Organization Details Recorded Time 03/09/20 25 Advance Care Planning completed Anna Guerrero [place] - [facility] 03/09/2025 16:08:28 03/09/20 25 Functional Status Assessed completed Anna Guerrero [place] - [facility] 03/09/2025 16:08:28 08/28/19 25 Medication Reconcilliation completed Anna Guerrero [place] - [facility] 08/28/2024 08:40:02 03/19/20 24 Medication Reconcilliation completed Anna Guerrero MICHAEL - [facility] 03/19/2024 10:14:46 02/19/20 24 partial left hip replacement by prosthesis completed Anna Guerrero [place] - [facility] 03/19/2024 10:19:16 11/22/19 24 Advance Care Planning completed [place] Guerrero [place] - [facility] 11/22/2023 10:19:40 11/22/19 24 Functional [...] 13:55:22 Thyroid Lobectomy completed Becky RODRIGUEZ - [facility] 02/22/2022 13:55:32 Imaging Results None recorded. Procedure Notes None recorded. Medical Equipment None Reported. Allergies Allergen ID Allergen Name Allergen Category Reaction Reaction Severity Criticality Documentation Date Start Date Code Code System Note Provider Name and Address Organization Details Recorded Time 279022 Product containin g penicilli n (product) medicatio n Not available Not available Not available 02/22/2022 48345 8001 SNOMED MICHAEL Abdalla - [facility] 2 13:51:41 487386 Substance with sulfonami de structure and antibacte rial mechanism of action (substanc e) medicatio n fever moderate high 02/22/2022 89504 8003 SNOMED MICHAEL Abdalla - [facility] 2 10:26:26 498694 codeine medicatio n fever moderate high 02/22/2022 2670 RxNorm MICHAEL Abdalla [facility] 2 10:25:59 Medications Name Sig Start Date [...] Details Last Updated DateTime 5 162.56 cm 24.5 kg/m2 45805.7 1 g 52 /min 97 % 97 % 18 /min 0 130/80 mm[Hg] Anna Guerrero [facility] 16:49:03 Date Recorded Body height Provider Name an d Address Organization Details Last Updated DateTime 01/12/2025 162.56 cm Anna Guerrero [facility] 0 01/12/2025 13:29:56 Date Recorded Body height Body mass index (BMI) Body weight Heart rate Oxygen saturation Oxygen saturation in Arterial blood by Pulse oximetry Respiratory rate Pain severity - 0-10 verbal numeric rating [Score] - Reported Body temperature Systolic And Diastolic Provider Name and Address Organization Details Last Updated DateTime 5 162.56 cm 24.2 kg/m2 17569.5 2 g 79 /min 97 % 97 % 18 /min 0 98.1 [degF] 132/80 mm[Hg] Anna Guerrero [facility] 16:36:15 Date Recorded Body height Body mass index (BMI) Body weight Heart rate Oxygen saturation Oxygen saturation in Arterial blood by Pulse oximetry Respiratory rate Pain severity - 0-10 verbal numeric rating [Score] - Reported Systolic And Diastolic Provider Name and Address Organization Details Last Updated DateTime 5 162.56 cm 24.2 kg/m2 95886.5 2 g 76 /min 98 % 98 % 18 /min 3 200/98 mm[Hg] Anna Guerrero [facility] 16:38:35 Date Recorded Body height Body mass index (BMI) Body weight Body temperature Heart rate Oxygen saturation Oxygen saturation in Arterial blood by Pulse oximetry Respiratory rate Pain severity - 0-10 verbal numeric rating [Score] - Reported Systolic And Diastolic Provider Name and Address Organization Details Last Updated DateTime 5 162.56 cm 24.2 kg/m2 05815.5 2 g 98.2 [degF] 108 /min 98 [...] You Have Serious Difficulty Hearing? No [place] Information not available 02/21/2022 What Type Of [...] Or The Highest Degree You Have Received? [id number] Information not available 02/21/2022 Have There Been Any Changes To Your Family Or Social Situation? No Information not available 02/21/2022 What Is The Fluoride Status Of Your Home? Fluoridated Information not available 02/21/2022 Have You Recently Or Are You Planning To Travel To An Area With Zika Virus? No Information not available 02/21/2022 Do You Have A Medical Power Of Dairy Consultant? No Information not available 02/21/2022 What Was [...] Functional Status Question Answer Note LastModified by [employer] ion Details LastModified Time Do you use [...] anxious, or unable to sleep at night)? [id number] Information not available 02/21/2022 Do you have [...] Recorded Time zoster recombinant 4 completed Anna villasenor, [place] - [facility] 05/21/2024 10:40:04 Influenza, high-dose, quadrivalent, PF 3 completed Anna Guerrero null, [place] - [facility] 05/06/2023 10:50:38 Tdap 4 completed Anna Gu[place] - [facility] 08/13/2023 14:19:07 COVID-19, mRNA, LNP-S, PF, annika-sucrose, 30 mcg/0.3 mL 4 completed Anna Guerre[place] - [facility] 08/13/2023 14:20:08 Influenza, high-dose, trivalent, PF 4 completed Anna Guerre[place] - [facility] 05/22/2024 08:15:13 COVID-19, mRNA, LNP-S, PF, annika-sucrose, 30 mcg/0.3 mL 4 completed Anna Guerrero null, [place] - [facility] 05/22/2024 08:16:35 Pneumococcal conjugate PCV20, polysaccharide ORB618 conjugate, adjuvant, PF 5 completed Anna Guerrero null, [facility] 03/09/2025 18:42:08 Td (adult), 2 Lf tetanus toxoid, preservative free, adsorbed 6 completed Anna Guerrero null, [place] - [facility] 02/21/2022 08:33:05 pneumococcal polysaccharide PPV23 3 completed Anna Guerrero null, [facility] 02/21/2022 08:33:34 MMR 6 completed Anna Guerrero null, [facility] 02/21/2022 08:33:54 COVID-19, mRNA, LNP-S, PF, 100 mcg/0.5mL dose or 50 mcg/0.25mL dose 1 completed Anna Guerrero null, [facility] 07/24/2022 10:12:41 COVID-19, mRNA, LNP-S, PF, 100 mcg/0.5mL dose or 50 mcg/0.25mL dose 1 completed Anna Guerrero null, [facility] 07/24/2022 10:12:41 Influenza, split virus, trivalent, PF 0 completed Anna Guerrero null, [place] - [facility] 07/24/2022 10:12:41 COVID-19, mRNA, LNP-S, bivalent, PF, 50 mcg/0.5 mL or 25mcg/0.25 mL dose 2 completed Anna Guerrero null, [facility] 07/24/2022 10:12:42 Influenza, high-dose, quadrivalent, PF 2 completed Anna Guerrero null, [place] - [facility] 07/24/2022 10:12:42 zoster recombinant 4 completed Anna Guerrero null, [place] - [facility] 03/19/2024 10:16:44 Past Encounters Encounter ID Performer Location Encounter Start Date Encounter Closed Date Diagnosis/Indication Diagnosis SNOMED-CT Code Diagnosis ICD10 Code Diagnosis IMO Codes Diagnosis Note [id number] Jennifer Nava [address] [address] 02/22/2022 13:25:35 02/22/2022 14:52:44 Hypertensive disorder 71562975 I10 Hyperlipidemia 99454128 E78.5 Vitamin D deficiency 347 38310 E55.9 Heart murmur 93429419 R0 1.1 obtain records from [facility] for echo- pt states she had one but unsure of when [id number] Jennifer Nava [address] [address] 03/27/2022 14:37:33 03/27/2022 15:58:10 Thyroid stimulating hormone level below reference range 809613125 R94.6 Impaired f asting glycemia 263062526 R73.01 [id number] Jennifer Nava [address] [address] 04/24/2022 10:14:16 04/24/2022 11:06:53 Influenza vaccine needed 7516884980 106 Z23 Hypertensive disorder 38 028104 I10 Hyperlipidemia 97359328 E78.5 Restless l egs syndrome 30242513 G25.81 carbidopa2 5mg/levodo pa 100mg- 1/2 tab for 1 week the a 1/4 tab for one week and call when taper finished and will send new med Heart murmur 11656042 R0 1.1 [id number] Jennifer Nava [address] [address] 07/24/2022 10:01:35 07/24/2022 11:04:34 Hypertensive disorder 65073422 I10 Restless l egs syndrome 85610057 G25.81 Hyperlipidemia 54821025 E78.5 Vitamin D deficiency 347 76124 E55.9 Prediabetes 382934961 R7 3.03 [id number] Jennifer Nava [address] [address] 10/26/2022 09:42:34 10/26/2022 10:25:37 Prediabetes 561599489 R73.03 Hypertensive disorder 38 609418 I10 Restless l egs syndrome 78667414 G25.81 Hyperlipidemia 37237598 E78.5 Allergic rhinitis 362950 04 J30.9 [id number] Jennifer Nava [address] [address] 01/18/2023 10:35:05 01/18/2023 11:33:17 Prediabetes 150773104 R73.03 Restless l egs syndrome 73893537 G25.81 Hypertensive disorder 38 952660 I10 Hyperlipidemia 83230484 E78.5 [id number] [facility] [address] 05/06/2023 09:49:19 05/06/2023 10:44:47 Prediabetes 809904159 R73.03 labs next visit Hypertensive disorder 38 230894 I10 Vitamin D deficiency 347 83039 E55.9 Restless l egs syndrome 00565755 G25.81 Influenza vaccine needed 7580255056 106 Z23 [id number] [facility] [place] [address] 08/13/2023 10:21:32 08/13/2023 11:45:13 Hypertensive disorder 53011190 I10 Prediabetes 923761560 R7 3.03 Restless l egs syndrome 99406445 G25.81 Vitamin D deficiency 347 73809 E55.9 Hyperlipidemia 03015955 E78.5 Gastroesop hageal reflux disease without esophagitis 968765372 K21.9 Body mass index 25-29 - overweight 252346459 Z68.26 Overweight 335767254 E66 .3 Adult [facility] th examination 521926350 Z00.00 Exercises education, guidance, and counseling 317916691 Z71.82 At [facility] ed risk for falls 903003954 Z91.81 score 5 Active or passive immunization 396826690 Z23 [id number] [facility] [address] 11/22/2023 09:59:03 11/22/2023 10:50:57 Adult health examination 790622623 Z00.00 Depression screening 171 235161 Z13.31 A depression screening was completed via a standardiz ed screening tool. 5 minutes were spent discussing depression screening results and risk factors. Examinatio n of blood pressure 922079696 Z01.30 Diet education 07560868 Z71.3 Counseling 533732899 Z71 .82 Exercise counseling . Patient encouraged to exercise 30 minutes 5 days a week. At [facility] ed risk for falls 790531861 Z91.81 STEADI FAST screening score of . Advance care planning 71 2709570 Z71.89 Hypertensive disorder 38 177817 I10 Gastroesop hageal reflux disease without esophagitis 227859993 K21.9 Restless l egs syndrome 59650150 G25.81 Hyperlipidemia 59354905 E78.5 Body mass index 25-29 - overweight 886615695 Z68.26 Overweight 949640461 E66 .3 Osteoporos is screening declined 8664276721 82617 Z53.20 [id number] Jennifer Nava [address] [address] 03/19/2024 09:56:32 03/19/2024 10:54:58 Closed fracture of neck of left femur 6500509560 8342398 S72.022D continue ptfollow up with ortho [id number] Jennifer Nava[address] [address] 05/21/2024 10:13:59 05/21/2024 11:36:29 Influenza vaccine needed 1219994599 106 Z23 Administra tion of SARS-CoV-2 vaccine 1727287672 Z23 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 see cognitive testing sheets [id number] Jennifer Nava[address] [address] 07/02/2024 09:04:21 07/02/2024 11:12:58 Prediabetes 908316859 R73.03 Restless l egs syndrome 02582773 G25.81 Vitamin D deficiency 347 36617 E55.9 Hypertensive disorder 38 578253 I10 Gastroesop hageal reflux disease without esophagitis 011627814 K21.9 Hyperlipidemia 23210393 E78.5 [id number] Jennifer Nava[address] [address] 08/28/2024 08:37:59 08/28/2024 09:27:44 Body mass index 20-24 - normal 637689094 Z68.23 Acute hypokalemia 333162 03 E87.6 [facility] [id number] Jennifer Nava[address] [address] 01/05/2025 16:18:23 01/05/2025 17:18:37 Prediabetes 977212862 R73.03 labs Restless l egs syndrome 96207960 G25.81 labs Vitamin D deficiency 347 34408 E55.9 labs Hypertensive disorder 38 782199 I10 labs Hyperlipidemia 42950902 E78.5 labs [id number] Jennifer Nava[address] [address] 01/12/2025 13:27:57 01/12/2025 16:22:44 Hypokalemia 39609992 E87.6 [id number] [facility] N[facility] [address] 03/09/2025 16:16:49 03/09/2025 17:40:13 Adult health examination 709000789 Z00.00 Depression screening 171 806948 Z13.31 A depression screening was completed via a standardiz ed screening tool. 5 minutes were spent discussing depression screening results and risk factors. Examinatio n of blood pressure 946623859 Z01.30 Diet education 67860338 Z71.3 Counseling 415729912 Z71 .82 Exercise counseling . Patient encouraged to exercise 30 minutes 5 days a week. At [facility] ed risk for falls 092602704 Z91.81 STEADI FAST screening score of __10___. Advance care planning 71 4084213 Z71.89 Immunization due 7121192 08 Z23 6557891 Hearing loss 75609299 H9 1.90 553686 Normal weight 01539929 Z 68.24 7256341231 Body mass index 20-24 - normal 979213043 Z68.24 24845515 [id number] Jennifer Nava APRN [address] [address] 04/01/2025 16:11:33 04/01/2025 17:08:03 Hypertensive disorder 51671792 I10 increase irbesartan 75mg to bidcheck bp at home keep logif no improvemen t return Hematoma 990658210 T14.8 XXA 351415 if any symptoms worsen go to ed Irregular heart beat 361 640754 I49.9 [id number] Jennifer Nava APRN [address] [address] 04/13/2025 16:37:41 04/13/2025 17:30:29 Preoperative procedure 117057141 Z01.818 577061 moderate risk due to murmur and htn Diastolic murmur 4383800 1 I38 414917 murmur seems louder today, discussed with family/pt will order echo and then cardiologi st referral after results. Health Concerns Section Related Observation LastModified by Organization Detai ls LastModified Time None Recorded Concern Status LastModified by Organization Details LastModified Time None Recorded Advance Directives Directive N: Payers Insurance Date Sequence Insurance Name Policy Number Policy Thornton Covered Member ID Thornton Member ID Guarantor Name 04/13/2025 1 [employer] (MEDICARE REPLACEMENT/A DVANTAGE - PPO) Emma Guerrero [id number] Emma Guerrero Notes Date Note Type Note Provider Name and Address Organization Details Recorded Time 5 text/html 79 yr old female presents for a follow up on chronic conditions. due for labs. hx of pre dm,restless legs,htn,vit d def, and hyperlipidemia Jennifer Nava APRN [address], [place], [address], [place] - [facility] 01/05/2025 17:20:12 5 text/html 79 yr old female presents for lab work to follow up on low K+. Anna Guerrero null, [place] - [facility] 01/12/2025 13:31:54 5 text/html Medicare Annual Wellness VisitReported by [...] She would like to have hearing aids. Jennifer Nava APRN [address], [place], [address], [facility] - [facility] 03/09/2025 17:28:23 5 text/html ROS as noted in the HPI 80 yr old female presents with a facial injury x 2 weeks ago. She ran into a door facing/wood in the dark at home. She has a hematoma/bruised area to the left upper eye that will not go down/ clear up. She also has high bp in the office today. Jennifer Nava APRN [address], [place], [address], [facility] - [facility] 04/01/2025 17:06:29 5 text/html 80 yr old female presents for preop eval. surgery planed 04/20 at [facility] to evaluate hematoma. Jennifer Nava APRN [address], [place], [address], [facility] - [facility] 04/13/2025 17:30:11 OBGyn Episode No OBEpisode recorded.
--- NOTE | 2025-04-15 15:51 | XR_ITS ---
FINAL REPORT CLINICAL HISTORY: pre op surgical clearance related to age hx of hypertension COMPARISON: 10/16/2020 FINDINGS: CHEST 2 VIEWS PA AND LATERAL The heart is normal in size. The mediastinum is unremarkable. The lungs are clear. There is no pneumothorax. IMPRESSION: No acute process. Reviewed, Interpreted and Dictated by Jorge Marquez MD Transcribed by Marisa Hirsch Authenticated and [facility]
== END 2025-04-15 23:59 | disposition home or self-care (01) ==
LOC: RT 15:03
PROVIDERS: PCP Nurse Practitioner Family; Visit Provider Nurse Practitioner Family
DX: Z01.810 Encounter for preprocedural cardiovascular examination (principal); I08.0 Rheumatic disorders of both mitral and aortic valves; I11.9 Hypertensive heart disease without heart failure
CPT/HCPCS: 71046; 93306

== ENCOUNTER 2025-04-20 10:14 | Day surgery (SDC) | payer MEDICARE, SELFPAY ==
[2025-04-13 08:46] VITALS: BMI 25.6
[2025-04-14 08:14] VITALS: BMI 24.2
[2025-04-20] VITALS (9 sets, daily range): BP systolic 160–187; BP diastolic 80–96; PULSE 74–95; RESP 16–18; TEMP 36.2–36.9; O2SAT 96–99; BMI 24.2
[2025-04-20] MEDS: LACTATED RINGERS 1000ML 1,000 ML 25 ML IV (11:58)
[2025-04-20] MEDS: LIDOCAINE 1% W/EPI 1:100,000 20ML VIAL 20 ML (12:30)
--- NOTE | 2025-04-20 12:42 | P.OP_ITS ---
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 Then a 2 cm incision was made in the skin fold and then the underlying organizing hematoma was evacuated. Closure was accomplished with 5-0 nylon in simple interrupted fashion and a sterile dressing placed and the procedure concluded. All counts correct and blood loss was 0 Condition: stable Disposition: PACU Complications:: No complications
--- NOTE | 2025-04-20 12:49 | P.PNANES_ITS ---
[facility] Disclaimer: The information contained in this section may have been updated after the patient was seen, as this information can be updated by other users. Medical History CVA (cerebral vascular accident) Murmur Preoperative examination Hyperlipemia HTN (hypertension) HTN (hypertension) Diverticulitis Surgical History History of hysterectomy History of cholecystectomy History of back surgery History of hip surgery Family History Other Family history of CVA Family history of diabetes mellitus Social History (Updated 04/20/25 @ 11:36 by Kristan Nava RN) Smoking Status: Never smoker alcohol intake: never substance use type: denies use current occupational status: retired Travel in the last 8 weeks?: None household members: spouse Have you lived/traveled outside US in past 30 days?: No Contact w/someone who lives/traveled outside US past 30 days?: No Exposure to someone with infectious disease in past 14 days?: No Do you have a fever (greater than 100.4 F or 38 C)?: No Have you tested positive for COVID-19?: No Exposed to someone with COVID-19 in past 14 days?: No Do you have a sore throat?: No Do you have a cough?: No Do you have any weakness?: No Are you experiencing any nausea/vomitting?: No Do you have any diarrhea?: No Are you experiencing any unusual bleeding?: No Do you have any muscle aches/pain?: No Do you have any abdominal pain?: No Are you experiencing loss of taste or smell?: No [facility] Anesthesia Checklist Patient Identification Patient Identification: Arm Band and Verbal (Name & ) Structural Data Admitted From: Home Planned Operative Procedure/s: I&D of left frontal hematoma Consent for Planned Operative Procedure(s) Verified: Yes Verified Documents: Surgical Consent NPO Status Verified Time NPO: 00:00 Additional verifications Anesthesia Reactions: No Airway Assessment Mallampati Score:: Class II C-Spine Mobility Assessed: Yes TMJ Mobility Assessed: Yes Dentition: Edentulous Neurological Assessment Level of Consciousness: Awake, Alert and Appropriate Hx Seizures: No Numbness or tingling in extremities: No Anesthesia Plan Anesthesia Risk discussed: Yes Anesthesia Plan: Verified ASA Class: III Anesthesia Type: General
--- NOTE | 2025-04-20 12:50 | EXP.ANES.I ---
[facility] Anesthesia Record Part I Anesthesia Record I Intake, IV Amount: 200 Hydration: Adequate Estimated blood loss (mL): 0 Urine output (mL): 0 Blood Products used (#): none Blood Pressure: 161/91 SaO2: 97 Pulse Rate: 74 Airway Patency: Patent Respiratory Rate: 16 Temperature: 97.4 F Patient is:: Stable and Somnolent Stable to PACU at:: 12:45
== END 2025-04-20 13:46 | disposition home or self-care (01) ==
PROVIDERS: PCP Nurse Practitioner Family; Visit Provider Otolaryngology
DX: S05.12XA Contusion of eyeball and orbital tissues, left eye, initial encounter (principal); I10 Essential (primary) hypertension; E78.5 Hyperlipidemia, unspecified; W19.XXXA Unspecified fall, initial encounter; Z88.0 Allergy status to penicillin; Z88.2 Allergy status to sulfonamides; Z88.5 Allergy status to narcotic agent; Z88.8 Allergy status to other drugs, medicaments and biological substances; Z86.73 Personal history of transient ischemic attack (TIA), and cerebral infarction without residual deficits; Z79.899 Other long term (current) drug therapy
CPT/HCPCS: 67405; J2003; J2004; J2405; J2704; J3010; J7120

== ENCOUNTER 2025-06-19 03:33 | Emergency (ER) | payer MEDICARE, SELFPAY ==
[2025-06-19 03:43] VITALS: BP 190/78; PULSE 71; RESP 18; TEMP 36.6; O2SAT 98; BMI 25.8
--- NOTE | 2025-06-19 03:44 | CT_ITS ---
PROCEDURE INFORMATION: Exam: CT Cervical Spine Without Contrast Exam date and time: 06/19/2025 4:12 AM Age: 80 years old Clinical indication: Injury or trauma; Fall; Blunt trauma; Additional info: Fall, struck L eyebrow TECHNIQUE: Imaging protocol: Computed tomography of the cervical spine without contrast. Radiation optimization: All CT scans at this facility use at least one of these dose optimization techniques: automated exposure control; mA and/or kV adjustment per patient size (includes targeted exams where dose is matched to clinical indication); or iterative reconstruction. COMPARISON: CT CERVICAL SPINE WO CON 08/04/2024 8:55 AM FINDINGS: Bones: Diffuse cervical spondylosis is noted. Hypertrophic changes of the facet present bilaterally. Discs/Spinal canal/Neural foramina: Narrowing of multiple intervertebral disc spaces are seen. Moderate neural foraminal narrowing is also noted. Lungs: Lung apices are normal. Vasculature: No obvious traumatic injury is seen. Soft tissues: 1.8 cm hypodensity in the left thyroid gland.. . IMPRESSION: 1. No evidence of acute traumatic injury. 2. Diffuse cervical spondylosis. 3. 1.8 cm hypodensity in the left thyroid gland. No follow-up is recommended.
--- NOTE | 2025-06-19 03:44 | CT_ITS ---
PROCEDURE INFORMATION: Exam: CT Head Without Contrast Exam date and time: 06/19/2025 4:10 AM Age: 80 years old Clinical indication: Injury or trauma; Fall; Blunt trauma (contusions or hematomas); Additional info: Fall, struck L eyebrow TECHNIQUE: Imaging protocol: Computed tomography of the head without contrast. Radiation optimization: All CT scans at this facility use at least one of these dose optimization techniques: automated exposure control; mA and/or kV adjustment per patient size (includes targeted exams where dose is matched to clinical indication); or iterative reconstruction. COMPARISON: CT HEAD WO 04/07/2025 9:33 AM FINDINGS: Brain: Calcifications of the basal ganglia are noted bilaterally. There is diffuse prominence of the cerebral sulci, cisterns, and ventricles consistent with atrophy. No intra or extra-axial fluid collections are noted. No mass or mass effect is seen. Periventricular white matter hypoattenuation is seen consistent with small vessel disease. Cerebral ventricles: No ventriculomegaly. Paranasal sinuses: Visualized sinuses are unremarkable. No fluid levels. Mastoid air cells: Visualized mastoid air cells are well aerated. Bones: No fracture identified. Soft tissues: Left frontal periorbital cephalohematoma. IMPRESSION: No acute process identified.
--- NOTE | 2025-06-19 03:46 | [facility].EDGENADL ---
Discharge Plan Disposition Patient Disposition: Home, Self-Care Condition: Good Prescriptions Prescriptions: No Action ropinirole 0.5 mg tablet 0.5 mg PO HS Patient Comments: TAKE ONE (1) TABLET EVERY DAY BY ORAL ROUTE AT BEDTIME FOR 30 DAYS. metoprolol tartrate 50 mg Tablet 50 mg PO BID 30 Days Qty: 60 0RF irbesartan 75 mg Tablet 75 mg PO DAILY Qty: 30 0RF diphenhydramine HCl 25 MG tablet 25 mg PO DAILY PRN (Reason: Allergy symptoms) Qty: 30 0RF omeprazole 40 MG capsule,delayed release(DR/EC) 40 mg PO DAILY simvastatin 20 MG tablet 20 mg PO HS Referrals Follow up/Referrals: Jennifer Nava APRN [Primary Care Provider, Medical] - See instructions Activity Restrictions/Add. Instructions Additional Instructions/Restrictions: You were evaluated in the ER and are believed to be appropriate for discharge at this time. Keep the wounds clean and dry. You can shower and bathe like normal. Twice daily gently clean the wounds with warm, soapy water. Pat dry. Apply the bacitracin ointment twice daily until healed. The stitches in the left eyebrow will absorb and fall out on their own. The stitches in the left hand need to be removed in 7 to 10 days. You have a small nodule in the thyroid that can be reevaluated by your PCP. Please make an appointment with your primary care doctor for reevaluation of your wounds and of the thyroid nodule. Return to the ER with any new, worsening, or otherwise concerning symptoms including but not limited to findings of infection. Clinical Impressions Clinical Impression: Fall, Laceration of eyebrow, left, Laceration of hand, left, Thyroid nodule Instructions Patient Instructions: DI for Laceration Repair Print Language Print Language: Greek Discharge ED Provider: Kenrick Guidry General Adult HPI General Chief complaint: Wound/Laceration Stated complaint: AO 0200, fell, lac lt eye, lt hand Time Seen by Provider: 06/19/25 03:38 History of Present Illness HPI narrative: 80-year-old female with history of hypertension, hyperlipidemia, right bundle branch block presents to the ER for evaluation of lacerations after fall. Patient reports she was up tonight in the kitchen and did not olive picker her feet high enough so she tripped, falling. She struck her left eyebrow and the back of the left hand. She denies loss of consciousness. Denies taking blood thinners. States she has a stinging sensation above the left eyebrow and in the back of the left hand where she has lacerations but has no other complaints or concerns. No numbness, tingling, or weakness. No dizziness or neurologic deficits, no chest pain or difficulty breathing, no abdominal pain, nausea, vomiting, or diarrhea, no dysuria or hematuria, no fevers or chills, no cough or congestion. No other associated symptoms. Unsure of last tetanus booster but review of records demonstrates it was administered in July 2023. Related Data Home Medications ?Medication ?Instructions ?Recorded ?Confirmed omeprazole 40 mg capsule,delayed 40 mg PO DAILY 10/16/20 04/20/25 release simvastatin 20 mg tablet 20 mg PO HS 10/16/20 04/20/25 ropinirole 0.5 mg tablet 0.5 mg PO HS 08/17/24 04/20/25 Previous Rx's ?Medication ?Instructions ?Recorded diphenhydramine HCl 25 mg tablet 25 mg PO DAILY PRN Allergy 08/19/24 symptoms #30 tabs irbesartan 75 mg tablet 75 mg PO DAILY #30 tabs 08/19/24 metoprolol tartrate 50 mg tablet 50 mg PO BID 30 days #60 tabs 08/19/24 Allergies Allergy/AdvReac Type Severity Reaction Status Date / Time ondansetron Allergy Severe Confusion Verified 04/20/25 11:47 Penicillins Allergy Unknown Verified 04/20/25 11:47 allergy reaction Sulfa (Sulfonamide Allergy Unknown Verified 04/20/25 11:47 Antibiotics) allergy reaction oxycodone (From Percocet) AdvReac Mild Flushing Verified 04/20/25 11:47 morphine AdvReac Confusion Verified 04/20/25 11:47 [facility] Disclaimer: The information contained in this section may have been updated after the patient was seen, as this information can be updated by other users. Medical History (Updated 06/19/25 @ 05:39 by Kenrick Guidry MD) CVA (cerebral vascular accident) Murmur Preoperative examination Hyperlipemia HTN (hypertension) HTN (hypertension) Diverticulitis Surgical History History of hysterectomy History of cholecystectomy History of back surgery History of hip surgery Family History Other Family history of CVA Family history of diabetes mellitus Social History (Updated 04/20/25 @ 11:36 by Kristan Nava RN) Smoking Status: Never smoker alcohol intake: never substance use type: denies use current occupational status: retired Travel in the last 8 weeks?: None household members: spouse Have you lived/traveled outside [place] in past 30 days?: No Contact w/someone who lives/traveled outside US past 30 days?: No Exposure to someone with infectious disease in past 14 days?: No Do you have a fever (greater than 100.4 F or 38 C)?: No Have you tested positive for COVID-19?: No Exposed to someone with COVID-19 in past 14 days?: No Do you have a sore throat?: No Do you have a cough?: No Do you have any weakness?: No Do you have any diarrhea?: No Are you experiencing any unusual bleeding?: No Do you have any muscle aches/pain?: No Do you have any abdominal pain?: No Are you experiencing loss of taste or smell?: No Other Medical History Have you received the Flu Vaccine for this season: No Have you received the Pneumonia Vaccine: Yes ROS Obtained: Yes Systems reviewed as appropriate & no additional complaints except as documented Per HPI Physical Exam General General appearance: alert and in no apparent distress Head Head exam: normocephalic and other (Laceration with small associated hematoma just superior to the left eyebrow. Laceration is approximately 2 cm in length, hemostatic) Eye Eye exam: Present PERRL and EOMI; Absent jaundice or conjunctival injection ENT ENT exam: Present mucous membranes moist Neck Neck exam: Present normal inspection and full ROM; Absent tenderness Chest Chest inspection: Present symmetric chest wall rise; Absent tenderness Respiratory Respiratory exam: Present normal lung sounds bilaterally; Absent respiratory distress, wheezes or stridor Cardiovascular Cardiovascular exam: Present regular rate and normal rhythm Abdominal Exam Abdominal exam: Present soft; Absent distention, tenderness, guarding or rebound Extremities Exam Extremities exam: Present full ROM and normal capillary refill; Absent edema or joint swelling Expanded Upper Extremity Exam Left: Hand exam: Present laceration Hand L/R back image:  1. 8 cm flap, skin tear type laceration with gaping, hemostatic, no associated crepitus or deformity, full range of motion, neurovascularly intact 2. 2 cm laceration with gaping, hemostatic, no associated crepitus or deformity, full range of motion, neurovascularly intact 3. 1 cm skin tear, hemostatic with no other associated injury Back Exam Back exam: Absent tenderness, CVA tenderness (R), CVA tenderness (L) or vertebral tenderness Neurological Exam Neurological exam: Present alert and oriented X3; Absent motor sensory deficit Psychiatric Psychiatric exam: Present normal affect and normal mood Skin Skin exam: Present warm and dry Medical Decision Making Medical Records Medical records reviewed: Yes I reviewed the patient's medical records. Screening: Per USPSTF and CDC recommendations, given the prevalence of disease in our region, it is our hospital?s policy to screen for HIV and viral Hepatitis for all patients aged 18 and over and those with ongoing risk factors. Steffen Inquiry Pt receiving controlled substance: No Vital Signs: 06/19/25 03:43 06/19/25 05:39 Temperature 97.9 F 98.8 F Temperature Source Oral Oral Pulse Rate 88 Pulse Rate [Right] 71 Respiratory Rate 18 18 Blood Pressure 178/78 H Blood Pressure [Right Arm] 190/78 H Blood Pressure Mean [Right Arm] 115 02 Sat by Pulse Oximetry 98 Oxygen Delivery Method Room Air Room Air Orders (Tests/Meds): ED MEDICATIONS Discontinued Medications Generic Name Dose Route Start Last Admin Trade Name Freq PRN Reason Stop Dose Admin Bacitracin 1 gm 06/19/25 05:35 Bacitracin Zinc Oint 30gm Tube TP 06/19/25 05:36 ONCE ONE Cocaine HCl 2 ml 06/19/25 03:44 06/19/25 03:54 Cocaine 4% Topical Soln 4ml Bottle TP 06/19/25 03:45 2 ml ONCE ONE Administration Epinephrine HCl 2 mg 06/19/25 03:44 06/19/25 03:54 Epinephrine 1 Mg/Ml Vial TP 06/19/25 03:45 2 mg ONCE ONE Administration Lidocaine HCl 2 ml 06/19/25 03:44 06/19/25 03:54 Lidocaine 2% Urojet 10ml TP 06/19/25 03:45 2 ml ONCE ONE Administration Lidocaine/Epinephrine 10 ml 06/19/25 05:34 06/19/25 05:35 Lidocaine 1% W/Epi 1:100,000 20ml Vial IM 06/19/25 05:35 10 ml ONCE ONE Administration ORDERS Category Date Time Status CT cervical spine wo con Stat Cat Scan 06/19/25 03:[address] head/brain wo con Stat Cat Scan 06/19/25 03:44 Completed CXR --portable [XR chest portable] Stat Exams 06/19/25 03:48 Completed Hand XR left 2 views [XR hand LT 2V] Stat Exams 06/19/25 03:47 Completed Pelvis XR 1-2 views [XR pelvis 1-2V] Stat Exams 06/19/25 03:48 Completed Medical Decision Narrative: In summary, this 80-year-old female with comorbidities described in the HPI presents to the emergency department today with laceration above the left eyebrow and on the back of the left hand after mechanical fall. On initial evaluation patient is hypertensive but otherwise hemodynamically stable, afebrile, GCS 15, airway patent, bilateral breath sounds present, 2+ pulses, exam is notable for laceration above left eyebrow and on the back of the left hand as described in physical exam. Remainder of exam unremarkable without other traumatic injury. Differential diagnosis includes but is not limited to osseous injury of the hand, laceration, I considered foreign body but appreciate no evidence of this on exploration of the wounds, I considered skull fracture, intracranial bleed, C-spine injury especially given patient's advanced age. Based on these concerns, I ordered CT head and C-spine, chest x-ray, pelvis x-ray, x-ray left hand. I do not believe hematologic or serum labs are indicated at this time since patient has no other associated symptoms or concerns and describes a mechanical fall. Lidocaine/epinephrine/cocaine topical was applied to the lacerations after they had been cleaned with saline XR personally interpreted demonstrates no acute traumatic injury in the chest, pelvis x-ray demonstrates bilateral hip replacement but no osseous injury, left hand x-ray personally interpreted does not demonstrate acute osseous injury but there are degenerative changes at the base of the thumb. See radiology read for final interpretations. CT imaging personally interpreted demonstrate no acute intracranial bleed, mass, or midline shift, no obvious fracture, CT cervical spine without acute osseous injury, mild degenerative changes present. See radiology read for final interpretation. Radiology read does comment on thyroid nodule of which patient and family were informed and instructed to follow-up. I repaired the left eyebrow and left hand lacerations. See procedure note for details. Patient tolerated procedure well. Bacitracin applied to the wounds. Wound care instructions were given to patient and family at bedside. Suture removal instructions were given to patient and family at bedside. Patient and family were given instructions on symptomatic management, follow up instructions, and return precautions for the emergency department. They indicated understanding and she was discharged in stable condition. Procedures Risk/Benefits of Procedure(s) Were Explained: Yes Laceration Laceration 1: Site: hand Side (If applicable): left Size (cm): 8 Description: flap, irregular and clean Depth: simple, single layer Local Anesthetic: lidocaine 1%, with epi and other anesthetic (Topical L/E/C cream also applied) Amount of anesthesia used (mL): 4 Pre-repair: wound explored, irrigated extensively and deep structures intact Skin layer closed with: nylon Size (cm): 4-0 Number of sutures: 13 (2 series of locked running sutures and 1 horizontal mattress) Technique: running and horizontal mattress Laceration 2: Site: hand Side (If applicable): left Size (cm): 2 Description: linear Depth: simple, single layer Local Anesthetic: lidocaine 1% and with epi Amount of anesthesia used (mL): 2 Pre-repair: wound explored and irrigated extensively Skin layer closed with: nylon Size (cm): 4-0 Number of sutures: 5 Technique: running Laceration 3: Site: face Side (If applicable): left (Eyebrow) Size (cm): 2 Description: linear Depth: simple, single layer Local Anesthetic: other anesthetic (Topical lidocaine/epinephrine/cocaine ointment) Pre-repair: wound explored and irrigated extensively Skin layer closed with: other (Fast gut) Size (cm): 5-0 Number of sutures: 5 Technique: running Critical Care Critical Care Time Critical Care Time: No
--- NOTE | 2025-06-19 03:47 | XR_ITS ---
PROCEDURE INFORMATION: Exam: XR Left Hand Exam date and time: 06/19/2025 3:59 AM Age: 80 years old Clinical indication: Injury or trauma; Fall; Blunt trauma (contusions or hematomas); Hand; Left; Additional info: Fall, lac to back of hand TECHNIQUE: Imaging protocol: Radiologic exam of the left hand. Views: 1 or 2 views. COMPARISON: No relevant prior studies available. FINDINGS: Bones/joints: No acute fracture. No dislocation. Degenerative changes in the interphalangeal joints and at the base of the thumb. Soft tissues: Normal. IMPRESSION: 1. No acute findings. 2. 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
--- NOTE | 2025-06-19 03:48 | XR_ITS ---
PROCEDURE INFORMATION: Exam: XR Pelvis Exam date and time: 06/19/2025 3:59 AM Age: 80 years old Clinical indication: Injury or trauma; Fall; Blunt trauma (contusions or hematomas); Bilateral; Pelvic region TECHNIQUE: Imaging protocol: Radiologic exam of the pelvis. Views: 1 or 2 view. COMPARISON: CT ABDOMEN PELVIS W CON 08/16/2024 7:43 PM FINDINGS: Bones/joints: Intact bilateral total hip arthroplasties. No acute fracture. No dislocation. Degenerative changes in the spine. Soft tissues: Unremarkable. IMPRESSION: No acute findings.
--- NOTE | 2025-06-19 03:48 | XR_ITS ---
PROCEDURE INFORMATION: Exam: XR Chest Exam date and time: 06/19/2025 3:59 AM Age: 80 years old Clinical indication: Injury or trauma; Fall; Blunt trauma (contusions or hematomas) TECHNIQUE: Imaging protocol: Radiologic exam of the chest. Views: 1 view. COMPARISON: CR XR CHEST 2V 04/15/2025 3:57 PM FINDINGS: Lungs: Unremarkable. No consolidation. Pleural spaces: Unremarkable. No pleural effusion. No pneumothorax. Heart/Mediastinum: Unremarkable. No cardiomegaly. Bones/joints: Unremarkable. IMPRESSION: No acute findings.
--- OUTSIDE RECORDS SUMMARY | 2025-06-19 03:49 | XMS_ITS | Continuity of Care Document ---
Author Organization [facility] [place] Alison Rodriguez [facility] Address [address] [place] [address] Care Team Providers Care Senior Net Architect Name Role Phone ESPINOZA NAVA Primary Care Provider Assessment No assessment recorded. Plan of Treatment Reminders Order Date Submit Date Provider Last Modified By Organization Details Last Modified Time Details Appointments None recorded. Lab CBC w/ auto diff 2024 025 [facility], [address], Kristian F, [place], [address], 06:10:46 BMP, serum or plasma 2024 025 [facility], [address], Kristian [address], [place], [address], 06:10:47 Referral None recorded. Procedures None recorded. Surgeries None recorded. Imaging electrocard iogram 2024 025 [facility], [address] [place] [address], [id number], 17:55:07 US, echocardiog britta 2024 025 [facility] (Scheduling), [address], [place], [address], 23:38:53 Medication Orders None recorded. Patient TargetsNo targets recorded. Patient InstructionsNo instructions recorded. Reason for Referral None Reported. Results Created Date Observation Date Name Description Value Unit Range Abnormal Flag Note LastModifiedBy Organization Detail LastModifiedTime 04/13/20 25 04/14/2025 CBC WITH DIFFE RENTI AL/PL ATELE T WBC 5.1 x10e3 /uL 3.4-10 .8 normal Not Available [facility] ([facility]) [address] [facility], [place], [address], 04/14/2025 06:10:46 04/13/20 25 04/14/2025 CBC WITH DIFFE RENTI AL/PL ATELE T RBC 4.05 x10e6 /uL 3.77-5 .28 normal Not Available [facility] ([facility]) [address] [place], [address], 04/14/2025 06:10:46 04/13/20 25 04/14/2025 CBC WITH DIFFE RENTI AL/PL ATELE T hemoglobin 12.9 g/dL 11.1-1 5.9 normal Not Available [facility] ([facility]) [address] [facility], [place], [address], 04/14/2025 06:10:46 04/13/20 25 04/14/2025 CBC WITH DIFFE RENTI AL/PL ATELE T hematocrit 34.4 % 34.0-4 6.6 normal Not Available [facility] ([facility]) [address] [place], [address], 04/14/2025 06:10:46 04/13/20 25 04/14/2025 CBC WITH DIFFE RENTI AL/PL ATELE T MCV 85 fL 79-97 normal Not Available [facility] ([facility]) [address] [place], [address], 04/14/2025 06:10:46 04/13/20 25 04/14/2025 CBC WITH DIFFE RENTI AL/PL ATELE T MCH 31.9 pg 26.6-3 3.0 normal Not Available [facility] ([facility]) [address] [place], [address], 04/14/2025 06:10:46 04/13/20 25 04/14/2025 CBC WITH DIFFE RENTI AL/PL ATELE T MCHC 37.5 g/dL 31.5-3 5.7 above high normal Not Available [facility] ([facility]) [address] [facility], [place], [address], 04/14/2025 06:10:46 04/13/20 25 04/14/2025 CBC WITH DIFFE RENTI AL/PL ATELE T RDW 13.0 % 11.7-1 5.4 Not Available [facility] ([facility]) [address] [facility], [place], [address], 04/14/2025 06:10:46 04/13/20 25 04/14/2025 CBC WITH DIFFE RENTI AL/PL ATELE T platelets 216 x10e3 /uL 150-45 0 normal Not Available [facility] ([facility]) [address] [facility], [place], [address], 04/14/2025 06:10:46 04/13/20 25 04/14/2025 CBC WITH DIFFE RENTI AL/PL ATELE T neutrophils 37 % not estab. normal Not Available [facility] ([facility]) [address] [facility], [place], [address], 04/14/2025 06:10:46 04/13/20 25 04/14/2025 CBC WITH DIFFE RENTI AL/PL ATELE T lymphs 52 % not estab. normal Not Available [facility] ([facility]) [address] [facility], [place], [address], 04/14/2025 06:10:46 04/13/20 25 04/14/2025 CBC WITH DIFFE RENTI AL/PL ATELE T monocytes 8 % not estab. normal Not Available [facility] ([facility]) [address] [facility], [place], [address], 04/14/2025 06:10:46 04/13/20 25 04/14/2025 CBC WITH DIFFE RENTI AL/PL ATELE T eos 2 % not estab. normal Not Available [facility] ([facility]) [address] [facility], [place], [address], 04/14/2025 06:10:46 04/13/20 25 04/14/2025 CBC WITH DIFFE RENTI AL/PL ATELE T basos 1 % not estab. normal Not Available [facility] ([facility]) [address] [facility], [place], [address], 04/14/2025 06:10:46 04/13/2004/14/2025 CBC WITH DIFFE RENTI AL/PL ATELE T immature cells INTEGRATIVE MEDICINE PHYSICIAN Not Available [facility] ([facility]) [address] [place], [address], 04/14/2025 06:10:46 04/13/20 25 04/14/2025 CBC WITH DIFFE RENTI AL/PL ATELE T neutrophils (absolute) 1.9 x10e3 /uL 1.4-7. 0 normal Not Available [facility] ([facility]) [address] [place], [address], 04/14/2025 06:10:46 04/13/20 25 04/14/2025 CBC WITH DIFFE RENTI AL/PL ATELE T lymphs (absolute) 2.7 x10e3 /uL 0.7-3. 1 normal Not Available [facility] ([facility]) [address] [place], [address], 04/14/2025 06:10:46 04/13/20 25 04/14/2025 CBC WITH DIFFE RENTI AL/PL ATELE T monocytes(ab solute) 0.4 x10e3 /uL 0.1-0. 9 normal Not Available [facility] ([facility]) [address] [place], [address], 04/14/2025 06:10:46 04/13/20 25 04/14/2025 CBC WITH DIFFE RENTI AL/PL ATELE T eos (absolute) 0.1 x10e3 /uL 0.0-0. 4 normal Not Available [facility] ([facility]) [address] [facility], [place], [address], 04/14/2025 06:10:46 04/13/20 25 04/14/2025 CBC WITH DIFFE RENTI AL/PL ATELE T baso (absolute) 0.0 x10e3 /uL 0.0-0. 2 normal Not Available [facility] ([facility]) [address] [facility], [place], [address], 04/14/2025 06:10:46 04/13/20 25 04/14/2025 CBC WITH DIFFE RENTI AL/PL ATELE T immature granulocytes 0 % not estab. Not Available [facility] ([facility]) [address] [facility], [place], [address], 04/14/2025 06:10:46 04/13/20 25 04/14/2025 CBC WITH DIFFE RENTI AL/PL ATELE T immature grans (abs) 0.0 x10e3 /uL 0.0-0. 1 Not Available [facility] ([facility]) [address] [facility], [place], [address], 04/14/2025 06:10:46 04/13/20 25 04/14/2025 CBC WITH DIFFE RENTI AL/PL ATELE T NRBC INTEGRATIVE MEDICINE PHYSICIAN Not Available [facility] ([facility]) [address] [facility], [place], [address], 04/14/2025 06:10:46 04/13/20 25 04/14/2025 CBC WITH DIFFE RENTI AL/PL ATELE T hematology comments: INTEGRATIVE MEDICINE PHYSICIAN Not Available [facility] ([facility]) [address] [facility], [place], [address], 04/14/2025 06:10:46 04/13/20 25 04/14/2025 BASIC METAB OLIC PANEL (8) glucose 97 mg/dL 70-99 normal Not Available [facility] ([facility]) [address] [place], [address], 04/14/2025 06:10:47 04/13/20 25 04/14/2025 BASIC METAB OLIC PANEL (8) BUN 6 mg/dL 8-27 below low normal Not Available [facility] ([facility]) [address] [place], [address], 04/14/2025 06:10:47 04/13/2004/14/2025 BASIC METAB OLIC PANEL (8) creatinine 0.51 mg/dL 0.57-1 .00 below low normal Not Available [facility] ([facility]) [address] [place], [address], 04/14/2025 06:10:47 04/13/20 25 04/14/2025 BASIC METAB OLIC PANEL (8) eGFR 94 mL/mi n/1.7 3 >59 normal Not Available [facility] ([facility]) [address] [place], [address], 04/14/2025 06:10:47 04/13/20 25 04/14/2025 BASIC METAB OLIC PANEL (8) BUN/creatini ne ratio 12 12-28 normal Not Available [facility] ([facility]) [address] [place], [address], 04/14/2025 06:10:47 04/13/20 25 04/14/2025 BASIC METAB OLIC PANEL (8) sodium 144 mmol/ L 134-14 4 normal Not Available [facility] ([facility]) [address] [place], [address], 04/14/2025 06:10:47 04/13/20 25 04/14/2025 BASIC METAB OLIC PANEL (8) potassium 3.1 mmol/ L 3.5-5. 2 below low normal Not Available [facility] ([facility]) [address] [facility], [place], [address], 04/14/2025 06:10:47 04/13/20 25 04/14/2025 BASIC METAB OLIC PANEL (8) chloride 102 mmol/ L 96-106 normal Not Available [facility] ([facility]) [address] [facility], [place], [address], 04/14/2025 06:10:47 04/13/20 25 04/14/2025 BASIC METAB OLIC PANEL (8) carbon dioxide, total 24 mmol/ L 20-29 normal Not Available [facility] ([facility]) [address] [facility], [place], [address], 04/14/2025 06:10:47 04/13/20 25 04/14/2025 BASIC METAB OLIC PANEL (8) calcium 9.6 mg/dL 8.7-10 .3 normal Not Available [facility] ([facility]) [address] [facility], [place], [address], 04/14/2025 06:10:47 04/01/20 25 04/01/2025 elect rocar diogr am No observ ation record ed. [address], [address], 04/02/2025 08:38:57 04/02/20 25 04/01/2025 elect rocar diogr am No observ ation record ed. [address], [address], 04/06/2025 14:35:42 04/07/20 CT, face, w/o contr ast No observ ation record ed. [address], [place], [address], 04/09/2025 13:21:48 04/07/20 CT, head, w/o contr ast No observ ation record ed. [facility] [address], [place], [address], 04/09/2025 13:21:48 04/13/20 25 04/15/2025 elect rocar diogr am No observ ation record ed. [address], [address], 04/15/2025 08:55:45 04/13/2004/13/2025 elect rocar diogr am No observ ation record ed. [email or web address] [address], [place], [address], 04/21/2025 11:44:14 04/16/2004/15/2025 XR, chest , 2 view No observ ation record ed. [facility] [address], [place], [address], 04/16/2025 08:27:01 04/17/2004/15/2025 , [facility] ardio gram No observ ation record ed. [facility] [address], [place], [address], 04/19/2025 10:41:46 Result Notes None recorded. Problems Name Problem SNOMED Code Status Onset Date Resolution Date Notes Provider Name and Address Organization Details Recorded Time Hypertensive disorder 87762405 Active Anna Guerrero null, [place] - [facility] 11:26:49 Hyperlipidemi a 62889953 Active Anna Guerre[place] - [facility] 11:27:40 Vitamin D deficiency 40074763 Active 2021 Espinoza Nava, [employer] [address], [place], [address] , [place] - [facility] 2 14:21:11 Restless legs syndrome 03933407 Active 2021 Espinoza Nava, [employer] [address], [place], [address] , [place] - [facility] 14:27:46 Prediabetes 284009790 Active 2022 Espinoza Nava, [employer] [address], [place], [address] , [place] - [facility] 3 10:39:52 Problem Notes None recorded. Procedures Surgical History Date Name Laterality Status Provider Name and Address Organization Details Recorded Time 03/09/20 25 Advance Care Planning completed Anna Guerrero [place] - [facility] 03/09/2025 16:08:28 03/09/20 25 Functional Status Assessed completed Anna Guerrero [place] - [facility] 03/09/2025 16:08:28 08/28/19 25 Medication Reconcilliation completed Anna Guerrero [place] - [facility] 08/28/2024 08:40:02 03/19/20 24 Medication Reconcilliation completed Anna Guerrero [place] - [facility] 03/19/2024 10:14:46 02/19/20 24 partial left hip replacement by prosthesis completed Anna Guerrero [place] - [facility] 03/19/2024 10:19:16 11/22/19 24 Advance Care Planning completed Anna Guerrero [place] - [facility] 11/22/2023 10:19:40 11/22/19 24 Functional Status Assessed completed Anna Guerrero [place] - [facility] 11/22/2023 10:19:40 10/14/19 21 Hip Replacement completed Anna Guerrero [place] - [facility] 02/16/2022 11:28:41 07/15/19 18 Date of Last Colonoscopy completed Anna Guerrero [place] - [facility] 02/22/2022 13:53:07 07/15/19 15 Back Surgery completed Anna Guerrero [place] - [facility] 02/21/2022 08:39:52 Carpal tunnel surgery completed Anna Guerrero [place] - [facility] 02/22/2022 13:55:02 cholecystectomy completed Anna RODRIGUEZ - [facility] 02/22/2022 13:55:11 appendectomy completed Anna Guerrero [place] - [facility] 02/22/2022 13:55:22 Thyroid Lobectomy completed Becky Guerrero [place] - [facility] 02/22/2022 13:55:32 incision and drainage of hematoma completed Anna RODRIGUEZ - [facility] 05/11/2025 16:47:20 Imaging Results None recorded. Procedure Notes None recorded. Medical Equipment None Reported. Allergies Allergen ID Allergen Name Allergen Category Reaction Reaction Severity Criticality Documentation Date Start Date Code Code System Note Provider Name and Address Organization Details Recorded Time 798745 Product containin g penicilli n (product) medicatio n Not available Not available Not available 02/22/2022 41484 8001 SNOMED Anna villasenor, [place] - [facility] 13:51:41 064716 Substance with sulfonami de structure and antibacte rial mechanism of action (substanc e) medicatio n fever moderate high 02/22/2022 90365 8003 SNOMED Anna villasenor, [place] - [facility] 10:26:26 804925 codeine medicatio n fever moderate high 02/22/2022 [...] ONE (1) TABLET BY MOUTH EVERY DAY active Not Available Not Available No t Available ropinirole 0.5 mg tablet TAKE ONE (1) TABLET BY MOUTH EVERY NIGHT AT BEDTIME active Not Available Not Available No t Available metoprolol tartrate 50 mg tablet TAKE ONE (1) TABLET BY MOUTH TWICE DAILY active Not Available Not Available No t Available irbesartan 75 mg tablet Take 1 tablet twice a day by oral route for 90 days. 05/11 completed Not Available Not Available Not Available mupirocin 2 % topical ointment APPLY A SMALL AMOUNT TO THE AFFECTED AREA BY TOPICAL ROUTE THREE (3) TIMES PER DAY 11/09 completed Not Available Not Available Not Available ergocalcife rol (vitamin D2) 1,250 mcg (50,000 unit) capsule TAKE ONE (1) CAPSULE BY MOUTH EVERY WEEK 03/09 completed Not Available Not Available Not Available irbesartan 150 mg tablet TAKE 1/2 TABLET BY MOUTH TWICE DAILY active Not Available Not Available No t Available carbidopa 25 mg-levodopa 100 mg tablet [...] day by oral route for 3 days. 04/25 completed Not Available Not Available Not Available Vitals Date Recorded Body height Body mass index (BMI) Body weight Body temperature Heart rate Oxygen saturation Respiratory rate Pain severity - 0-10 verbal numeric rating [Score] - Reported Systolic And Diastolic Provider Name and Address Organization Details Last Updated DateTime 5 162.56 cm 24.2 kg/m2 10185.5 2 g 98.2 [degF] 108 /min 98 % 18 /min 0 144/88 mm[Hg] [...] You Have Serious Difficulty Hearing? No SLIGHTLY MESA GRANDE Information not available 02/21/2022 What Type Of [...] Or The Highest Degree You Have Received? [id number] Information not available 02/21/2022 Have There Been Any Changes To Your Family Or Social Situation? No Information not available 02/21/2022 What Is The Fluoride Status Of Your Home? Fluoridated Information not available 02/21/2022 Have You Recently Or Are You Planning To Travel To An Area With Zika Virus? No Information not available 02/21/2022 Do You Have A Medical Power Of Stretching Machine Tender Frame? No Information not available 02/21/2022 What Was [...] Functional Status Question Answer Note LastModified by [employer] ion Details LastModified Time Do you use [...] anxious, or unable to sleep at night)? [id number] Information not available 02/21/2022 Do you have [...] Response Allergies/Hayfever Y Hospitalizations Y Hyperlipidemia Y Hypertension Y Diverticulitis Y [...] zoster recombinant 4 completed Anna Guerre[place] null, [place] - [facility] 05/21/2024 10:40:04 Influenza, high-dose, quadrivalent, PF 3 completed Anna Guerre[place], [place] - [facility] 05/06/2023 10:50:38 Tdap 4 completed Anna Guerrero null, [place] - [facility] 08/13/2023 14:19:07 COVID-19, mRNA, LNP-S, PF, annika-sucrose, 30 mcg/0.3 mL 4 completed Anna Guerrero null, [place] - [facility] 08/13/2023 14:20:08 Influenza, high-dose, trivalent, PF 4 completed Anna Guerrero null, [place] - [facility] 05/22/2024 08:15:13 COVID-19, mRNA, LNP-S, PF, annika-sucrose, 30 mcg/0.3 mL 4 completed Anna Guerrero null, [facility] [place] 05/22/2024 08:16:35 Pneumococcal conjugate PCV20, polysaccharide [id number] conjugate, adjuvant, PF 5 completed Anna Guerrero null, [facility] [place] 03/09/2025 18:42:08 Influenza, high-dose, trivalent, PF 5 completed Anna Guerrero null, [facility] [place] 05/11/2025 17:45:01 COVID-19, mRNA, LNP-S, PF, annika-sucrose, 30 mcg/0.3 mL 5 [facility] 05/11/2025 17:45:55 Td (adult), 2 Lf tetanus toxoid, preservative free, adsorbed 6 completed Anna Guerrero null, [facility] 02/21/2022 08:33:05 pneumococcal polysaccharide PPV23 3 [facility] 02/21/2022 08:33:34 MMR 6 [facility] 02/21/2022 08:33:54 COVID-19, mRNA, LNP-S, PF, 100 mcg/0.5mL dose or 50 mcg/0.25mL dose 1 [facility] 07/24/2022 10:12:41 COVID-19, mRNA, LNP-S, PF, 100 mcg/0.5mL dose or 50 mcg/0.25mL dose 1 completed Anna Guerrero null, [facility] [place] 07/24/2022 10:12:41 Influenza, split virus, trivalent, PF 0 completed Anna Guerrero null, [facility] [place] 07/24/2022 10:12:41 COVID-19, mRNA, LNP-S, bivalent, PF, 50 mcg/0.5 mL or 25mcg/0.25 mL dose 2 completed Anna Guerrero null, [facility] [place] 07/24/2022 10:12:42 Influenza, high-dose, quadrivalent, PF 2 completed Anna Guerrero null, [place] - [facility] 07/24/2022 10:12:42 zoster recombinant 4 completed Anna Guerrero [place], [place] - [facility] 03/19/2024 10:16:44 Past Encounters Encounter ID Performer Location Encounter Start Date Encounter Closed Date Diagnosis/Indication Diagnosis SNOMED-CT Code Diagnosis ICD10 Code Diagnosis IMO Codes Diagnosis Note [id number] Espinoza Nava APRN [address] [address] 04/01/2025 16:11:33 04/01/2025 17:08:03 Hypertensive disorder 49518353 I10 increase irbesartan 75mg to bidcheck bp at home keep logif no improvemen t return Hematoma 585131286 T14.8 XXA 523372 if any symptoms worsen go to ed Irregular heart beat 361 920930 I49.9 [id number] [id number] Espinoza Nava APRN [address] [address] 04/13/2025 16:37:41 04/13/2025 17:30:29 Preoperative procedure 729372575 Z01.818 757536 moderate risk due to murmur and htn Diastolic murmur 8628380 1 I38 913332 murmur seems louder today, discussed with family/pt [...] (MEDICARE REPLACEMENT/A DVANTAGE - PPO) Emma Guerrero [id number] Emma Guerrero Notes Date Note Type Note Provider Name and Address Organization Details Recorded Time 04/13/2025 text/html 80 yr old female presents for preop eval. surgery planed 04/20 at [facility] to evaluate hematoma. Espinoza Nava APRN [address], [place], [address], [place] - [facility] 04/13/2025 17:30:11 OBGyn Episode No OBEpisode recorded.
--- OUTSIDE RECORDS SUMMARY | 2025-06-19 03:49 | XMS_ITS | Clinical Summary ---
Author Organization [facility] yste Address [address] [place] [address] Care Team Providers Care Incident Response Coordinator Name Role Phone Unavailable Primary Care Provider Unavailabl e Social History Tobacco Use Types Packs/Day Years Used Date Smoking Tobacco: Never Assessed Abuse Screen Answer Date Recorded Unsafe at Home or Work/School Not on file Feels Threatened by Someone? Not on file 03/2023 Does Anyone Keep You from Co ntacting Others or Doint Things Outside the Home? Not on file 04/22/2023 Physical Sign of Abuse Present Not on file 1 Housing Stability Answer Date Recorded Current Living Arrangements Not on file 03/2023 Potentially Unsafe Housing Conditions Not on davis e 04/22/2023 Family and Community Support Answer Joaquin e Recorded Help with Day-to-Day Activities Not on file 04/22/2023 Lonely or Isolated Not on file 04/22/2023 Employment Answer Date Recorded Do you want help finding or keeping work or a ellen b? Not on file 04/22/2023 Disabilities Answer Date Recorded Concentrating, Remembering, or Making Decisions Difficulty Not on file 04/22/2023 Doing Errands Independently Difficulty Not on fi le 04/22/2023 Education Answer Date Recorded Help with school or training? Not on file Preferred Language Not on file 04/22/2023 Comments Unknown Sex and Gender Information Value Date Recorded Sex Assigned at Not on file Legal Sex Female 10:59 AM EDT Gender Identity Not on file Sexual Orientation Not on file Plan of Treatment Health Maintenance Due Date Last Done Comments ANNUAL PHYSICAL 1945 DXA SCAN 1945 TDAP/TD VACCINES (1 - Tdap) 01/28/1963 Pneumococcal Vaccine 50+ (1 of 1 - PCV) 01/28/1994 ZOSTER VACCINE (1 of 2) 01/28/1994 RSV Vaccine - Adults (1 - 1-dose 75+ series) 9 INFLUENZA VACCINE 02/12/2025 COVID-19 Vaccine (2023- season) 2025
--- OUTSIDE RECORDS SUMMARY | 2025-06-19 03:49 | XMS_ITS | Data Portability ---
Author Organization [facility] Address [address] [place] [address] Care Team Providers Care Manager Erp Name Role Phone VANIA VALKELIUna Primary Care Provider Assessment Encounter Date Assessment [...] Check List reviewed and printed for patient. [email or web address] Not available 03/09/2025 16:08:27 Plan of Treatment Reminders Order Date Submit Date Provider Last Modified By Organization Details Last Modified Time Details Appointments None recorded. Lab venipunctur e 2024 025 [email or web address] [facility], [address], Kristian F, [place], [address], 09:06:21 CBC w/ auto diff 2024 025 SIMIN [facility], [address], [place], [address], 06:10:46 BMP, serum or plasma 2024 025 SIMIN [facility], [address], Krist[address], [place], [address], 06:10:47 Referral ENT surgery referral - spoke with maisha lou aprn- will see pt weds-need appointment 2024 025 [facility], [address], [place], [address], 5 08:30:01 ribber referral 2024 025 SIMIN Ham Mauro [facility], [address] [place] [address] Dr, [place] [address], [place], [address], 04:04:45 Procedures None recorded. Surgeries None recorded. Imaging electrocard iogram 2024 [facility], [address] [place] [address], [address], 17:55:07 US, echocardiog britta 2024 025 [facility] [address], [place], [place], [address], 23:38:53 CT, head, w/o contrast 2024 025 [facility], [address] [place] [address], [address], 11:46:34 CT, face, w/o contrast 2024 025 [facility], [address] [place] [address], [address], 11:46:24 electrocard iogram 2024 025 [facility], [address] [place] [address], [address], 17:21:21 Medication Orders irbesartan 75 mg tablet 2024 025 [facility], [address] [place] [address], [place], [address], 16:46:26 Patient TargetsNo targets recorded. 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 Referring Physician: [facility], Encounter Date: 03/09/2025 ENT Surgery Referral for Hem atoma spoke with maisha lou aprn- will see pt weds-need appointment Referring Physician: Jennifer Nava [facility], Encounter Date: 04/01/2025 Results Created Date Observation Date Name Description Value Unit Range Abnormal Flag Note LastModifiedBy Organization Detail LastModifiedTime 04/13/2004/14/2025 CBC WITH DIFFE RENTI AL/PL ATELE T WBC 5.1 x10e3 /uL 3.4-10 .8 normal Not Available [facility] ([facility]) [address] [place], [address], 04/14/2025 06:10:46 04/13/20 25 04/14/2025 CBC WITH DIFFE RENTI AL/PL ATELE T RBC 4.05 x10e6 /uL 3.77-5 .28 normal Not Available [facility] ([facility]) [address] [place], [address], 04/14/2025 06:10:46 04/13/20 25 04/14/2025 CBC WITH DIFFE RENTI AL/PL ATELE T hemoglobin 12.9 g/dL 11.1-1 5.9 normal Not Available [facility] ([facility]) [address] [place], [address], 04/14/2025 06:10:46 04/13/20 25 04/14/2025 CBC WITH DIFFE RENTI AL/PL ATELE T hematocrit 34.4 % 34.0-4 6.6 normal Not Available [facility] ([facility]) [address] [place], [address], 04/14/2025 06:10:46 04/13/2004/14/2025 CBC WITH DIFFE RENTI AL/PL ATELE T MCV 85 fL 79-97 normal Not Available [facility] ([facility]) [address] [place], [address], 04/14/2025 06:10:46 04/13/20 25 04/14/2025 CBC WITH DIFFE RENTI AL/PL ATELE T MCH 31.9 pg 26.6-3 3.0 normal Not Available [facility] ([facility]) [address] [place], [address], 04/14/2025 06:10:46 04/13/20 25 04/14/2025 CBC WITH DIFFE RENTI AL/PL ATELE T MCHC 37.5 g/dL 31.5-3 5.7 above high normal Not Available [facility] ([facility]) [address] [place], [address], 04/14/2025 06:10:46 04/13/20 25 04/14/2025 CBC WITH DIFFE RENTI AL/PL ATELE T RDW 13.0 % 11.7-1 5.4 Not Available [facility] ([facility]) [address] [place], [address], 04/14/2025 06:10:46 04/13/20 25 04/14/2025 CBC WITH DIFFE RENTI AL/PL ATELE T platelets 216 x10e3 /uL 150-45 0 normal Not Available [facility] ([facility]) [address] [facility], [place], [address], 04/14/2025 06:10:46 04/13/20 25 04/14/2025 CBC WITH DIFFE RENTI AL/PL ATELE T neutrophils 37 % not estab. normal Not Available [facility] ([facility]) [address] [facility], [place], [address], 04/14/2025 06:10:46 04/13/20 25 04/14/2025 CBC WITH DIFFE RENTI AL/PL ATELE T lymphs 52 % not estab. normal Not Available [facility] ([facility]) [address] [facility], [place], [address], 04/14/2025 06:10:46 04/13/20 25 04/14/2025 CBC WITH DIFFE RENTI AL/PL ATELE T monocytes 8 % not estab. normal Not Available [facility] ([facility]) [address] [place], [address], 04/14/2025 06:10:46 04/13/20 25 04/14/2025 CBC WITH DIFFE RENTI AL/PL ATELE T eos 2 % not estab. normal Not Available [facility] ([facility]) [address] [facility], [place], [address], 04/14/2025 06:10:46 04/13/20 25 04/14/2025 CBC WITH DIFFE RENTI AL/PL ATELE T basos 1 % not estab. 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 0 normal Not Available [facility] ([facility]) [address] [facility] [place], [address], 04/14/2025 06:10:46 04/13/20 25 04/14/2025 CBC WITH DIFFE RENTI AL/PL ATELE T lymphs (absolute) 2.7 x10e3 /uL 0.7-3. 1 normal Not Available [facility] ([facility]) [address] [facility] [place], [address], 04/14/2025 06:10:46 04/13/20 25 04/14/2025 CBC WITH DIFFE RENTI AL/PL ATELE T monocytes(ab solute) 0.4 x10e3 /uL 0.1-0. 9 normal Not Available [facility] ([facility]) [address] [place], [address], 04/14/2025 06:10:46 04/13/20 25 04/14/2025 CBC WITH DIFFE RENTI AL/PL ATELE T eos (absolute) 0.1 x10e3 /uL 0.0-0. 4 normal Not Available [facility] ([facility]) [address] [place], [address], 04/14/2025 06:10:46 04/13/20 25 04/14/2025 CBC WITH DIFFE RENTI AL/PL ATELE T baso (absolute) 0.0 x10e3 /uL 0.0-0. 2 normal Not Available [facility] ([facility]) [address] [facility], [place], [address], 04/14/2025 06:10:46 04/13/20 25 04/14/2025 CBC WITH DIFFE RENTI AL/PL ATELE T immature granulocytes 0 % not estab. Not Available [facility] ([facility]) [address] [facility], [place], [address], 04/14/2025 06:10:46 04/13/20 25 04/14/2025 CBC WITH DIFFE RENTI AL/PL ATELE T immature grans (abs) 0.0 x10e3 /uL 0.0-0. 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 Not Available [facility] ([facility]) [address] [facility], [place], [address], 04/14/2025 06:10:46 04/13/20 25 04/14/2025 BASIC METAB OLIC PANEL (8) glucose 97 mg/dL 70-99 normal Not Available [facility] ([facility]) [address] [facility], [place], [address], 04/14/2025 06:10:47 04/13/20 25 04/14/2025 BASIC METAB OLIC PANEL (8) BUN 6 mg/dL 8-27 below low normal Not Available [facility] ([facility]) [address] [facility], [place], [address], 04/14/2025 06:10:47 04/13/20 25 04/14/2025 BASIC METAB OLIC PANEL (8) creatinine 0.51 mg/dL 0.57-1 .00 below low normal Not Available [facility] ([facility]) [address] [facility] [place], [address], 04/14/2025 06:10:47 04/13/2004/14/2025 BASIC METAB OLIC PANEL (8) eGFR 94 mL/mi n/1.7 3 >59 normal Not Available [facility] ([facility]) [address] [facility] [place], [address], 04/14/2025 06:10:47 04/13/2004/14/2025 BASIC METAB OLIC PANEL (8) BUN/creatini ne ratio 12 12-28 normal Not Available [facility] ([facility]) [address] [facility] [place], [address], 04/14/2025 06:10:47 04/13/2004/14/2025 BASIC METAB OLIC PANEL (8) sodium 144 mmol/ L 134-14 4 normal Not Available [facility] ([facility]) [address] [facility] [place], [address], 04/14/2025 06:10:47 04/13/2004/14/2025 BASIC METAB OLIC PANEL (8) potassium 3.1 mmol/ L 3.5-5. 2 below low normal Not Available [facility] ([facility]) [address] [facility] [place], [address], 04/14/2025 06:10:47 04/13/2004/14/2025 BASIC METAB OLIC PANEL (8) chloride 102 mmol/ L 96-106 normal Not Available [facility] ([facility]) [address] [facility] [place], [address], 04/14/2025 06:10:47 04/13/20 25 04/14/2025 BASIC METAB OLIC PANEL (8) carbon dioxide, total 24 mmol/ L 20-29 normal Not Available [facility] ([facility]) [address] [facility] [place], [address], 04/14/2025 06:10:47 04/13/2004/14/2025 BASIC METAB OLIC PANEL (8) calcium 9.6 mg/dL 8.7-10 .3 normal Not Available [facility] ([facility]) [address] [place], [address], 04/14/2025 06:10:47 04/19/20 25 04/20/2025 BASIC METAB OLIC PANEL (8) glucose 103 mg/dL 70-99 above high normal Not Available [facility] ([facility]) [address] [place], [address], 04/20/2025 08:11:29 04/19/2004/20/2025 BASIC METAB OLIC PANEL (8) BUN 8 mg/dL 8-27 normal Not Available [facility] ([facility]) [address] [place], [address], 04/20/2025 08:11:29 04/19/2004/20/2025 BASIC METAB OLIC PANEL (8) creatinine 0.56 mg/dL 0.57-1 .00 below low normal Not Available [facility] ([facility]) [address] [place], [address], 04/20/2025 08:11:29 04/19/20 25 04/20/2025 BASIC METAB OLIC PANEL (8) eGFR 92 mL/mi n/1.7 3 >59 normal Not Available [facility] ([facility]) [address] [place], [address], 04/20/2025 08:11:29 04/19/20 25 04/20/2025 BASIC METAB OLIC PANEL (8) BUN/creatini ne ratio 14 12-28 normal Not Available [facility] ([facility]) [address] [place], [address], 04/20/2025 08:11:29 04/19/20 25 04/20/2025 BASIC METAB OLIC PANEL (8) sodium 143 mmol/ L 134-14 4 normal Not Available [facility] ([facility]) [address] [facility] [place], [address], 04/20/2025 08:11:29 04/19/20 25 04/20/2025 BASIC METAB OLIC PANEL (8) potassium 3.8 mmol/ L 3.5-5. 2 normal Not Available [facility] ([facility]) [address] [facility] [place], [address], 04/20/2025 08:11:29 04/19/20 25 04/20/2025 BASIC METAB OLIC PANEL (8) chloride 108 mmol/ L 96-106 above high normal Not Available [facility] ([facility]) [address] [facility] [place], [address], 04/20/2025 08:11:29 04/19/2004/20/2025 BASIC METAB OLIC PANEL (8) carbon dioxide, total 20 mmol/ L 20-29 normal Not Available [facility] ([facility]) [address] [facility] [place], [address], 04/20/2025 08:11:29 04/19/2004/20/2025 BASIC METAB OLIC PANEL (8) calcium 9.1 mg/dL 8.7-10 .3 normal Not Available [facility] ([facility]) [address] [facility] [place], [address], 04/20/2025 08:11:29 04/01/20 25 04/01/2025 elect rocar diogr am No observ ation record ed. efryman [address], [address], 04/02/2025 08:38:57 04/02/20 25 04/01/2025 elect rocar diogr am No observ ation record ed. [email or web address] [address], [address], 04/06/2025 14:35:42 04/07/20 CT, face, w/o contr ast No observ ation record ed. [facility] [address] [place], [address], 04/09/2025 13:21:48 04/07/20 CT, head, w/o contr ast No observ ation record ed. [facility] [address] [place], [address], 04/09/2025 13:21:48 04/13/2004/15/2025 elect rocar diogr am No observ ation record ed. [address], [address], 04/15/2025 08:55:45 04/13/2004/13/2025 elect rocar diogr am No observ ation record ed. [email or web address] [address], [address], 04/21/2025 11:44:14 04/16/2004/15/2025 XR, chest , 2 view No observ ation record ed. [place] [address], [place], [address], 04/16/2025 08:27:01 04/17/2004/15/2025 , [facility] ardio gram No observ ation record ed. [place] [address], [place], [address], 04/19/2025 10:41:46 Result Notes None recorded. Problems Name Problem SNOMED Code Status Onset Date Resolution Date Notes Provider Name and Address Organization Details Recorded Time Hypertensive disorder 77594117 Active MICHAEL Abdalla - [facility] 11:26:49 Hyperlipidemi a 93854606 Active Anna Yolanda villasenor [place] - [facility] 2 11:27:40 Vitamin D deficiency 90807450 Active 2021 Jennifer Nava APRN [address], [place], [address] , [place] - [facility] 2 14:21:11 Restless legs syndrome 10275905 Active 2021 Jennifer Nava APRN [address], [place], [address] , [place] - [facility] 2 14:27:46 Prediabetes 407240896 Active 2022 Jennifer Nava APRN [address], [place], [address] , [place] - [facility] 3 10:39:52 Problem Notes None recorded. Procedures Surgical History Date Name Laterality Status Provider Name and Address Organization Details Recorded Time 03/09/20 25 Advance Care Planning completed Anna Guerrero [place] - [facility] 03/09/2025 16:08:28 03/09/20 25 Functional Status Assessed completed Anna Guerrero [place] - [facility] 03/09/2025 16:08:28 08/28/19 25 [...] completed Becky RODRIGUEZ - [facility] 02/22/2022 13:55:32 incision and drainage of hematoma completed Anna RODRIGUEZ - [facility] 05/11/2025 16:47:20 Imaging Results None recorded. Procedure Notes None recorded. Medical Equipment None Reported. Allergies Allergen ID Allergen Name Allergen Category Reaction Reaction Severity Criticality Documentation Date Start Date Code Code System Note Provider Name and Address Organization Details Recorded Time 765120 Product containin g penicilli n (product) medicatio n Not available Not available Not available 02/22/2022 47001 8001 SNOMED Anna villasenor, [place] - [facility] 13:51:41 503093 Substance with sulfonami de structure and antibacte rial mechanism of action (substanc e) medicatio n fever moderate high 02/22/2022 71684 8003 SNOMED Anna villasenor, [place] - [facility] 2 10:26:26 427928 codeine medicatio n fever moderate high 02/22/2022 [...] (BMI) Body weight Heart rate Oxygen saturation Respiratory rate Pain severity - 0-10 verbal numeric rating [Score] - Reported Body temperature Systolic And Diastolic Provider Name and Address Organization Details Last Updated DateTime 5 162.56 cm 24.2 kg/m2 34772.5 2 g 79 /min 97 % 18 /min 0 98.1 [degF] 132/80 mm[Hg] Anna Guerrero [place] - [facility] 5 16:36:15 Date Recorded Body height Body mass index (BMI) Body weight Heart rate Oxygen saturation Respiratory rate Pain severity - 0-10 verbal numeric rating [Score] - Reported Systolic And Diastolic Provider Name and Address Organization Details Last Updated DateTime 5 162.56 cm 24.2 kg/m2 87282.5 2 g 76 /min 98 % 18 /min 3 200/98 mm[Hg] Anna Guerrero [place] - [facility] 5 16:38:35 Date Recorded Body height Body mass index (BMI) Body weight Body temperature Heart rate Oxygen saturation Respiratory rate Pain severity - 0-10 verbal numeric rating [Score] - Reported Systolic And Diastolic Provider Name and Address Organization Details Last Updated DateTime 5 162.56 cm 24.2 kg/m2 49887.5 2 g 98.2 [degF] 108 /min 98 % 18 /min 0 144/88 mm[Hg] Anna Guerrero [place] - [facility] 5 16:47:47 Date Recorded Body height Provider Name an d Address Organization Details Last Updated DateTime 04/19/2025 162.56 cm Anna Guerrero Simple [facility] 1 13:05:12 Date Recorded Body height Body mass index (BMI) Body weight Heart rate Oxygen saturation Respiratory rate Pain severity - 0-10 verbal numeric rating [Score] - Reported Body temperature Systolic And Diastolic Provider Name and Address Organization Details Last Updated DateTime 5 162.56 cm 24.2 kg/m2 43718.5 2 g 86 /min 98 % 18 /min 0 97.8 [degF] 138/82 mm[Hg] Anna Guerrero [place] - [facility] 5 16:52:49 Social History Question Answer Notes LastModified by [...] You Have Serious Difficulty Hearing? No SLIGHTLY MINTO Information not available 02/21/2022 What Type Of [...] Or The Highest Degree You Have Received? [id number] Information not available 02/21/2022 Have There Been Any Changes To Your Family Or Social Situation? No Information not available 02/21/2022 What Is The Fluoride Status Of Your Home? Fluoridated Information not available 02/21/2022 Have You Recently Or Are You Planning To Travel To An Area With Zika Virus? No Information not available 02/21/2022 Do You Have A Medical Power Of Photonics Engineer? No Information not available 02/21/2022 What Was [...] anxious, or unable to sleep at night)? [id number] Information not available 02/21/2022 Do you have [...] zoster recombinant 4 completed Anna Guerrero null, [place] - [facility] 05/21/2024 10:40:04 Influenza, high-dose, quadrivalent, PF 3 completed Anna Guerre[place] - [facility] 05/06/2023 10:50:38 Tdap 4 completed Anna Guerre[place] [facility] 08/13/2023 14:19:07 COVID-19, mRNA, LNP-S, PF, annika-sucrose, 30 mcg/0.3 mL 4 completed Anna Guerrero [place] - [facility] 08/13/2023 14:20:08 Influenza, high-dose, trivalent, PF 4 completed Anna Guerre[place] [facility] 05/22/2024 08:15:13 COVID-19, mRNA, LNP-S, PF, annika-sucrose, 30 mcg/0.3 mL 4 completed Anna Guerrero [place] - [facility] 05/22/2024 08:16:35 Pneumococcal conjugate PCV20, polysaccharide [id number] conjugate, adjuvant, PF 5 completed Anna Guerrero null, [facility] 03/09/2025 18:42:08 Influenza, high-dose, trivalent, PF 5 completed Anna Guerrero null, [facility] 05/11/2025 17:45:01 COVID-19, mRNA, LNP-S, PF, annika-sucrose, 30 mcg/0.3 mL 5 completed Anna Guerrero null, [facility] 05/11/2025 17:45:55 Td (adult), 2 Lf tetanus toxoid, preservative free, adsorbed 6 completed Anna Guerrero null, [facility] 02/21/2022 08:33:05 pneumococcal polysaccharide PPV23 3 completed Anna Guerrero null, [facility] 02/21/2022 08:33:34 MMR 6 completed Anna Guerrero null, [facility] 02/21/2022 08:33:54 COVID-19, mRNA, LNP-S, PF, 100 mcg/0.5mL dose or 50 mcg/0.25mL dose 1 completed Anna Guerrero null, [facility] 07/24/2022 10:12:41 COVID-19, mRNA, LNP-S, PF, 100 mcg/0.5mL dose or 50 mcg/0.25mL dose 1 completed Anna Guerrero null, [facility] 07/24/2022 10:12:41 Influenza, split virus, trivalent, PF 0 completed Anna Guerrero null, [facility] 07/24/2022 10:12:41 COVID-19, mRNA, LNP-S, bivalent, PF, 50 mcg/0.5 mL or 25mcg/0.25 mL dose 2 completed Anna Guerrero null, [facility] 07/24/2022 10:12:42 Influenza, high-dose, quadrivalent, PF 2 completed Anna Guerrero null, [facility] 07/24/2022 10:12:42 zoster recombinant 4 completed Anna Guerrero MICHAEL villasenor - [facility] 03/19/2024 10:16:44 Past Encounters Encounter ID Performer Location Encounter Start Date Encounter Closed Date Diagnosis/Indication Diagnosis SNOMED-CT Code Diagnosis ICD10 Code Diagnosis IMO Codes Diagnosis Note [id number] Jennifer Nava [address] [address] 02/22/2022 13:25:35 02/22/2022 14:52:44 Hypertensive disorder 80231192 I10 Hyperlipidemia 02527964 E78.5 Vitamin D deficiency 347 38804 E55.9 Heart murmur 81012974 R0 1.1 obtain records from [facility] for echo- pt states she had one but unsure of when [id number] Jennifer Nava [address] [address] 03/27/2022 14:37:33 03/27/2022 15:58:10 Thyroid stimulating hormone level below reference range 213163291 R94.6 Impaired f asting glycemia 328248344 R73.01 [id number] Jennifer Nava [address] [address] 04/24/2022 10:14:16 04/24/2022 11:06:53 Influenza vaccine needed 8151637341 106 Z23 Hypertensive disorder 38 233834 I10 Hyperlipidemia 95750610 E78.5 Restless l egs syndrome 30253386 G25.81 carbidopa2 5mg/levodo pa 100mg- 1/2 tab for 1 week the a 1/4 tab for one week and call when taper finished and will send new med Heart murmur 58013935 R0 1.1 [id number] Jennifer Nava [address] [address] 07/24/2022 10:01:35 07/24/2022 11:04:34 Hypertensive disorder 93924394 I10 Restless l egs syndrome 73647138 G25.81 Hyperlipidemia 71714830 E78.5 Vitamin D deficiency 347 48914 E55.9 Prediabetes 336802155 R7 3.03 [id number] Eugonda Fryman[address] [address] 10/26/2022 09:42:34 10/26/2022 10:25:37 Prediabetes 450631286 R73.03 Hypertensive disorder 38 371215 I10 Restless l egs syndrome 00453495 G25.81 Hyperlipidemia 39933451 E78.5 Allergic rhinitis 610253 04 J30.9 [id number] Jennifer Luzmimijose manuel[address] [address] 01/18/2023 10:35:05 01/18/2023 11:33:17 Prediabetes 772788465 R73.03 Restless l egs syndrome 61588653 G25.81 Hypertensive disorder 38 642374 I10 Hyperlipidemia 29590015 E78.5 [id number] Jennifer Nava[address] [address] 05/06/2023 09:49:19 05/06/2023 10:44:47 Prediabetes 338582528 R73.03 labs next visit Hypertensive disorder 38 793884 I10 Vitamin D deficiency 347 47114 E55.9 Restless l egs syndrome 54857043 G25.81 Influenza vaccine needed 1830113045 106 Z23 [id number] Jennifer Nava[address] [address] 08/13/2023 10:21:32 08/13/2023 11:45:13 Hypertensive disorder 00340799 I10 Prediabetes 585045241 R7 3.03 Restless l egs syndrome 54398696 G25.81 Vitamin D deficiency 347 13175 E55.9 Hyperlipidemia 49957162 E78.5 Gastroesop hageal reflux disease without esophagitis 927119233 K21.9 Body mass index 25-29 - overweight 843605951 Z68.26 Overweight 514303301 E66 .3 Adult heal th examination 092472084 Z00.00 Exercises education, guidance, and counseling 522995937 Z71.82 At [facility] ed risk for falls 733913344 Z91.81 score 5 Active or passive immunization 143268568 Z23 [id number] Jennifer Luzgil[address] [address] 11/22/2023 09:59:03 11/22/2023 10:50:57 Adult health examination 159228140 Z00.00 Depression screening 171 639053 Z13.31 A depression screening was completed via a standardiz ed screening tool. 5 minutes were spent discussing depression screening results and risk factors. Examinatio n of blood pressure 073931409 Z01.30 Diet education 69430151 Z71.3 Counseling 169706139 Z71 .82 Exercise counseling . Patient encouraged to exercise 30 minutes 5 days a week. At [facility] ed risk for falls 156539141 Z91.81 STEADI FAST screening score of . Advance care planning 71 7597281 Z71.89 Hypertensive disorder 38 713794 I10 Gastroesop hageal reflux disease without esophagitis 519835909 K21.9 Restless l egs syndrome 51943418 G25.81 Hyperlipidemia 30623195 E78.5 Body mass index 25-29 - overweight 711311776 Z68.26 Overweight 650406540 E66 .3 Osteoporos is screening declined 5318288780 80408 Z53.20 [id number] [facility] [address] [address] 03/19/2024 09:56:32 03/19/2024 10:54:58 Closed fracture of neck of left femur 9711560119 1237901 S72.022D continue ptfollow up with ortho [id number] [facility] [address] [address] 05/21/2024 10:13:59 05/21/2024 11:36:29 Influenza vaccine needed 4888765290 106 Z23 Administra tion of SARS-CoV-2 vaccine 9501094608 Z23 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 see cognitive testing sheets [id number] [facility] [address] [address] 07/02/2024 09:04:21 07/02/2024 11:12:58 Prediabetes 870993545 R73.03 Restless l egs syndrome 49853100 G25.81 Vitamin D deficiency 347 47455 E55.9 Hypertensive disorder 38 896495 I10 Gastroesop hageal reflux disease without esophagitis 853100627 K21.9 Hyperlipidemia 75593683 E78.5 [id number] Jennifer Luzmimijose manuel[address] [address] 08/28/2024 08:37:59 08/28/2024 09:27:44 Body mass index 20-24 - normal 635699472 Z68.23 Acute hypokalemia 059467 03 E87.6 [facility] [id number] [facility] N[facility] [address] 01/05/2025 16:18:23 01/05/2025 17:18:37 Prediabetes 192944512 R73.03 labs Restless l egs syndrome 54314707 G25.81 labs Vitamin D deficiency 347 87508 E55.9 labs Hypertensive disorder 38 397807 I10 labs Hyperlipidemia 96872219 E78.5 labs [id number] [facility] Vania[address] [address] 01/12/2025 13:27:57 01/12/2025 16:22:44 Hypokalemia 89152718 E87.6 9791 [id number] [facility] [address] 03/09/2025 16:16:49 03/09/2025 17:40:13 Adult health examination 922632387 Z00.00 Depression screening 171 862313 Z13.31 A depression screening was completed via a standardiz ed screening tool. 5 minutes were spent discussing depression screening results and risk factors. Examinatio n of blood pressure 640568330 Z01.30 Diet education 23347703 Z71.3 Counseling 433253665 Z71 .82 Exercise counseling . Patient encouraged to exercise 30 minutes 5 days a week. At [facility] ed risk for falls 670800695 Z91.81 STEADI FAST screening score of __10___. Advance care planning 71 6712813 Z71.89 Immunization due 2707689 08 Z23 9353070 Hearing loss 91994817 H9 1.90 740521 Normal weight 68488648 Z 68.24 7890904240 Body mass index 20-24 - normal 661899715 Z68.24 08364156 [id number] Jennifer Nava [address] [address] 04/01/2025 16:11:33 04/01/2025 17:08:03 Hypertensive disorder 87248469 I10 increase irbesartan 75mg to bidcheck bp at home keep logif no improvemen t return Hematoma 809396700 T14.8 XXA 894403 if any symptoms worsen go to ed Irregular heart beat 361 931895 I49.9 412622 [id number] Jennifer Nava[address] [address] 04/13/2025 16:37:41 04/13/2025 17:30:29 Preoperative procedure 586444958 Z01.818 958793 moderate risk due to murmur and htn Diastolic murmur 1350349 1 I38 653516 murmur seems louder today, discussed with family/pt will order echo and then cardiologi st referral after results. [id number] Jennifer Nava [address] [address] 04/19/2025 12:59:45 04/19/2025 13:38:47 Hypokalemia 46465570 E87.6 9791 [id number] [facility] [address] [address] 05/11/2025 16:37:59 05/11/2025 17:24:42 Influenza vaccine needed 7426973248 106 Z23 Vaccination given 269324 003 Z23 2141169427 Health Concerns Section Related Observation LastModified by Organization Detai ls LastModified Time None Recorded Concern Status LastModified by Organization Details LastModified Time None Recorded Advance Directives Directive N: Payers Insurance Date Sequence Insurance Name Policy Number Policy Thornton Covered Member ID Thornton Member ID Guarantor Name 05/22/2025 1 [employer] (MEDICARE REPLACEMENT/A DVANTAGE - PPO) Emma Guerrero [id number] Emma Guerrero Notes Date Note Type Note [...] She would like to have hearing aids. Valcynthia Nava APRN [address], [place], [address], [place] [facility] 03/09/2025 17:28:23 5 text/html ROS [...] today. Jennifer Nava APRN [address], [place], [address], [place] [facility] 04/01/2025 17:06:29 5 text/html 80 yr old female presents for preop eval. surgery planed 04/20 at [facility] to evaluate hematoma. Jennifer Nava APRN [address], [place], [address], [place] [facility] 04/13/2025 17:30:11 5 text/html 80 yr old female presents for lab work to recheck k+. Anna Guerrero [facility], [place] - [facility] 04/19/2025 13:07:47 5 text/html 80 yr old female presents for a flu and covid vaccine. Jennifer Nava APRN [address], [place], [address], [place] [facility] 05/11/2025 18:33:45 OBGyn Episode No OBEpisode recorded.
--- OUTSIDE RECORDS SUMMARY | 2025-06-19 03:50 | XMS_ITS | Continuity of Care Document ---
Author Organization [facility] Address [address] [place] [address] Care Team Providers Care Reception Specialist Name Role Phone ESPINOZA NAVA Primary Care Provider [phone] Assessment No assessment recorded. Plan of Treatment Reminders Order Date Submit Date Provider Last Modified By Organization Details Last Modified Time Details Appointments None recorded. Lab None recorded. Referral ENT surgery referral - spoke with maisha lou aprn- will see pt weds-need appointment 2024 025 [facility], [address], [place], [address], 08:30:01 Procedures None recorded. Surgeries None recorded. Imaging CT, head, w/o contrast 2024 025 [facility], [address] [place] [address], [address], 11:46:34 CT, face, w/o contrast 2024 025 [facility], [address] [place] [address], [address], 11:46:24 electrocard iogram 2024 025 [facility] [place] [facility], [address] [place] [address], [address], 5 17:21:21 Medication Orders irbesartan 75 mg tablet 2024 025 [facility], [address] [facility] [address], [place], [address], 16:46:26 Patient TargetsNo targets recorded. Patient InstructionsNo instructions recorded. Reason for Referral ENT Surgery Referral for Hem atoma spoke with maisha lou aprn- will see pt weds-need appointment Referring Physician: Espinoza Nava, Family Medicine, Encounter Date: 04/01/2025 Results Created Date Observation Date Name Description Value Unit Range Abnormal Flag Note LastModifiedBy Organization Detail LastModifiedTime 04/01/2004/01/2025 elect rocar diogr am No observ ation record ed. [address], [address], 04/02/2025 08:38:57 04/02/2004/01/2025 elect rocar diogr am No observ ation record ed. [email or web address] [address], [address], 04/06/2025 14:35:42 04/07/[address], face, w/o contr ast No observ ation record ed. [facility] [address] [place], [address], 04/09/2025 13:21:48 04/07/[address], head, w/o contr ast No observ ation record ed. [facility] [address] [place], [address], 04/09/2025 13:21:48 04/13/20 25 04/15/2025 elect rocar diogr am No observ ation record ed. [address], [address], 04/15/2025 08:55:45 04/13/2004/13/2025 elect bobby frey am No observ ation record ed. [email or web address] [address], [place], [address], 04/21/2025 11:44:14 04/16/20 25 04/15/2025 XR, chest , 2 view No observ ation record ed. [facility] [address], [place], [address], 04/16/2025 08:27:01 04/17/2004/15/2025 [place], echoc ardio gram No observ ation record ed. [facility] [address], [place], [address], 04/19/2025 10:41:46 Result Notes None recorded. Problems Name Problem SNOMED Code Status Onset Date Resolution Date Notes Provider Name and Address Organization Details Recorded Time Hypertensive disorder 13233080 Active Anna villasenor [place] - [facility] 11:26:49 Hyperlipidemi a 41291289 Active Anna villasenor [place] - [facility] 2 11:27:40 Vitamin D deficiency 44477695 Active 2021 Espinoza Nava, [employer] [address], [place], [address] , [place] - [facility] 2 14:21:11 Restless legs syndrome 11968208 Active 2021 Espinoza Nava [employer] [address], [place], [address] , [place] - [facility] 2 14:27:46 Prediabetes 658257064 Active 2022 Espinoza Nava APRN [address], [place], [address] , [place] - [facility] 3 10:39:52 Problem Notes None recorded. Procedures Surgical History Date Name Laterality Status Provider Name and Address Organization Details Recorded Time 03/09/20 Advance Care Planning completed Anna Guerrero [place] - [facility] 03/09/2025 16:08:28 03/09/20 25 Functional Status Assessed completed Anna Guerrero [place] - [facility] 03/09/2025 16:08:28 08/28/19 25 Medication Reconcilliation completed Anna Guerrero [place] - [facility] 08/28/2024 08:40:02 03/19/20 24 Medication Reconcilliation completed Anna Guerrero [place] - [facility] 03/19/2024 10:14:46 02/19/20 24 partial left hip replacement by prosthesis completed Anna Guerrero [place] - [facility] 03/19/2024 10:19:16 11/22/19 24 Advance Care Planning completed Anna Guerrero [place] - [facility] 11/22/2023 10:19:40 11/22/19 24 Functional Status Assessed completed Anna Guerrero [place] - [facility] 11/22/2023 10:19:40 10/14/19 21 Hip Replacement completed Anna Guerrero [place] - [facility] 02/16/2022 11:28:41 07/15/19 18 Date of Last Colonoscopy completed Anna Guerrero [place] - [facility] 02/22/2022 13:53:07 07/15/19 15 Back Surgery completed Anna Guerrero [place] - [facility] 02/21/2022 08:39:52 Carpal tunnel surgery completed Anna Guerrero [place] - [facility] 02/22/2022 13:55:02 cholecystectomy completed Anna Guerrero [place] - [facility] 02/22/2022 13:55:11 appendectomy completed Anna Guerrero [place] - [facility] 02/22/2022 13:55:22 Thyroid Lobectomy completed Becky Guerrero [place] - [facility] 02/22/2022 13:55:32 incision and drainage of hematoma completed Anna Guerrreo [place] - [facility] 05/11/2025 16:47:20 Imaging Results None recorded. Procedure Notes None recorded. Medical Equipment None Reported. Allergies Allergen ID Allergen Name Allergen Category Reaction Reaction Severity Criticality Documentation Date Start Date Code Code System Note Provider Name and Address Organization Details Recorded Time 479619 Product containin g penicilli n (product) medicatio n Not available Not available Not available 02/22/2022 11617 8001 SNOMED Anna villasenor [place] - [facility] 13:51:41 399033 Substance with sulfonami de structure and antibacte rial mechanism of action (substanc e) medicatio n fever moderate high 02/22/2022 95734 8003 SNOMED Anna Guerrero null, [place] - [facility] 2 10:26:26 653518 codeine medicatio n fever moderate high 02/22/2022 2670 RxNorm Anna Guerrero null, [place] - [facility] 2 10:25:59 Medications Name Sig [...] Updated DateTime 5 162.56 cm 24.2 kg/m2 73631.5 2 g 76 /min 98 % 18 /min 3 200/98 mm[Hg] Anna Guerrero [place] - [facility] 5 16:38:35 Social History Question Answer Notes LastModified by Organizat ion Details LastModified Time Tobacco Smoking Status Never Smoker Anna [place]as[place], [place] - [facility] 02/21/2022 08:36:24 Do You [...] You Have Serious Difficulty Hearing? No SLIGHTLY EYAK Information not available 02/21/2022 What Type Of [...] Or The Highest Degree You Have Received? [id number] Information not available 02/21/2022 Have There Been Any Changes To Your Family Or Social Situation? No Information not available 02/21/2022 What Is The Fluoride Status Of Your Home? Fluoridated Information not available 02/21/2022 Have You Recently Or Are You Planning To Travel To An Area With Zika Virus? No Information not available 02/21/2022 Do You Have A Medical Power Of Resident Manager? No Information not available 02/21/2022 What Was [...] anxious, or unable to sleep at night)? [id number] Information not available 02/21/2022 Do you have [...] zoster recombinant 4 completed [facility] [place] [place] [facility] 05/21/2024 10:40:04 Influenza, high-dose, quadrivalent, PF 3 completed [facility] [place] [facility] 05/06/2023 10:50:38 Tdap 4 completed [place] [facility] 08/13/2023 14:19:07 COVID-19, mRNA, LNP-S, PF, annika-sucrose, 30 mcg/0.3 mL 4 completed [place] [facility] 08/13/2023 14:20:08 Influenza, high-dose, trivalent, PF 4 completed [facility] [place] [facility] 05/22/2024 08:15:13 COVID-19, mRNA, LNP-S, PF, annika-sucrose, 30 mcg/0.3 mL 4 completed [place] [facility] 05/22/2024 08:16:35 Pneumococcal conjugate PCV20, polysaccharide [id number] conjugate, adjuvant, PF 5 completed [place] [facility] 03/09/2025 18:42:08 Influenza, high-dose, trivalent, PF 5 completed [place] [facility] 05/11/2025 17:45:01 COVID-19, mRNA, LNP-S, PF, annika-sucrose, 30 mcg/0.3 mL 5 completed [place] [facility] 05/11/2025 17:45:55 Td (adult), 2 Lf tetanus toxoid, preservative free, adsorbed 6 completed [place] [facility] 02/21/2022 08:33:05 pneumococcal polysaccharide PPV23 3 completed [place] [facility] 02/21/2022 08:33:34 MMR 6 completed [place] [facility] 02/21/2022 08:33:54 COVID-19, mRNA, LNP-S, PF, 100 mcg/0.5mL dose or 50 mcg/0.25mL dose 1 completed [place] [facility] 07/24/2022 10:12:41 COVID-19, mRNA, LNP-S, PF, 100 mcg/0.5mL dose or 50 mcg/0.25mL dose 1 completed [place] [facility] 07/24/2022 10:12:41 Influenza, split virus, trivalent, PF 0 completed [place] [facility] 07/24/2022 10:12:41 COVID-19, mRNA, LNP-S, bivalent, PF, 50 mcg/0.5 mL or 25mcg/0.25 mL dose 2 completed [place] [facility] 07/24/2022 10:12:42 Influenza, high-dose, quadrivalent, PF 2 completed [place] [facility] 07/24/2022 10:12:42 zoster recombinant 4 completed [place] [facility] 03/19/2024 10:16:44 Past Encounters Encounter ID Performer Location Encounter Start Date Encounter Closed Date Diagnosis/Indication Diagnosis SNOMED-CT Code Diagnosis ICD10 Code Diagnosis IMO Codes Diagnosis Note [id number] Espinoza Nava APRN [address] [address] 03/09/2025 16:16:49 03/09/2025 17:40:13 Adult health examination 879406023 Z00.00 Depression screening 171 843058 Z13.31 A depression screening was completed via a standardiz ed screening tool. 5 minutes were spent discussing depression screening results and risk factors. Examinatio n of blood pressure 746739681 Z01.30 Diet education 16258497 Z71.3 Counseling 150681124 Z71 .82 Exercise counseling . Patient encouraged to exercise 30 minutes 5 days a week. At [facility] ed risk for falls 165458681 Z91.81 STEADI FAST screening score of __10___. Advance care planning 71 1957195 Z71.89 Immunization due 7406812 08 Z23 3732825 Hearing loss 71107433 H9 1.90 784759 Normal weight 14538518 Z 68.24 8304918173 Body mass index 20-24 - normal 010631139 Z68.24 54349815 [id number] Espinoza Nava APRN [address] [address] 04/01/2025 16:11:33 04/01/2025 17:08:03 Hypertensive disorder 89618084 I10 increase irbesartan 75mg to bidcheck bp at home keep logif no improvemen t return Hematoma 950203969 T14.8 XXA 665503 if any symptoms worsen go to ed Irregular heart beat 361 635163 I49.9 016882 Health Concerns Section Related Observation LastModified by Organization Detai ls LastModified Time None Recorded Concern Status LastModified by Organization Details LastModified Time None Recorded Payers Encounter Date Sequence Insurance Name Policy Number Policy Thornton Covered Member ID Thornton Member ID Guarantor Name 04/01/2025 1 [employer] (MEDICARE REPLACEMENT/A DVANTAGE - PPO) Emma Guerrero [id number] Emma Guerrero Notes Date Note Type Note [...] high bp in the office today. Espinoza Nava APRN [facility] [address], [place], [address], [place] [facility] 04/01/2025 17:06:29 OBGyn Episode No OBEpisode recorded.
--- OUTSIDE RECORDS SUMMARY | 2025-06-19 03:50 | XMS_ITS | Continuity of Care Document ---
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 Plan of Treatment Reminders Order Date Submit Date Provider Last Modified By Organization Details Last Modified Time Details Appointments None record ed. Lab None record ed. Referral None record ed. Procedures None record ed. Surgeries None record ed. Imaging None record ed. Medication Orders None record ed. Patient TargetsNo targets recorded. Patient InstructionsNo instructions recorded. Reason for Referral None Reported. Results Created Date Observation Date Name Description Value Unit Range Abnormal Flag Note LastModifiedBy Organization Detail LastModifiedTime 04/13/2004/14/2025 CBC WITH DIFFE RENTI AL/PL ATELE T WBC 5.1 x10e3 /uL 3.4-10 .8 normal Not Available [facility] ([facility]) [address] [place], [address], 04/14/2025 06:10:46 04/13/20 25 04/14/2025 CBC WITH DIFFE RENTI AL/PL ATELE T RBC 4.05 x10e6 /uL 3.77-5 .28 normal Not Available [facility] ([facility]) [address] [place], [address], 04/14/2025 06:10:46 04/13/20 25 04/14/2025 CBC WITH DIFFE RENTI AL/PL ATELE T hemoglobin 12.9 g/dL 11.1-1 5.9 normal Not Available [facility] ([facility]) [address] [facility], [place], [address], 04/14/2025 06:10:46 04/13/2004/14/2025 CBC WITH DIFFE RENTI AL/PL ATELE T hematocrit 34.4 % 34.0-4 6.6 normal Not Available [facility] ([facility]) [address] [facility], [place], [address], 04/14/2025 06:10:46 04/13/2004/14/2025 CBC WITH DIFFE RENTI AL/PL ATELE T MCV 85 fL 79-97 normal Not Available [facility] ([facility]) [address] [facility], [place], [address], 04/14/2025 06:10:46 04/13/20 25 04/14/2025 CBC WITH DIFFE RENTI AL/PL ATELE T MCH 31.9 pg 26.6-3 3.0 normal Not Available [facility] ([facility]) [address] [facility], [place], [address], 04/14/2025 06:10:46 04/13/2004/14/2025 CBC WITH DIFFE RENTI AL/PL ATELE T MCHC 37.5 g/dL 31.5-3 5.7 above high normal Not Available [facility] ([facility]) [address] [place], [address], 04/14/2025 06:10:46 04/13/20 25 04/14/2025 CBC WITH DIFFE RENTI AL/PL ATELE T RDW 13.0 % 11.7-1 5.4 Not Available [facility] ([facility]) [address] [place], [address], 04/14/2025 06:10:46 04/13/20 25 04/14/2025 CBC WITH DIFFE RENTI AL/PL ATELE T platelets 216 x10e3 /uL 150-45 0 normal Not Available [facility] ([facility]) [address] [facility], [place], [address], 04/14/2025 06:10:46 04/13/20 25 04/14/2025 CBC WITH DIFFE RENTI AL/PL ATELE T neutrophils 37 % not estab. normal Not Available [facility] ([facility]) [address] [facility], [place], [address], 04/14/2025 06:10:46 04/13/20 25 04/14/2025 CBC WITH DIFFE RENTI AL/PL ATELE T lymphs 52 % not estab. normal Not Available [facility] ([facility]) [address] [facility], [place], [address], 04/14/2025 06:10:46 04/13/20 25 04/14/2025 CBC WITH DIFFE RENTI AL/PL ATELE T monocytes 8 % not estab. normal Not Available [facility] ([facility]) [address] [facility], [place], [address], 04/14/2025 06:10:46 04/13/20 25 04/14/2025 CBC WITH DIFFE RENTI AL/PL ATELE T eos 2 % not estab. normal Not Available [facility] ([facility]) [address] [facility], [place], [address], 04/14/2025 06:10:46 04/13/20 25 04/14/2025 CBC WITH DIFFE RENTI AL/PL ATELE T basos 1 % not estab. normal Not Available [facility] ([facility]) [address] [facility], [place], [address], 04/14/2025 06:10:46 04/13/20 25 04/14/2025 CBC WITH DIFFE RENTI AL/PL ATELE T immature cells PERIODICALS CLERK Not Available [facility] ([facility]) [address] [facility], [place], [address], 04/14/2025 06:10:46 04/13/20 25 04/14/2025 CBC WITH DIFFE RENTI AL/PL ATELE T neutrophils (absolute) 1.9 x10e3 /uL 1.4-7. 0 normal Not Available [facility] ([facility]) [address] [place], [address], 04/14/2025 06:10:46 04/13/20 25 04/14/2025 CBC WITH DIFFE RENTI AL/PL ATELE T lymphs (absolute) 2.7 x10e3 /uL 0.7-3. 1 normal Not Available [facility] ([facility]) [address] [place], [address], 04/14/2025 06:10:46 04/13/20 25 04/14/2025 CBC WITH DIFFE RENTI AL/PL ATELE T monocytes(ab solute) 0.4 x10e3 /uL 0.1-0. 9 normal Not Available [facility] ([facility]) [address] [place], [address], 04/14/2025 06:10:46 04/13/20 25 04/14/2025 CBC WITH DIFFE RENTI AL/PL ATELE T eos (absolute) 0.1 x10e3 /uL 0.0-0. 4 normal Not Available [facility] ([facility]) [address] [place], [address], 04/14/2025 06:10:46 04/13/20 25 04/14/2025 CBC WITH DIFFE RENTI AL/PL ATELE T baso (absolute) 0.0 x10e3 /uL 0.0-0. 2 normal Not Available [facility] ([facility]) [address] [place], [address], 04/14/2025 06:10:46 04/13/20 25 04/14/2025 CBC WITH DIFFE RENTI AL/PL ATELE T immature granulocytes 0 % not estab. Not Available [facility] ([facility]) [address] [place], [address], 04/14/2025 06:10:46 04/13/20 25 04/14/2025 CBC WITH DIFFE RENTI AL/PL ATELE T immature grans (abs) 0.0 x10e3 /uL 0.0-0. 1 Not Available [facility] ([facility]) [address], [place], [address], 04/14/2025 06:10:46 04/13/20 25 04/14/2025 CBC WITH DIFFE RENTI AL/PL ATELE T NRBC PERIODICALS CLERK Not Available [facility] ([facility]) [address] [facility], [place], [address], 04/14/2025 06:10:46 04/13/20 25 04/14/2025 CBC WITH DIFFE RENTI AL/PL ATELE T hematology comments: PERIODICALS CLERK Not Available [facility] ([facility]) [address] [facility], [place], [address], 04/14/2025 06:10:46 04/13/20 25 04/14/2025 BASIC METAB OLIC PANEL (8) glucose 97 mg/dL 70-99 normal Not Available [facility] ([facility]) [address] [facility], [place], [address], 04/14/2025 06:10:47 04/13/20 25 04/14/2025 BASIC METAB OLIC PANEL (8) BUN 6 mg/dL 8-27 below low normal Not Available [facility] ([facility]) [address] [facility], [place], [address], 04/14/2025 06:10:47 04/13/2004/14/2025 BASIC METAB OLIC PANEL (8) creatinine 0.51 mg/dL 0.57-1 .00 below low normal Not Available [facility] ([facility]) [address] [facility], [place], [address], 04/14/2025 06:10:47 04/13/20 04/14/2025 BASIC METAB OLIC PANEL (8) eGFR 94 mL/mi n/1.7 3 >59 normal Not Available [facility] ([facility]) [address] [place], [address], 04/14/2025 06:10:47 04/13/20 25 04/14/2025 BASIC METAB OLIC PANEL (8) BUN/creatini ne ratio 12 12-28 normal Not Available [facility] ([facility]) [address] [place], [address], 04/14/2025 06:10:47 04/13/2004/14/2025 BASIC METAB OLIC PANEL (8) sodium 144 mmol/ L 134-14 4 normal Not Available [facility] ([facility]) [address] [facility], [place], [address], 04/14/2025 06:10:47 04/13/20 25 04/14/2025 BASIC METAB OLIC PANEL (8) potassium 3.1 mmol/ L 3.5-5. 2 below low normal Not Available [facility] ([facility]) [address] [place], [address], 04/14/2025 06:10:47 04/13/20 25 04/14/2025 BASIC METAB OLIC PANEL (8) chloride 102 mmol/ L 96-106 normal Not Available [facility] ([facility]) [address] [place], [address], 04/14/2025 06:10:47 04/13/20 25 04/14/2025 BASIC METAB OLIC PANEL (8) carbon dioxide, total 24 mmol/ L 20-29 normal Not Available [facility] ([facility]) [address] [place], [address], 04/14/2025 06:10:47 04/13/20 25 04/14/2025 BASIC METAB OLIC PANEL (8) calcium 9.6 mg/dL 8.7-10 .3 normal Not Available [facility] ([facility]) [address] [facility] [place], [address], 04/14/2025 06:10:47 04/19/20 25 04/20/2025 BASIC METAB OLIC PANEL (8) glucose 103 mg/dL 70-99 above high normal Not Available [facility] ([facility]) [address] [facility] [place], [address], 04/20/2025 08:11:29 04/19/20 25 04/20/2025 BASIC METAB OLIC PANEL (8) BUN 8 mg/dL 8-27 normal Not Available [facility] ([facility]) [address] [facility] [place], [address], 04/20/2025 08:11:29 04/19/20 25 04/20/2025 BASIC METAB OLIC PANEL (8) creatinine 0.56 mg/dL 0.57-1 .00 below low normal Not Available [facility] ([facility]) [address] [facility], [address], 04/20/2025 08:11:29 04/19/2004/20/2025 BASIC METAB OLIC PANEL (8) eGFR 92 mL/mi n/1.7 3 >59 normal Not Available [facility] ([facility]) [address] [facility] [place], [address], 04/20/2025 08:11:29 04/19/20 25 04/20/2025 BASIC METAB OLIC PANEL (8) BUN/creatini ne ratio 14 12-28 normal Not Available [facility] ([facility] [address] [facility] [place], [address], 04/20/2025 08:11:29 04/19/20 25 04/20/2025 BASIC METAB OLIC PANEL (8) sodium 143 mmol/ L 134-14 4 normal Not Available [facility] ([facility]) [address] [facility] [place], [address], 04/20/2025 08:11:29 04/19/20 25 04/20/2025 BASIC METAB OLIC PANEL (8) potassium 3.8 mmol/ L 3.5-5. 2 normal Not Available [facility] ([facility]) [address] [facility], [place], [address], 04/20/2025 08:11:29 04/19/2004/20/2025 BASIC METAB OLIC PANEL (8) chloride 108 mmol/ L 96-106 above high normal Not Available [facility] ([facility]) [address] [facility], [place], [address], 04/20/2025 08:11:29 04/19/2004/20/2025 BASIC METAB OLIC PANEL (8) carbon dioxide, total 20 mmol/ L 20-29 normal Not Available [facility] ([facility]) [address] [facility], [place], [address], 04/20/2025 08:11:29 04/19/20 25 04/20/2025 BASIC METAB OLIC PANEL (8) calcium 9.1 mg/dL 8.7-10 .3 normal Not Available [facility] ([facility]) [address] [facility], [place], [address], 04/20/2025 08:11:29 04/13/20 25 04/15/2025 elect rocar diogr am No observ ation record ed. [email or web address] [address], [address], 04/15/2025 08:55:45 04/13/20 25 04/13/2025 elect rocar diogr am No observ ation record ed. [email or web address] [address], [address], 04/21/2025 11:44:14 04/16/20 25 04/15/2025 XR, chest , 2 view No observ ation record ed. [facility] [address], [place], [address], 04/16/2025 08:27:01 04/17/20 25 04/15/2025 US, echoc ardio gram No observ ation record ed. [facility] [address], [place], [address], 04/19/2025 10:41:46 Result Notes None recorded. Problems Name Problem SNOMED Code Status Onset Date Resolution Date Notes Provider Name and Address Organization Details Recorded Time Hypertensive disorder 50679437 Active Anna villasenor [place] - [facility] 11:26:49 Hyperlipidemi a 63501571 Active Anna villasenor [place] - [facility] 11:27:40 Vitamin D deficiency 11717496 Active 2021 Espinoza Nava APRN [address], [place], [address] , [place] - [facility] 14:21:11 Restless legs syndrome 61641119 Active 2021 Espinoza Nava APRN [address], [place], [address] , [place] - [facility] 14:27:46 Prediabetes 793892600 Active 2022 Espinoza Nava APRN [address], [place], [address] , [place] - [facility] 10:39:52 Problem Notes None recorded. Procedures Surgical History Date Name Laterality Status Provider Name and Address Organization Details Recorded Time 03/09/20 25 Advance Care Planning completed Anna Guerrero [place] - [facility] 03/09/2025 16:08:28 03/09/20 25 Functional Status Assessed completed Anna Guerrero [place] [facility] 03/09/2025 16:08:28 08/28/19 25 Medication Reconcilliation completed Anna Guerrero [place] [facility] 08/28/2024 08:40:02 03/19/20 24 Medication [...] Name and Address Organization Details Recorded Time 376667 Product containin g penicilli n (product) medicatio n Not available Not available Not available 02/22/2022 86843 8001 SNOMED Anna villasenor, [place] - [facility] 13:51:41 908048 Substance with sulfonami de structure and antibacte rial mechanism of action (substanc e) medicatio n fever moderate high 02/22/2022 08503 8003 SNOMED Anna Guerrero null, [place] - [facility] 10:26:26 767301 codeine medicatio n fever moderate high 02/22/2022 2670 RxNorm Anna villasenor, MICHAEL - [facility] 10:25:59 Medications Name Sig Start Date Stop [...] Updated DateTime 5 162.56 cm 24.2 kg/m2 61531.5 2 g 86 /min 98 % 18 [...] Have You Had Close Contact With A Laboratory[facility] COVID-19 While That Case Was Ill? [...] You Have Serious Difficulty Hearing? No SLIGHTLY CACHIL DEHE Information not available 02/21/2022 What Type Of [...] Or The Highest Degree You Have Received? [id number] Information not available 02/21/2022 Have There Been Any Changes To Your Family Or Social Situation? No Information not available 02/21/2022 What Is The Fluoride Status Of Your Home? Fluoridated Information not available 02/21/2022 Have You Recently Or Are You Planning To Travel To An Area With Zika Virus? No Information not available 02/21/2022 Do You Have A Medical Power Of Brake Tester? No Information not available 02/21/2022 What Was [...] Status Question Answer Note LastModified by Organizat [employer] Details LastModified Time Do you use any [...] Status Question Answer Note LastModified by Organ[employer]at [employer] Details LastModified Time Do you feel stressed (tense, restless, nervous, or anxious, or unable to sleep at night)? [id number] Information not available 02/21/2022 Do you have [...] Recorded Time zoster recombinant 4 completed Anna [place], [place] - [facility] 05/21/2024 10:40:04 Influenza, high-dose, quadrivalent, PF 3 completed [place] [facility] 05/06/2023 10:50:38 Tdap 4 completed [place] - [facility] 08/13/2023 14:19:07 COVID-19, mRNA, LNP-S, PF, annika-sucrose, 30 mcg/0.3 mL 4 completed [place] - [facility] 08/13/2023 14:20:08 Influenza, high-dose, trivalent, PF 4 completed [place] [facility] 05/22/2024 08:15:13 COVID-19, mRNA, LNP-S, PF, annika-sucrose, 30 mcg/0.3 mL 4 completed Anna Guerrero null, [facility] 05/22/2024 08:16:35 Pneumococcal conjugate PCV20, polysaccharide EAL118 conjugate, adjuvant, PF 5 completed Anna Guerrero null, [facility] 03/09/2025 18:42:08 Influenza, high-dose, trivalent, PF 5 completed [place] [facility] 05/11/2025 17:45:01 COVID-19, mRNA, LNP-S, PF, annika-sucrose, 30 mcg/0.3 mL 5 completed Anna Guerrero null, [facility] 05/11/2025 17:45:55 Td (adult), 2 Lf tetanus toxoid, preservative free, adsorbed 6 completed [place] [facility] 02/21/2022 08:33:05 pneumococcal polysaccharide PPV23 3 completed [place] - [facility] 02/21/2022 08:33:34 MMR 6 completed Anna Guerrero null, [place] - [facility] 02/21/2022 08:33:54 COVID-19, mRNA, LNP-S, PF, 100 mcg/0.5mL dose or 50 mcg/0.25mL dose 1 completed [place] [facility] 07/24/2022 10:12:41 COVID-19, mRNA, LNP-S, PF, 100 mcg/0.5mL dose or 50 mcg/0.25mL dose 1 completed Anan [place] [facility] 07/24/2022 10:12:41 [...] ICD10 Code Diagnosis IMO Codes Diagnosis Note [id number] Espinoza Nava APRN [address] [address] 04/13/2025 16:37:41 04/13/2025 17:30:29 Preoperative procedure 080357438 Z01.818 512766 moderate risk due to murmur and htn Diastolic murmur 9492204 1 I38 347269 murmur seems louder today, discussed with family/pt will order echo and then cardiologi st referral after results. [id number] Espinoza Nava APRN [address] [address] 04/19/2025 12:59:45 04/19/2025 13:38:47 Hypokalemia 49182899 E87.6 9791 [id number] Espinoza Nava APRN [address] [address] 05/11/2025 16:37:59 05/11/2025 17:24:42 Influenza vaccine needed 7952363155 106 Z23 Vaccination given 117778 003 Z23 [id number] Health Concerns Section Related Observation LastModified by Organization Detai ls LastModified Time None Recorded Concern Status LastModified by Organization Details LastModified Time None Recorded Payers Encounter Date Sequence Insurance Name Policy Number Policy Thornton Covered Member ID Thornton Member ID Guarantor Name 05/11/2025 1 [employer] (MEDICARE REPLACEMENT/A DVANTAGE - PPO) Emma Guerrero [id number] Emma Guerrero Notes Date Note Type Note Provider Name and Address Organization Details Recorded Time 05/11/2025 text/html 80 yr old female presents for a flu and covid vaccine. Espinoza Nava APRN [address], [place], [address], [place] - [facility] 05/11/2025 18:33:45 OBGyn Episode No OBEpisode recorded.
--- OUTSIDE RECORDS SUMMARY | 2025-06-19 03:50 | XMS_ITS | Continuity of Care Document ---
Author Organization MICHAEL - Alison Rodriguez [facility] Address [address] [place] [address] Care Team Providers Care Athletic Director Name Role Phone ESPINOZA NAVA Primary Care Provider Assessment No assessment recorded. Plan of Treatment Reminders Order Date Submit Date Provider Last Modified By Organization Details Last Modified Time Details Appointments None recorded. Lab venipunctur e 2024 025 [email or web address] [facility], [address], [facility], [place], [address], 09:06:21 Referral None recorded. Procedures None recorded. Surgeries [...] /uL 3.4-10 .8 normal Not Available [facility] ([facility]) [address] [place], [address], 04/14/2025 06:10:46 04/13/20 25 04/14/2025 CBC WITH DIFFE RENTI AL/PL ATELE T RBC 4.05 x10e6 /uL 3.77-5 .28 normal Not Available [facility] ([facility]) [address] [place], [address], 04/14/2025 06:10:46 04/13/20 04/14/2025 CBC WITH DIFFE RENTI AL/PL ATELE T hemoglobin 12.9 g/dL 11.1-1 5.9 normal Not Available [facility] ([facility]) [address] [facility], [place], [address], 04/14/2025 06:10:46 04/13/20 25 04/14/2025 CBC WITH DIFFE RENTI AL/PL ATELE T hematocrit 34.4 % 34.0-4 6.6 normal Not Available [facility] ([facility]) [address] [facility], [place], [address], 04/14/2025 06:10:46 04/13/20 25 04/14/2025 CBC WITH DIFFE RENTI AL/PL ATELE T MCV 85 fL 79-97 normal Not Available [facility] ([facility]) [address] [facility], [place], [address], 04/14/2025 06:10:46 04/13/20 25 04/14/2025 CBC WITH DIFFE RENTI AL/PL ATELE T MCH 31.9 pg 26.6-3 3.0 normal Not Available [facility] ([facility]) [address] [facility], [place], [address], 04/14/2025 06:10:46 04/13/20 25 04/14/2025 CBC WITH DIFFE RENTI AL/PL ATELE T MCHC 37.5 g/dL 31.5-3 5.7 above high normal Not Available [facility] ([facility]) [address] [facility], [place], [address], 04/14/2025 06:10:46 04/13/20 25 04/14/2025 CBC WITH DIFFE RENTI AL/PL ATELE T RDW 13.0 % 11.7-1 5.4 Not Available [facility] ([facility]) [address] [facility], [place], [address], 04/14/2025 06:10:46 04/13/20 25 04/14/2025 CBC WITH DIFFE RENTI AL/PL ATELE T platelets 216 x10e3 /uL 150-45 0 normal Not Available [facility] ([facility]) [address] [facility], [place], [address], 04/14/2025 06:10:46 04/13/20 25 04/14/2025 CBC WITH DIFFE RENTI AL/PL ATELE T neutrophils 37 % not estab. normal Not Available [facility] ([facility]) [address] [facility], [place], [address], 04/14/2025 06:10:46 04/13/20 25 04/14/2025 CBC WITH DIFFE RENTI AL/PL ATELE T lymphs 52 % not estab. normal Not Available [facility] ([facility]) [address] [facility], [place], [address], 04/14/2025 06:10:46 04/13/20 25 04/14/2025 CBC WITH DIFFE RENTI AL/PL ATELE T monocytes 8 % not estab. normal Not Available [facility] ([facility]) [address] [facility], [place], [address], 04/14/2025 06:10:46 04/13/20 25 04/14/2025 CBC WITH DIFFE RENTI AL/PL ATELE T eos 2 % not estab. normal Not Available [facility] ([facility]) [address] [facility], [place], [address], 04/14/2025 06:10:46 04/13/20 25 04/14/2025 CBC WITH DIFFE RENTI AL/PL ATELE T basos 1 % not estab. normal Not Available [facility] ([facility]) [address] [facility], [place], [address], 04/14/2025 06:10:46 04/13/20 25 04/14/2025 CBC WITH DIFFE RENTI AL/PL ATELE T immature cells [employer] Not Available [facility] ([facility]) [address] [place], [address], 04/14/2025 06:10:46 04/13/20 25 04/14/2025 CBC WITH DIFFE RENTI AL/PL ATELE T neutrophils (absolute) 1.9 x10e3 /uL 1.4-7. 0 normal Not Available [facility] ([facility]) [address] [place], [address], 04/14/2025 06:10:46 04/13/20 25 04/14/2025 CBC WITH DIFFE RENTI AL/PL ATELE T lymphs (absolute) 2.7 x10e3 /uL 0.7-3. 1 normal Not Available [facility] ([facility]) [address] [place], [address], 04/14/2025 06:10:46 04/13/20 25 04/14/2025 CBC WITH DIFFE RENTI AL/PL ATELE T monocytes(ab solute) 0.4 x10e3 /uL 0.1-0. 9 normal Not Available [facility] ([facility]) [address] [place], [address], 04/14/2025 06:10:46 04/13/20 25 04/14/2025 CBC WITH DIFFE RENTI AL/PL ATELE T eos (absolute) 0.1 x10e3 /uL 0.0-0. 4 normal Not Available [facility] ([facility]) [address] [place], [address], 04/14/2025 06:10:46 04/13/20 25 04/14/2025 CBC WITH DIFFE RENTI AL/PL ATELE T baso (absolute) 0.0 x10e3 /uL 0.0-0. 2 normal Not Available [facility] ([facility]) [address] [place], [address], 04/14/2025 06:10:46 04/13/20 25 04/14/2025 CBC WITH DIFFE RENTI AL/PL ATELE T immature granulocytes 0 % not estab. Not Available [facility] ([facility]) [address] [facility], [place], [address], 04/14/2025 06:10:46 04/13/20 25 04/14/2025 CBC WITH DIFFE RENTI AL/PL ATELE T immature grans (abs) 0.0 x10e3 /uL 0.0-0. 1 Not Available [facility] ([facility]) [address] [facility], [place], [address], 04/14/2025 06:10:46 04/13/2004/14/2025 CBC WITH DIFFE RENTI AL/PL ATELE T NRBC [employer] Not Available [facility] ([facility]) [address] [facility], [place], [address], 04/14/2025 06:10:46 04/13/2004/14/2025 CBC WITH DIFFE RENTI AL/PL ATELE T hematology comments: [employer] Not Available [facility] ([facility]) [address] [facility], [place], [address], 04/14/2025 06:10:46 04/13/20 25 04/14/2025 BASIC METAB OLIC PANEL (8) glucose 97 mg/dL 70-99 normal Not Available [facility] ([facility]) [address] [facility], [place], [address], 04/14/2025 06:10:47 04/13/2004/14/2025 BASIC METAB OLIC PANEL (8) BUN 6 mg/dL 8-27 below low normal Not Available [facility] ([facility]) [address] [place], [address], 04/14/2025 06:10:47 04/13/20 25 04/14/2025 BASIC METAB OLIC PANEL (8) creatinine 0.51 mg/dL 0.57-1 .00 below low normal Not Available [facility] ([facility]) [address] [place], [address], 04/14/2025 06:10:47 04/13/20 25 04/14/2025 BASIC METAB OLIC PANEL (8) eGFR 94 mL/mi n/1.7 3 >59 normal Not Available [facility] ([facility]) [address] [place], [address], 04/14/2025 06:10:47 04/13/20 25 04/14/2025 BASIC METAB OLIC PANEL (8) BUN/creatini ne ratio 12 12-28 normal Not Available [facility] ([facility]) [address] [facility] [place], [address], 04/14/2025 06:10:47 04/13/20 25 04/14/2025 BASIC METAB OLIC PANEL (8) sodium 144 mmol/ L 134-14 4 normal Not Available [facility] ([facility]) [address] [facility] [place], [address], 04/14/2025 06:10:47 04/13/2004/14/2025 BASIC METAB OLIC PANEL (8) potassium 3.1 mmol/ L 3.5-5. 2 below low normal Not Available [facility] ([facility]) [address] [facility] [place], [address], 04/14/2025 06:10:47 04/13/20 25 04/14/2025 BASIC METAB OLIC PANEL (8) chloride 102 mmol/ L 96-106 normal Not Available [facility] ([facility]) [address] [facility] [place], [address], 04/14/2025 06:10:47 04/13/20 25 04/14/2025 BASIC METAB OLIC PANEL (8) carbon dioxide, total 24 mmol/ L 20-29 normal Not Available [facility] ([facility]) [address] [facility] [place], [address], 04/14/2025 06:10:47 04/13/2004/14/2025 BASIC METAB OLIC PANEL (8) calcium 9.6 mg/dL 8.7-10 .3 normal Not Available [facility] ([facility]) [address] [facility] [place], [address], 04/14/2025 06:10:47 04/19/2004/20/2025 BASIC METAB OLIC PANEL (8) glucose 103 mg/dL 70-99 above high normal Not Available [facility] ([facility]) [address] [facility] [place], [address], 04/20/2025 08:11:29 04/19/2004/20/2025 BASIC METAB OLIC PANEL (8) BUN 8 mg/dL 8-27 normal Not Available [facility] ([facility]) [address] [place], [address], 04/20/2025 08:11:29 04/19/20 25 04/20/2025 BASIC METAB OLIC PANEL (8) creatinine 0.56 mg/dL 0.57-1 .00 below low normal Not Available [facility] ([facility]) [address] [place], [address], 04/20/2025 08:11:29 04/19/20 25 04/20/2025 BASIC METAB OLIC PANEL (8) eGFR 92 mL/mi n/1.7 3 >59 normal Not Available [facility] ([facility]) [address] [place], [address], 04/20/2025 08:11:29 04/19/20 25 04/20/2025 BASIC METAB OLIC PANEL (8) BUN/creatini ne ratio 14 12-28 normal Not Available [facility] ([facility]) [address] [place], [address], 04/20/2025 08:11:29 1004/20/2025 BASIC METAB OLIC PANEL (8) sodium 143 mmol/ L 134-14 4 normal Not Available [facility] ([facility]) [address] [facility], [place], [address], 04/20/2025 08:11:29 04/19/20 25 04/20/2025 BASIC METAB OLIC PANEL (8) potassium 3.8 mmol/ L 3.5-5. 2 normal Not Available [facility] ([facility]) [address] [place], [address], 04/20/2025 08:11:29 04/19/2004/20/2025 BASIC METAB OLIC PANEL (8) chloride 108 mmol/ L 96-106 above high normal Not Available [facility] ([facility]) [address] [facility], [place], [address], 04/20/2025 08:11:29 04/19/2004/20/2025 BASIC METAB OLIC PANEL (8) carbon dioxide, total 20 mmol/ L 20-29 normal Not Available [facility] ([facility]) [address] [facility] [place], [address], 04/20/2025 08:11:29 04/19/20 25 04/20/2025 BASIC METAB OLIC PANEL (8) calcium 9.1 mg/dL 8.7-10 .3 normal Not Available [facility] ([facility] [address] [place], [address], 04/20/2025 08:11:29 04/01/20 25 04/01/2025 elect rocar diogr am No observ ation record ed. [facility] [address], [address], 04/02/2025 08:38:57 04/02/20 25 04/01/2025 elect rocar diogr am No observ ation record ed. [address] [place], [address], 04/06/2025 14:35:42 04/07/[address], face, w/o contr ast No observ ation record ed. [facility] [address], [place], [address], 04/09/2025 13:21:48 04/07/[address], head, w/o contr ast No observ ation record ed. [facility] [address], [place], [address], 04/09/2025 13:21:48 04/13/2004/15/2025 elect rocar diogr am No observ ation record ed. [address], [address], 04/15/2025 08:55:45 04/13/2004/13/2025 elect rocar diogr am No observ ation record ed. [address], [address], 04/21/2025 11:44:14 04/16/2004/15/2025 XR, chest , 2 view No observ ation record ed. [address], [place], [address], 04/16/2025 08:27:01 04/17/2004/15/2025 , [facility] ardio gram No observ ation record ed. [address], [place], [address], 04/19/2025 10:41:46 Result Notes None recorded. Problems Name Problem SNOMED Code Status Onset Date Resolution Date Notes Provider Name and Address Organization Details Recorded Time Hypertensive disorder 29234093 Active MICHAEL Abdalla - [facility] 2 11:26:49 Hyperlipidemi a 46806353 Active Anna villasenor, [place] - [facility] 2 11:27:40 Vitamin D deficiency 37082684 Active 2021 Espinoza Nava, [employer] [address], [place], [address] , [place] - [facility] 2 14:21:11 Restless legs syndrome 59806698 Active 2021 Espinoza Nava APRN [address], [place], [address] , [place] - [facility] 2 14:27:46 Prediabetes 677044437 Active 2022 Espinoza Nava APRN [address], [place], [address] , [place] - [facility] 3 10:39:52 Problem [...] Name and Address Organization Details Recorded Time 099692 Product containin g penicilli n (product) medicatio n Not available Not available Not available 02/22/2022 78809 8001 SNOMED MICHAEL Abdalla [facility] 2 13:51:41 399101 Substance with sulfonami de structure and antibacte rial mechanism of action (substanc e) medicatio n fever moderate high 02/22/2022 99461 8003 SNOMED MICHAEL Abdalla [facility] 2 10:26:26 975916 codeine medicatio n fever moderate high 02/22/2022 2670 RxNorm MICHAEL Abdalla [facility] 2 10:25:59 Medications Name Sig Start [...] Not Available Vitals Date Recorded Body height Provider Name an d Address Organization Details Last Updated DateTime 04/19/2025 162.56 cm Anna Guerrero [place] - [facility] 1 13:05:12 Social History Question Answer Notes LastModified by [...] 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 AA29263-1 Information not available 02/21/2022 Have There Been Any Changes To Your Family Or Social Situation? No Information not available 02/21/2022 What Is The Fluoride Status Of Your Home? Fluoridated Information not available 02/21/2022 Have You Recently Or Are You Planning To Travel To An Area With Zika Virus? No Information not available 02/21/2022 Do You Have A Medical Power Of Manager Clinical Informatics? No Information not available 02/21/2022 What Was [...] anxious, or unable to sleep at night)? [id number] Information not available 02/21/2022 Do you have [...] mcg/0.3 mL 4 completed Anna Guerrero null, [facility] 05/22/2024 08:16:35 Pneumococcal conjugate PCV20, polysaccharide BOM349 conjugate, adjuvant, PF 5 completed Anna Guerrero null, [facility] 03/09/2025 18:42:08 Influenza, high-dose, trivalent, PF 5 completed Anna Guerrero null, [facility] 05/11/2025 17:45:01 COVID-19, mRNA, LNP-S, PF, annika-sucrose, 30 mcg/0.3 mL 5 completed Anna Guerrero null, [facility] 05/11/2025 17:45:55 Td (adult), 2 Lf tetanus toxoid, preservative free, adsorbed 6 completed Anna Guerrero null, [facility] 02/21/2022 08:33:05 pneumococcal polysaccharide PPV23 3 completed Anna Guerrero null, [facility] 02/21/2022 08:33:34 MMR 6 completed Anna Guerrero null, [facility] 02/21/2022 08:33:54 COVID-19, mRNA, LNP-S, PF, 100 mcg/0.5mL dose or 50 mcg/0.25mL dose 1 completed Anna Guerrero null, [facility] 07/24/2022 10:12:41 COVID-19, mRNA, LNP-S, PF, 100 mcg/0.5mL dose or 50 mcg/0.25mL dose 1 completed Anna Guerrero null, [facility] 07/24/2022 10:12:41 Influenza, split virus, trivalent, PF 0 completed Anna Guerrero null, [place] - [facility] 07/24/2022 10:12:41 COVID-19, mRNA, LNP-S, bivalent, PF, 50 mcg/0.5 mL or 25mcg/0.25 mL dose 2 completed Anna villasenor, [place] - [facility] 07/24/2022 10:12:42 Influenza, high-dose, quadrivalent, PF 2 completed Anna villasenor, MICHAEL - [facility] 07/24/2022 10:12:42 zoster recombinant 4 completed Anna villasenor, MICHAEL - [facility] 03/19/2024 10:16:44 Past Encounters Encounter ID Performer Location Encounter Start Date Encounter Closed Date Diagnosis/Indication Diagnosis SNOMED-CT Code Diagnosis ICD10 Code Diagnosis IMO Codes Diagnosis Note [id number] Espinoza Nava [address] [address] 04/01/2025 16:11:33 04/01/2025 17:08:03 Hypertensive disorder 54522750 I10 increase irbesartan 75mg to bidcheck bp at home keep logif no improvemen t return Hematoma 136448185 T14.8 XXA 983834 if any symptoms worsen go to ed Irregular heart beat 361 645573 I49.9 045275 [id number] Espinoza Nava [address] [address] 04/13/2025 16:37:41 04/13/2025 17:30:29 Preoperative procedure 075154269 Z01.818 433499 moderate risk due to murmur and htn Diastolic murmur 4683507 1 I38 564451 murmur seems louder today, discussed with family/pt will order echo and then cardiologi st referral after results. [id number] Espinoza Nava [employer] [address] [address] 04/19/2025 12:59:45 04/19/2025 13:38:47 Hypokalemia 45317328 E87.6 9791 Health Concerns Section Related Observation LastModified by Organization Detai ls LastModified Time None Recorded Concern Status LastModified by Organization Details LastModified Time None Recorded Payers Encounter Date Sequence Insurance Name Policy Number Policy Thornton Covered Member ID Thornton Member ID Guarantor Name 04/19/2025 1 [employer] (MEDICARE REPLACEMENT/A DVANTAGE - PPO) Emma Guerrero [id number] Emma Guerrero Notes Date Note Type Note Provider Name and Address Organization Details Recorded Time 04/19/2025 text/html 80 yr old female presents for lab work to recheck k+. Anna Guerrero null, [place] - [facility] 04/19/2025 13:07:47 OBGyn Episode No OBEpisode recorded.
[2025-06-19] MEDS: LIDOCAINE 2% UROJET 10ML 2 ML TP (03:54)
[2025-06-19] MEDS: COCAINE 4% TOPICAL SOLN 4ML BOTTLE 2 ML TP (03:54)
[2025-06-19] MEDS: LIDOCAINE 1% W/EPI 1:100,000 20ML VIAL 10 ML IM (05:35)
[2025-06-19 05:39] VITALS: BP 178/78; PULSE 88; RESP 18; TEMP 37.1; O2SAT 98
[2025-06-19] MEDS: BACITRACIN ZINC OINT 30GM TUBE TP (05:50)
== END 2025-06-19 05:50 | disposition home or self-care (01) ==
PROVIDERS: Emergency Provider Emergency Medicine; PCP Nurse Practitioner Family
DX: S01.81XA Laceration without foreign body of other part of head, initial encounter (principal); S61.412A Laceration without foreign body of left hand, initial encounter; E04.1 Nontoxic single thyroid nodule; W01.10XA Fall on same level from slipping, tripping and stumbling with subsequent striking against unspecified object, initial encounter
CPT/HCPCS: 12004; 12011; 70450; 71045; 72125; 72170; 73120; 99283; 99285; J0169; J2004